=== PATIENT | male | born 1940 | race Caucasian/White ===

== ENCOUNTER 2020-05-13 11:28 | Emergency (ER) | payer MEDICARE, BC ==
--- NOTE | 2020-05-13 12:03 | EDM.PDOC ---
ED HPI GENERAL MEDICAL PROBLEM - General Chief Complaint: Cardiovascular Problem Stated Complaint: DIZZY Time Seen by Provider: 05/13/20 11:45 Source of Information: Reports: Patient, Family, Old Records, RN History Limitations: Reports: No Limitations - History of Present Illness INITIAL COMMENTS - FREE TEXT/NARRATIVE: 79-year-old male felt a little lightheaded this morning but he does on occasion feel like that. He was watching his partner in the kitchen when all of a sudden she heard him fall and found him face down on the floor. Currently no loss of consciousness. He was awake and seemingly aware right away. He wanted to get up and said he felt fine but he remained bit dizzy when he did set up apparently. Paramedics were called and they noted that he would get hypotensive when they would sit him up or try to stand apparently. He denies any visual or auditory changes or headaches. He denies any chest pain or shortness of breath and no feeling of palpitations at any time He works out regularly on an exercise bike wiyot and walks regularly and has not had any issues and feels he is in good shape. He was here 5 years ago with a syncopal episode and was noted to have atrial fib flutter similar to today and subsequently pacemaker which she has at the moment. He is not on blood thinners but does take aspirin He does not recall and his partner does not recall any peripheral cyanosis episodes - Related Data Allergies Allergy/AdvReac Type Severity Reaction Status Date / Time No Known Allergies Allergy Verified 05/13/20 11:43 Home Meds: Home Meds Aspirin [Olivia Chewable Aspirin] 81 mg PO DAILY 10/05/14 [History] Multivitamin [Multivitamins] 1 tab PO DAILY 10/05/14 [History] Allopurinol [Zyloprim] 2 tab PO DAILY 05/13/20 [History] Colchicine 2 tab PO ASDIRECTED 05/13/20 [History] Folic Acid 1 tab PO DAILY 05/13/20 [History] Methotrexate 4 tab PO WEEKLY 05/13/20 [History] amLODIPine [Norvasc] 0.5 tab PO DAILY 05/13/20 [History] lisinopriL [Prinivil] 1 tab PO DAILY 05/13/20 [History] Past Medical History Other Musculoskeletal History: Polymyositis rheumatica Social & Family History - Living Situation & Occupation Living situation: Reports: , with Significant Other Occupation: Retired ED ROS GENERAL - Review of Systems Review Of Systems: See Below Constitutional: Reports: No Symptoms HEENT: Reports: No Symptoms Respiratory: Reports: No Symptoms Cardiovascular: Reports: Lightheadedness, Syncope Endocrine: Reports: No Symptoms GI/Abdominal: Reports: No Symptoms : Reports: No Symptoms Musculoskeletal: Reports: No Symptoms Skin: Reports: No Symptoms Neurological: Reports: Dizziness, Weakness Psychiatric: Reports: No Symptoms Hematologic/Lymphatic: Reports: No Symptoms ED EXAM, GENERAL - Physical Exam Exam: See Below Free Text/Narrative:: Alert cooperative older male lying on the gurney appearing anxious but not in immediate distress. Vital signs are noted and his pulse ox is in the mid 80s. HEENT shows no tenderness on compression of the head or the face. He has a bruise on his nose but no bony tenderness is noted. He does have an abrasion to his upper lip but good occlusion and no pain on biting. Tongue is okay. No facial droop. HEENT shows eyes ears nose and throat otherwise normal His neck is supple nontender normal range of motion Chest is clear with a regular rate and rhythm with occasional extra beats. Pacemaker in the upper left chest Abdomen soft active bowel sounds nontender without mass Extremities without edema or abnormality noted Skin has some cyanosis of the nailbeds on the hands bilaterally which he and his partner have not noticed before. She says his hands are always cold however Neurologic physiologic range of motion tone without focal deficits noted He notes concern about being in the hospital because of the Covid fear. He has been pretty much at home with his partner except for trips to the mailbox with minimal exposure he thinks He is under the care of Dr. Johnson tubular riveter in [place] and Dr. Blair in [place] Exam Limited By: No Limitations General Appearance: Alert, WD/WN, Anxious Course - Vital Signs Text/Narrative:: Review of the old records shows 5 years ago a similar presentation as today. Cardiogram has the same morphology historically as today with atrial fib flutter paced rhythm and some PVCs. He is under the care of Dr. Johnson cardiology and [facility] and Dr. Blair in [place] 1:[address] of the head is read as negative per radiologist. BNP is 558 which is slightly elevated CRP 0.82 slightly up Hemoglobin is 16.4 D-dimer is 883 which adjusted for age may be normal Covid is negative Carboxyhemoglobin 2.3 Chest x-ray has a pacemaker as I see it in other than penetration appears similar to that of 2015. On 2 L of oxygen his pulse ox comes from the mid 80s to the 90s Patient is ambulating around the room. A standing blood pressure is about 120/80. He would like to go home and I do not see any real reason he has a stay in hospital at the moment. I feel he can adequately follow-up with Dr. Johnson and or Dr. Parks in the office and return here for recurrent new symptoms. He is advised about using great care. He would like to ride 81 miles on his birthday [birth year] coincident with my birthday Last Recorded V/S: Last Vital Signs Temp 36.2 C 05/13/20 12:06 Pulse 77 05/13/20 13:03 Resp 16 05/13/20 13:03 BP 127/87 05/13/20 13:18 Pulse Ox 86 L 05/13/20 12:06 - Orders/Labs/Meds Labs: Laboratory Tests 05/13/20 05/13/20 05/13/20 Range/Units 12:02 12:02 12:02 WBC 9.1 (4.5-11.0) K/uL RBC 4.70 (4.30-5.90) M/uL Hgb 16.4 H D (12.0-15.0) g/dL Hct 47.8 (40.0-54.0) % MCV 102 H (80-98) fL MCH 35 H (27-31) pg MCHC 34 (32-36) % Plt Count 208 (150-400) K/uL PT 12.1 H (9.5-12.0) sec INR 1.11 (0.80-1.20) D-Dimer, Quantitative 883.26 H (0.0-500.0) ng/mL ABG Hemoglobin (13.5-18.0) g/dL ABG Oxyhemoglobin % ABG Carboxyhemoglobin (0.0-1.6) % ABG Methemoglobin % VBG pH (7.350-7.450) VBG pCO2 mm/Hg VBG pO2 mm/Hg VBG HCO3 mmol/L VBG Total CO2 mmol/L VBG O2 Saturation VBG O2 Content %vol VBG Base Excess mm/L O2 Delivery Device Sodium (140-148) mmol/L Potassium (3.6-5.2) mmol/L Chloride (100-108) mmol/L Carbon Dioxide (21-32) mmol/L Anion Gap (5.0-14.0) mmol/L BUN (7-18) mg/dL Creatinine (0.8-1.3) mg/dL Est Cr Clr Drug Dosing mL/min Estimated GFR (MDRD) (>60) Glucose (74-106) mg/dL Calcium (8.5-10.1) mg/dL Total Bilirubin (0.2-1.0) mg/dL AST (15-37) U/L ALT (12-78) U/L Alkaline Phosphatase (46-116) U/L Troponin I (0.000-0.056) ng/mL C-Reactive Protein (0.0-0.3) mg/dL NT-Pro-B Natriuret Pep (5-450) pg/mL Total Protein (6.4-8.2) g/dL Albumin (3.4-5.0) g/dL Globulin (2.3-3.5) g/dL Albumin/Globulin Ratio (1.2-2.2) Urine Color (YELLOW) Urine Appearance (CLEAR) Urine pH (5.0-8.0) Ur Specific Sperry (1.008-1.030) Urine Protein (NEGATIVE) mg/dL Urine Glucose (UA) (NEGATIVE) mg/dL Urine Ketones (NEGATIVE) mg/dL Urine Occult Blood (NEGATIVE) Urine Nitrite (NEGATIVE) Urine Bilirubin (NEGATIVE) Urine Urobilinogen (0.2-1.0) EU/dL Ur Leukocyte Esterase (NEGATIVE) Urine RBC (0-5) Urine WBC (0-5) Ur Epithelial Cells Amorphous Sediment Urine Bacteria Urine Mucus SARS CoV-2 RNA Rapid JOSE 05/13/20 05/13/20 05/13/20 Range/Units 12:02 12:02 12:12 WBC (4.5-11.0) K/uL RBC (4.30-5.90) M/uL Hgb (12.0-15.0) g/dL Hct (40.0-54.0) % MCV (80-98) fL MCH (27-31) pg MCHC (32-36) % Plt Count (150-400) K/uL PT (9.5-12.0) sec INR (0.80-1.20) D-Dimer, Quantitative (0.0-500.0) ng/mL ABG Hemoglobin 17.0 (13.5-18.0) g/dL ABG Oxyhemoglobin 40.1 % ABG Carboxyhemoglobin 2.3 H (0.0-1.6) % ABG Methemoglobin 0.8 % VBG pH 7.439 (7.350-7.450) VBG pCO2 38.2 mm/Hg VBG pO2 24.8 mm/Hg VBG HCO3 25.4 mmol/L VBG Total CO2 21.8 mmol/L VBG O2 Saturation 41.4 VBG O2 Content 9.6 %vol VBG Base Excess 1.9 mm/L O2 Delivery Device Room air Sodium 136 L (140-148) mmol/L Potassium 4.6 (3.6-5.2) mmol/L Chloride 101 (100-108) mmol/L Carbon Dioxide 25 (21-32) mmol/L Anion Gap 14.6 H (5.0-14.0) mmol/L BUN 16 (7-18) mg/dL Creatinine 1.3 (0.8-1.3) mg/dL Est Cr Clr Drug Dosing 48.27 mL/min Estimated GFR (MDRD) 53 L (>60) Glucose 115 H (74-106) mg/dL Calcium 9.2 (8.5-10.1) mg/dL Total Bilirubin 0.7 D (0.2-1.0) mg/dL AST 20 (15-37) U/L ALT 28 (12-78) U/L Alkaline Phosphatase 64 (46-116) U/L Troponin I < 0.017 (0.000-0.056) ng/mL C-Reactive Protein 0.82 H (0.0-0.3) mg/dL NT-Pro-B Natriuret Pep 558 H (5-450) pg/mL Total Protein 6.7 (6.4-8.2) g/dL Albumin 3.5 (3.4-5.0) g/dL Globulin 3.2 (2.3-3.5) g/dL Albumin/Globulin Ratio 1.1 L (1.2-2.2) Urine Color (YELLOW) Urine Appearance (CLEAR) Urine pH (5.0-8.0) Ur Specific Sperry (1.008-1.030) Urine Protein (NEGATIVE) mg/dL Urine Glucose (UA) (NEGATIVE) mg/dL Urine Ketones (NEGATIVE) mg/dL Urine Occult Blood (NEGATIVE) Urine Nitrite (NEGATIVE) Urine Bilirubin (NEGATIVE) Urine Urobilinogen (0.2-1.0) EU/dL Ur Leukocyte Esterase (NEGATIVE) Urine RBC (0-5) Urine WBC (0-5) Ur Epithelial Cells Amorphous Sediment Urine Bacteria Urine Mucus SARS CoV-2 RNA Rapid JOSE Negative 05/13/20 Range/Units 13:31 WBC (4.5-11.0) K/uL RBC (4.30-5.90) M/uL Hgb (12.0-15.0) g/dL Hct (40.0-54.0) % MCV (80-98) fL MCH (27-31) pg MCHC (32-36) % Plt Count (150-400) K/uL PT (9.5-12.0) sec INR (0.80-1.20) D-Dimer, Quantitative (0.0-500.0) ng/mL ABG Hemoglobin (13.5-18.0) g/dL ABG Oxyhemoglobin % ABG Carboxyhemoglobin (0.0-1.6) % ABG Methemoglobin % VBG pH (7.350-7.450) VBG pCO2 mm/Hg VBG pO2 mm/Hg VBG HCO3 mmol/L VBG Total CO2 mmol/L VBG O2 Saturation VBG O2 Content %vol VBG Base Excess mm/L O2 Delivery Device Sodium (140-148) mmol/L Potassium (3.6-5.2) mmol/L Chloride (100-108) mmol/L Carbon Dioxide (21-32) mmol/L Anion Gap (5.0-14.0) mmol/L BUN (7-18) mg/dL Creatinine (0.8-1.3) mg/dL Est Cr Clr Drug Dosing mL/min Estimated GFR (MDRD) (>60) Glucose (74-106) mg/dL Calcium (8.5-10.1) mg/dL Total Bilirubin (0.2-1.0) mg/dL AST (15-37) U/L ALT (12-78) U/L Alkaline Phosphatase (46-116) U/L Troponin I (0.000-0.056) ng/mL C-Reactive Protein (0.0-0.3) mg/dL NT-Pro-B Natriuret Pep (5-450) pg/mL Total Protein (6.4-8.2) g/dL Albumin (3.4-5.0) g/dL Globulin (2.3-3.5) g/dL Albumin/Globulin Ratio (1.2-2.2) Urine Color Yellow (YELLOW) Urine Appearance Slightly cloudy A (CLEAR) Urine pH 7.5 (5.0-8.0) Ur Specific Sperry 1.020 (1.008-1.030) Urine Protein 30 H (NEGATIVE) mg/dL Urine Glucose (UA) Negative (NEGATIVE) mg/dL Urine Ketones Trace H (NEGATIVE) mg/dL Urine Occult Blood Negative (NEGATIVE) Urine Nitrite Negative (NEGATIVE) Urine Bilirubin Negative (NEGATIVE) Urine Urobilinogen 0.2 (0.2-1.0) EU/dL Ur Leukocyte Esterase Negative (NEGATIVE) Urine RBC Not seen (0-5) Urine WBC 0-5 (0-5) Ur Epithelial Cells Not seen Amorphous Sediment Moderate Urine Bacteria Rare Urine Mucus Rare SARS CoV-2 RNA Rapid JOSE Departure - Departure Time of Disposition: 13:45 Disposition: Home, Self-Care 01 Condition: Good Clinical Impression: Syncope and collapse, Pacemaker, Arrhythmia, Facial abrasion, Atrial fibrillation and flutter Instructions: Syncope, [id number] Referrals: Live Blair MD [Primary Care Provider] - Forms: ED Department Discharge Additional Instructions: Use care when you are sitting up or standing to walk. If you feel faint or lightheaded sit down or lay down immediately. Return for new or worse symptoms. Follow-up with Dr. Johnson by appointment this next week and call him. Sepsis Event Note (ED) - Focused Exam Vital Signs: Vital Signs Temp Pulse Resp BP Pulse Ox 05/13/20 13:18 127/87 05/13/20 13:03 77 16 117/92 H 05/13/20 12:43 60 15 124/85 05/13/20 12:06 36.2 C 72 17 144/64 H 86 L 05/13/20 12:03 60 14 118/76 05/13/20 11:43 71 10 L 133/80 05/13/20 11:35 36.2 C 72 17 144/64 H 86 L
--- NOTE | 2020-05-13 12:51 | CRLCT ---
HISTORY: Syncope. COMPARISON: None. TECHNIQUE: Noncontrast axial images were obtained through the brain. FINDINGS: Meneses-white matter differentiation is preserved. No evidence for acute intracranial hemorrhage or infarction. No midline shift or mass effect. The ventricles are nondilated and symmetric. No abnormal intra or extra-axial fluid collection. The bony calvaria are intact. Visualized paranasal sinuses and mastoid air cells are clear. Benign-appearing scalp cysts. Impression : No acute intracranial pathology. Please note that all CT scans at this facility use dose modulation, iterative reconstruction, and/or weight-based dosing when appropriate to reduce radiation dose to as low as reasonably achievable. Dictated by Martine Vargas MD @ May 13 2020 12:45PM Signed by Dr. Martine Vargas @ May 13 2020 12:49PM
[2020-05-13 13:17] VITALS: PULSE 77
--- NOTE | 2020-05-13 13:30 | CRLCR ---
HISTORY: Pain. COMPARISON: 10/05/2014. FINDINGS: Mild interstitial prominence similar to previous study. No acute infiltrate. Heart size and pulmonary vascularity are within normal limits. Pacemaker. Dictated by Martine Vargas MD @ May 13 2020 1:28PM Signed by Dr. Martine Vargas @ May 13 2020 1:29PM
[2020-05-13 13:35] VITALS: BP 127/87
== END 2020-05-13 14:06 | disposition home or self-care (01) ==
LOC: JP.ED 11:28
DX: R55 Syncope and collapse (principal); S00.33XA Contusion of nose, initial encounter; S00.511A Abrasion of lip, initial encounter; I48.92 Unspecified atrial flutter; R23.0 Cyanosis; Z20.822 Contact with and (suspected) exposure to COVID-19; Z79.82 Long term (current) use of aspirin; Z95.0 Presence of cardiac pacemaker; Z79.899 Other long term (current) drug therapy; W19.XXXA Unspecified fall, initial encounter
CPT/HCPCS: 36415; 70450; 71045; 80053; 81001; 82803; 83880; 84484; 85027; 85379; 85610; 86140; 99285; U0002; 99284

== ENCOUNTER 2020-09-26 07:54 | Day surgery (SDC) | payer MEDICARE, BC ==
[~2020-09-26 07:54] MED LIST: Bupivacaine 0.5% 50 ML MDV ONE; Lidocaine 1% with EPINEPHrine 1:100,000 50 ML MDV ONE; Meropenem 500 MG SDV ONE
[2020-09-26] MEDS ORDERED: ceFAZolin 2 GM in Premix Bag 1 BAG IV ONE (08:15)
[2020-09-26] MEDS ORDERED: Acetaminophen 500 MG Tab PO ONE (08:15)
[2020-09-26] MEDS ORDERED: Dextrose 5%-Lactated Ringers 1,000 ML IV SCH (08:15)
[2020-09-26] MEDS ORDERED: Succinylcholine 200 MG/10 ML MDV ONE (08:55)
[2020-09-26] MEDS ORDERED: Neostigmine Methylsulfate 1 MG/ML 5 ML Syringe ONE (08:55)
[2020-09-26] MEDS ORDERED: fentaNYL 250 MCG/5 ML SDV ONE (08:55)
[2020-09-26] MEDS ORDERED: Dexamethasone 4 MG/ML SDV ONE (08:55)
[2020-09-26] MEDS ORDERED: Rocuronium 50 MG/5 ML Vial ONE (08:55)
[2020-09-26] MEDS ORDERED: Ondansetron 4 MG/2 ML SDV ONE (08:55)
[2020-09-26] MEDS ORDERED: Propofol 200 MG/20 ML SDV ONE (08:55)
[2020-09-26] MEDS ORDERED: Glycopyrrolate 0.2 MG/ML 5 ML MDV ONE (08:55)
[2020-09-26] MEDS ORDERED: Phenylephrine 1% 10 MG/ML SDV ONE (09:28)
[2020-09-26] MEDS ORDERED: Sodium Chloride 0.9% 10 ML ONE (09:28)
[2020-09-26] MEDS ORDERED: Bupivacaine 0.5%/EPINEPHrine 1:200,000 50 ML MDV ONE (09:41)
[2020-09-26] MEDS ORDERED: Sugammadex Sodium 200 MG/2 ML VIAL ONE (09:58)
[2020-09-26 11:45] VITALS: BP 115/71; PULSE 66
--- NOTE | 2020-09-27 16:58 | PCM.EKG ---
#1 Interpretation EKG Date: 09/26/20 Time: 08:20 Rhythm: Other (Paced ventricular complex, occasional premature ventricular complex) Rate (Beats/Min): 73 Maben: Normal P-Wave: Absent QRS: Other (Low voltage extremity leads) ST-T: Normal QT: Normal Comparison: NA - No Prior EKG
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
== END 2020-09-26 12:05 | disposition home or self-care (01) ==
LOC: JP.SDS 07:54
PROVIDERS: ATTEND Surgery
DX: S85.182A Other specified injury of posterior tibial artery, left leg, initial encounter (principal); M79.89 Other specified soft tissue disorders; Z87.891 Personal history of nicotine dependence; Z79.82 Long term (current) use of aspirin; Z79.899 Other long term (current) drug therapy; X58.XXXA Exposure to other specified factors, initial encounter
CPT/HCPCS: 27601; 27603; 35226; 36415; 80048; 83735; 84100; 85027; 87070; 87075; 87205; 88304; 93005; A9270; J0330; J1100; J2020; J2185; J2370; J2405; J2704; J2710; J3010; J3490; J7121

== ENCOUNTER 2020-09-29 16:17 | Inpatient (IN) | payer MEDICARE, BC ==
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
[2020-09-29] MEDS ORDERED: ceFAZolin 1 GM in Sodium Chloride 0.9% 50 ML IV ONE (17:03)
[2020-09-29] MEDS ORDERED: Sodium Chloride 0.9% 1,000 ML IV SCH ×2 (17:15→18:07)
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
[2020-09-29] MEDS ORDERED: Sodium Chloride 0.9% 10 ML Syringe FLUSH PRN (18:07)
[2020-09-29] MEDS ORDERED: Ondansetron 4 MG/2 ML SDV IV PRN (18:07)
[2020-09-29] MEDS ORDERED: Polyethylene Glycol 3350 Powder 17 GM Packet PO PRN (18:07)
[2020-09-29] MEDS ORDERED: Vancomycin 1 GM SDV IV SCH (19:00)
[2020-09-29] MEDS: oxyCODONE 5 MG Tab PO PRN (19:25)
[2020-09-29] MEDS: Piperacillin/Tazobactam 3.375 GM in Sodium Chloride 0.9% 50 ML IV SCH (19:39)
[2020-09-29] MEDS ORDERED: Water For Injection, Sterile 20 ML ONE (19:52)
[2020-09-29] MEDS: Acetaminophen 325 MG Tab PO PRN (20:37)
[2020-09-29] MEDS ORDERED: ceFAZolin 1 GM in Sodium Chloride 0.9% 50 ML IV SCH (22:00)
[2020-09-29] MEDS: HYDROmorphone 0.5 MG/0.5 ML Syringe IVPUSH PRN (22:44)
[2020-09-29] MEDS: Melatonin 3 MG Tab PO SCH (22:46)
[2020-09-30] MEDS: Piperacillin/Tazobactam 3.375 GM in Sodium Chloride 0.9% 50 ML IV SCH ×2 (00:27→06:02)
[2020-09-30] MEDS: HYDROmorphone 0.5 MG/0.5 ML Syringe IVPUSH PRN ×8 (04:16→23:06)
[2020-09-30] MEDS ORDERED: fentaNYL 100 MCG/2 ML SDV ONE (09:33)
[2020-09-30] MEDS ORDERED: Propofol 200 MG/20 ML SDV ONE (09:33)
[2020-09-30] MEDS: Lisinopril 20 MG Tab PO SCH (11:02)
[2020-09-30] MEDS: Spironolactone 25 MG Tab PO SCH (11:03)
[2020-09-30] MEDS: Metoprolol Succinate 50 MG Tab.ER PO SCH (11:03)
[2020-09-30] MEDS: Aspirin 81 MG Tab.Chew PO SCH (11:03)
[2020-09-30] MEDS: Allopurinol 100 MG Tab PO SCH (11:09)
[2020-09-30] MEDS: Acetaminophen 325 MG Tab PO PRN (11:48)
[2020-09-30] MEDS ORDERED: Piperacillin/Tazobactam/Dext 3.375 GM in Premix Bag 1 BAG IV SCH (12:00)
[2020-09-30] MEDS: Cyclobenzaprine 10 MG Tab PO PRN (12:21)
--- NOTE | 2020-09-30 15:57 | PCM.PN ---
- General Info Date of Service: 09/30/20 Subjective Update: Mr. Moralez has been fairly stable since admission, white blood cell count has remained normal and he has been afebrile. He is somewhat confused and mildly agitated. He was taken to the operating room earlier today by Dr. eParson for manipulation of the foot and ankle as well as placement of a cam walker. He continues to experience pain. He is unable to provide meaningful information concerning symptoms or review of systems because of confusion. Functional Status: Reports: Tolerating Diet, Urinating. Denies: Ambulating - Patient Data Vitals - Most Recent: Last Vital Signs Temp 99.1 F 09/30/20 14:33 Pulse 105 H 09/30/20 14:33 Resp 18 09/30/20 14:33 BP 109/80 09/30/20 14:33 Pulse Ox 97 09/30/20 14:33 Weight - Most Recent: 203 lb 11.2 oz I&O - Last 24 Hours: Intake & Output 09/30/20 09/30/20 09/30/20 06:59 14:59 22:59 Intake Total 300 Output Total 400 Balance -100 Lab Results Last 24 Hours: Laboratory Results - last 24 hr 09/29/20 09/29/20 09/29/20 Range/Units 16:48 16:48 16:48 WBC (4.5-11.0) K/uL RBC (4.30-5.90) M/uL Hgb (12.0-15.0) g/dL Hct (40.0-54.0) % MCV (80-98) fL MCH (27-31) pg MCHC (32-36) % Plt Count (150-400) K/uL Neut % (Auto) (36-66) % Lymph % (Auto) (24-44) % Steele % (Auto) (2-6) % Eos % (Auto) (2-4) % Baso % (Auto) (0-1) % Sodium (140-148) mmol/L Potassium (3.6-5.2) mmol/L Chloride (100-108) mmol/L Carbon Dioxide (21-32) mmol/L Anion Gap (5.0-14.0) mmol/L BUN (7-18) mg/dL Creatinine (0.8-1.3) mg/dL Est Cr Clr Drug Dosing mL/min Estimated GFR (MDRD) (>60) Glucose (74-106) mg/dL Lactic Acid 1.1 (0.4-2.0) mmol/L Calcium (8.5-10.1) mg/dL C-Reactive Protein 14.34 H (0.0-0.3) mg/dL Procalcitonin < 0.05 ng/mL 09/29/20 09/29/20 09/30/20 Range/Units 16:53 16:53 05:30 WBC 7.3 8.3 (4.5-11.0) K/uL RBC 3.14 L 2.95 L (4.30-5.90) M/uL Hgb 11.1 L 10.3 L (12.0-15.0) g/dL Hct 31.6 L 29.7 L (40.0-54.0) % MCV 101 H 101 H (80-98) fL MCH 35 H 35 H (27-31) pg MCHC 35 35 (32-36) % Plt Count 270 248 (150-400) K/uL Neut % (Auto) 74.9 H 82.3 H (36-66) % Lymph % (Auto) 11.4 L 7.9 L (24-44) % Steele % (Auto) 12.8 H 9.7 H (2-6) % Eos % (Auto) 0.6 L 0.0 L (2-4) % Baso % (Auto) 0.3 0.1 (0-1) % Sodium 128 L (140-148) mmol/L Potassium 4.6 (3.6-5.2) mmol/L Chloride 94 L (100-108) mmol/L Carbon Dioxide 25 (21-32) mmol/L Anion Gap 13.6 (5.0-14.0) mmol/L BUN 24 H (7-18) mg/dL Creatinine 1.0 (0.8-1.3) mg/dL Est Cr Clr Drug Dosing 63.59 mL/min Estimated GFR (MDRD) > 60 (>60) Glucose 93 (74-106) mg/dL Lactic Acid (0.4-2.0) mmol/L Calcium 9.2 (8.5-10.1) mg/dL C-Reactive Protein (0.0-0.3) mg/dL Procalcitonin ng/mL 09/30/20 Range/Units 05:30 WBC (4.5-11.0) K/uL RBC (4.30-5.90) M/uL Hgb (12.0-15.0) g/dL Hct (40.0-54.0) % MCV (80-98) fL MCH (27-31) pg MCHC (32-36) % Plt Count (150-400) K/uL Neut % (Auto) (36-66) % Lymph % (Auto) (24-44) % Steele % (Auto) (2-6) % Eos % (Auto) (2-4) % Baso % (Auto) (0-1) % Sodium 130 L (140-148) mmol/L Potassium 4.6 (3.6-5.2) mmol/L Chloride 98 L (100-108) mmol/L Carbon Dioxide 22 (21-32) mmol/L Anion Gap 14.6 H (5.0-14.0) mmol/L BUN 16 (7-18) mg/dL Creatinine 0.9 (0.8-1.3) mg/dL Est Cr Clr Drug Dosing 68.56 mL/min Estimated GFR (MDRD) > 60 (>60) Glucose 116 H (74-106) mg/dL Lactic Acid (0.4-2.0) mmol/L Calcium 8.1 L (8.5-10.1) mg/dL C-Reactive Protein (0.0-0.3) mg/dL Procalcitonin ng/mL Med Orders - Current: Current Medications Acetaminophen (Acetaminophen 325 Mg Tab) 650 mg PO Q4H PRN PRN Reason: Pain (Mild 1-3)/fever Last Admin: 09/30/20 11:48 Dose: 650 mg Documented by: Allopurinol (Allopurinol 100 Mg Tab) 200 mg PO DAILY COUNT INCLUDES THE [facility] Last Admin: 09/30/20 11:09 Dose: 200 mg Documented by: Aspirin (Aspirin 81 Mg Tab.Chew) 81 mg PO DAILY COUNT INCLUDES THE [facility] Last Admin: 09/30/20 11:03 Dose: 81 mg Documented by: Cyclobenzaprine HCl (Cyclobenzaprine 10 Mg Tab) 10 mg PO Q8H PRN PRN Reason: Spasms Last Admin: 09/30/20 12:21 Dose: 10 mg Documented by: Hydromorphone HCl (Hydromorphone 0.5 Mg/0.5 Ml Syringe) 0.5 - 1 mg IVPUSH Q1H PRN PRN Reason: Pain (severe 7-10) Last Admin: 09/30/20 14:27 Dose: 0.5 mg Documented by: Lisinopril (Lisinopril 20 Mg Tab) 20 mg PO DAILY COUNT INCLUDES THE [facility] Last Admin: 09/30/20 11:02 Dose: 20 mg Documented by: Melatonin (Melatonin 3 Mg Tab) 3 mg PO BEDTIME COUNT INCLUDES THE [facility] Last Admin: 09/29/20 22:46 Dose: 3 mg Documented by: Methotrexate (Methotrexate 2.5 Mg Tab) 10 mg PO Q7D COUNT INCLUDES THE [facility] Metoprolol Succinate (Metoprolol Succinate 50 Mg Tab.Er) 50 mg PO DAILY COUNT INCLUDES THE [facility] Last Admin: 09/30/20 11:03 Dose: 50 mg Documented by: Ondansetron HCl (Ondansetron 4 Mg/2 Ml Sdv) 4 mg IV Q4H PRN PRN Reason: Nausea/Vomiting Oxycodone HCl (Oxycodone 5 Mg Tab) 5 mg PO Q4H PRN PRN Reason: Pain (moderate 4-6) Last Admin: 09/29/20 19:25 Dose: 5 mg Documented by: Polyethylene Glycol (Polyethylene Glycol 3350 Powder 17 Gm Packet) 17 gm PO DAILY PRN PRN Reason: Constipation Rivaroxaban (Rivaroxaban 10 Mg Tab) 20 mg PO WITHDINSILAS COUNT INCLUDES THE [facility] Sodium Chloride (Sodium Chloride 0.9% 10 Ml Syringe) 10 ml FLUSH ASDIRECTED PRN PRN Reason: Keep Vein Open Spironolactone (Spironolactone 25 Mg Tab) 25 mg PO DAILY COUNT INCLUDES THE [facility] Last Admin: 09/30/20 11:03 Dose: 25 mg Documented by: Discontinued Medications Fentanyl (Fentanyl 100 Mcg/2 Ml Sdv) Confirm Administered Dose 100 mcg .ROUTE .[facility]-MED ONE Stop: 09/30/20 09:34 Hydromorphone HCl (Hydromorphone 0.5 Mg/0.5 Ml Syringe) 0.5 mg IVPUSH Q2H PRN PRN Reason: Pain (severe 7-10) Last Admin: 09/30/20 11:15 Dose: 0.5 mg Documented by: Cefazolin Sodium 1 gm/ Sodium (Chloride) 50 mls @ 100 mls/hr IV ONETIME ONE Stop: 09/29/20 17:32 Last Admin: 09/29/20 17:25 Dose: 100 mls/hr Documented by: Sodium Chloride (Normal Saline) 1,000 mls @ 250 mls/hr IV ASDIRECTED COUNT INCLUDES THE [facility] Last Admin: 09/29/20 17:20 Dose: 250 mls/hr Documented by: Sodium Chloride (Normal Saline) 1,000 mls @ 125 mls/hr IV ASDIRECTED COUNT INCLUDES THE [facility] Last Admin: 09/30/20 00:05 Dose: 125 mls/hr Documented by: Cefazolin Sodium 1 gm/ Sodium (Chloride) 50 mls @ 200 mls/hr IV Q8HR COUNT INCLUDES THE [facility] Piperacillin Sod/Tazobactam (Sod 3.375 gm/ Sodium Chloride) 50 mls @ 100 mls/hr IV Q6H COUNT INCLUDES THE [facility] Last Admin: 09/30/20 06:02 Dose: 100 mls/hr Documented by: Vancomycin HCl 1.25 gm/ Sodium (Chloride) 250 mls @ 166.667 mls/hr IV BID COUNT INCLUDES THE [facility] Last Admin: 09/29/20 20:30 Dose: 166.667 mls/hr Documented by: Sterile Water (Sterile Water For Injection) Confirm Administered Dose 20 mls @ as directed .ROUTE .[facility]-MED ONE Stop: 09/29/20 19:53 Last Admin: 09/29/20 20:01 Dose: Not Given Documented by: Piperacillin/Tazobactam/ (Dextrose 3.375 gm/ Premix) 50 mls @ 100 mls/hr IV Q6H COUNT INCLUDES THE [facility] Last Admin: 09/30/20 13:45 Dose: 100 mls/hr Documented by: Vancomycin HCl 1.25 gm/ Sodium (Chloride) 250 mls @ 166.667 mls/hr IV Q12H COUNT INCLUDES THE [facility] Last Admin: 09/30/20 11:23 Dose: 166.667 mls/hr Documented by: Propofol (Propofol 200 Mg/20 Ml Sdv) Confirm Administered Dose 200 mg .ROUTE .STK-MED ONE Stop: 09/30/20 09:34 Vancomycin HCl (Vancomycin 1 Gm Sdv) 1 gm IV .PHARMACY TO DOSE COUNT INCLUDES THE [facility] Stop: 09/30/20 07:30 - Exam General: Alert, Cooperative, Mild Distress. No: Oriented Lungs: Clear to Auscultation, Normal Respiratory Effort Cardiovascular: Regular Rate, No Murmurs, Irregular Rhythm GI/Abdominal Exam: Soft, Non-Tender, No Organomegaly, No Distention Extremities: Other (Cam walker on the left lower extremity) Skin: Warm, Dry - Patient Data Lab Results Last 24 hrs: Laboratory Results - last 24 hr 09/29/20 09/29/20 09/29/20 Range/Units 16:48 16:48 16:48 WBC (4.5-11.0) K/uL RBC (4.30-5.90) M/uL Hgb (12.0-15.0) g/dL Hct (40.0-54.0) % MCV (80-98) fL MCH (27-31) pg MCHC (32-36) % Plt Count (150-400) K/uL Neut % (Auto) (36-66) % Lymph % (Auto) (24-44) % Steele % (Auto) (2-6) % Eos % (Auto) (2-4) % Baso % (Auto) (0-1) % Sodium (140-148) mmol/L Potassium (3.6-5.2) mmol/L Chloride (100-108) mmol/L Carbon Dioxide (21-32) mmol/L Anion Gap (5.0-14.0) mmol/L BUN (7-18) mg/dL Creatinine (0.8-1.3) mg/dL Est Cr Clr Drug Dosing mL/min Estimated GFR (MDRD) (>60) Glucose (74-106) mg/dL Lactic Acid 1.1 (0.4-2.0) mmol/L Calcium (8.5-10.1) mg/dL C-Reactive Protein 14.34 H (0.0-0.3) mg/dL Procalcitonin < 0.05 ng/mL 09/29/20 09/29/20 09/30/20 Range/Units 16:53 16:53 05:30 WBC 7.3 8.3 (4.5-11.0) K/uL RBC 3.14 L 2.95 L (4.30-5.90) M/uL Hgb 11.1 L 10.3 L (12.0-15.0) g/dL Hct 31.6 L 29.7 L (40.0-54.0) % MCV 101 H 101 H (80-98) fL MCH 35 H 35 H (27-31) pg MCHC 35 35 (32-36) % Plt Count 270 248 (150-400) K/uL Neut % (Auto) 74.9 H 82.3 H (36-66) % Lymph % (Auto) 11.4 L 7.9 L (24-44) % Steele % (Auto) 12.8 H 9.7 H (2-6) % Eos % (Auto) 0.6 L 0.0 L (2-4) % Baso % (Auto) 0.3 0.1 (0-1) % Sodium 128 L (140-148) mmol/L Potassium 4.6 (3.6-5.2) mmol/L Chloride 94 L (100-108) mmol/L Carbon Dioxide 25 (21-32) mmol/L Anion Gap 13.6 (5.0-14.0) mmol/L BUN 24 H (7-18) mg/dL Creatinine 1.0 (0.8-1.3) mg/dL Est Cr Clr Drug Dosing 63.59 mL/min Estimated GFR (MDRD) > 60 (>60) Glucose 93 (74-106) mg/dL Lactic Acid (0.4-2.0) mmol/L Calcium 9.2 (8.5-10.1) mg/dL C-Reactive Protein (0.0-0.3) mg/dL Procalcitonin ng/mL 09/30/20 Range/Units 05:30 WBC (4.5-11.0) K/uL RBC (4.30-5.90) M/uL Hgb (12.0-15.0) g/dL Hct (40.0-54.0) % MCV (80-98) fL MCH (27-31) pg MCHC (32-36) % Plt Count (150-400) K/uL Neut % (Auto) (36-66) % Lymph % (Auto) (24-44) % Steele % (Auto) (2-6) % Eos % (Auto) (2-4) % Baso % (Auto) (0-1) % Sodium 130 L (140-148) mmol/L Potassium 4.6 (3.6-5.2) mmol/L Chloride 98 L (100-108) mmol/L Carbon Dioxide 22 (21-32) mmol/L Anion Gap 14.6 H (5.0-14.0) mmol/L BUN 16 (7-18) mg/dL Creatinine 0.9 (0.8-1.3) mg/dL Est Cr Clr Drug Dosing 68.56 mL/min Estimated GFR (MDRD) > 60 (>60) Glucose 116 H (74-106) mg/dL Lactic Acid (0.4-2.0) mmol/L Calcium 8.1 L (8.5-10.1) mg/dL C-Reactive Protein (0.0-0.3) mg/dL Procalcitonin ng/mL Result Diagrams: 09/30/20 05:30 09/30/20 05:30 Sepsis Event Note - Evaluation Sepsis Screening Result: No Definite Risk - Focused Exam Vital Signs: Vital Signs Temp Temp Temp Pulse Pulse Resp BP 09/30/20 14:33 99.1 F 105 H 18 09/30/20 12:18 99.1 F 09/30/20 11:48 100.2 F 09/30/20 11:30 100.2 F 105 H 20 09/30/20 11:03 93 131/90 09/30/20 11:02 131/90 09/30/20 10:40 96 18 09/30/20 10:35 97.9 F 88 18 09/30/20 10:30 90 18 09/30/20 10:25 92 18 09/30/20 10:20 97.3 F 91 20 09/30/20 09:57 16 09/30/20 07:32 99.3 F 89 16 BP Pulse Ox 09/30/20 14:33 109/80 97 09/30/20 12:18 09/30/20 11:48 09/30/20 11:30 131/101 H 99 09/30/20 11:03 09/30/20 11:02 09/30/20 10:40 116/70 09/30/20 10:35 128/76 09/30/20 10:30 116/70 09/30/20 10:25 103/64 09/30/20 10:20 96/60 09/30/20 09:57 96 09/30/20 07:32 134/71 96 - Problem List Review Problem List Initiated/Reviewed/Updated: Yes - My Orders Last 24 Hours: My Active Orders 09/29/20 17:21 Resuscitation Status Routine 09/29/20 18:07 Acetaminophen [TylenoL] 650 mg PO Q4H PRN Ondansetron [Zofran] 4 mg IV Q4H PRN Sodium Chloride 0.9% [Saline Flush] 10 ml FLUSH ASDIRECTED PRN oxyCODONE 5 mg PO Q4H PRN polyethylene glycoL 3350 [MiraLAX] 17 gm PO DAILY PRN 09/29/20 18:07 Patient Status [ADT] Routine Ambulate [RC] QID Height and Weight [RC] 0500 Intake and Output [RC] QSHIFT Notify Provider Vital Signs [RC] ASDIRECTED Oxygen Therapy [RC] PRN Peripheral IV Care [RC] Q12H Up to Chair [RC] QID Vital Signs [RC] Q4H Peripheral IV Insertion Adult [OM.PC] Routine VTE Pharmacological Contraindications [AST] Per Unit Routine 09/29/20 21:00 Melatonin 3 mg PO BEDTIME 09/30/20 09:00 Aspirin 81 mg PO DAILY Metoprolol Succinate [Toprol XL] 50 mg PO DAILY Spironolactone [Aldactone] 25 mg PO DAILY allopurinoL [Zyloprim] 200 mg PO DAILY lisinopriL [Prinivil] 20 mg PO DAILY 09/30/20 15:51 Convert IV to Saline Lock [OM.PC] Routine 09/30/20 17:00 Rivaroxaban [Xarelto] 20 mg PO WITHDINNER 10/06/20 09:00 Methotrexate 10 mg PO Q7D - Plan Plan:: ASSESSMENT AND PLAN INJURY TO THE LEFT LOWER LEG WITH HEMATOMA-status post surgical debridement by Dr. Pearson, increased pain present over the past few days. He has been unable to ambulate because of the pain today. Area of concern with erythema appears to be secondary to inflammation and not infection. CAM Walker placed in the operating room by Dr. Pearson earlier today -Xarelto on hold -Postoperative care per Dr. Pearson POSSIBLE CELLULITIS LEFT LOWER LEG-it appears less likely that this represents infection and likely is secondary to underlying inflammation -Discontinue IV vancomycin and Zosyn MAINTENANCE ISSUES -DVT prophylaxis; hold on anticoagulation because of bleeding -GI prophylaxis; not indicated -Bowser catheter; not indicated -Nutrition; regular diet, n.p.o. after midnight -Nicotine dependence; not required CODE STATUS-FULL CODE ADMISSION STATUS-patient will be admitted to inpatient status, expect at least a 2 night hospital stay for evaluation and management of problems as outlined above. At the time of this admission I do not reasonably expected evaluation and management of this problem will require more than a 96 hour hospital stay. DISPOSITION-anticipate discharge to home after the hospital stay.
[2020-09-30] MEDS: oxyCODONE 5 MG Tab PO PRN ×2 (16:17→22:03)
[2020-09-30] MEDS ORDERED: Rivaroxaban 10 MG Tab PO SCH (17:00)
[2020-09-30] MEDS ORDERED: Lidocaine 2% Jelly 10 ML Urojet MUCMEM ONE (19:32)
[2020-09-30] MEDS: Melatonin 3 MG Tab PO SCH (20:52)
[2020-10-01] MEDS: Acetaminophen 325 MG Tab PO PRN ×4 (02:25→23:38)
[2020-10-01] MEDS: HYDROmorphone 0.5 MG/0.5 ML Syringe IVPUSH PRN ×4 (02:26→21:44)
[2020-10-01] MEDS: Cyclobenzaprine 10 MG Tab PO PRN (02:31)
[2020-10-01] MEDS: oxyCODONE 5 MG Tab PO PRN ×4 (09:04→23:37)
[2020-10-01] MEDS: Lisinopril 20 MG Tab PO SCH (09:05)
[2020-10-01] MEDS: Aspirin 81 MG Tab.Chew PO SCH (09:05)
[2020-10-01] MEDS: Metoprolol Succinate 50 MG Tab.ER PO SCH (09:07)
[2020-10-01] MEDS: Spironolactone 25 MG Tab PO SCH (09:08)
[2020-10-01] MEDS: Allopurinol 100 MG Tab PO SCH (09:53)
[2020-10-01] MEDS ORDERED: Furosemide 20 MG/2 ML VIAL IV ONE (10:00)
[2020-10-01] MEDS: Magnesium Sulfate/Water 2 GM/50 ML BAG IV SCH ×3 (10:27→22:03)
[2020-10-01] MEDS: Tamsulosin 0.4 MG Cap.ER PO SCH ×2 (10:27→21:59)
[2020-10-01] MEDS: Potassium Phos in 0.9 % NaCl 15 MMOL in Premix Bag 1 BAG IV SCH ×6 (12:42→19:06)
[2020-10-01] MEDS ORDERED: Sodium Chloride 0.9% 500 ML IV ONE (16:00)
--- NOTE | 2020-10-01 16:47 | PCM.PN ---
- General Info Date of Service: 10/01/20 Subjective Update: Mr. Moralez has been more agitated and restless today. He has experienced ongoing pain related to his left lower extremity. He is confused today and disoriented. Feels that his pain in the leg has improved from yesterday. Because of confusion he is unable to provide meaningful history concerning review of systems. - Patient Data Vitals - Most Recent: Last Vital Signs Temp 98.1 F 10/01/20 08:32 Pulse 118 H 10/01/20 09:07 Resp 24 H 10/01/20 11:54 BP 141/89 H 10/01/20 09:07 Pulse Ox 97 10/01/20 08:32 Weight - Most Recent: 188 lb I&O - Last 24 Hours: Intake & Output 09/30/20 10/01/20 10/01/20 22:59 06:59 14:59 Intake Total 731 540 Output Total 85 110 % Balance -11) -110 551 Lab Results Last 24 Hours: Laboratory Results - last 24 hr 09/30/20 10/01/20 10/01/20 Range/Units 20:00 04:05 04:05 WBC 7.6 (4.5-11.0) K/uL RBC 2.84 L (4.30-5.90) M/uL Hgb 9.8 L (12.0-15.0) g/dL Hct 29.1 L (40.0-54.0) % MCV 103 H (80-98) fL MCH 35 H (27-31) pg MCHC 34 (32-36) % Plt Count 253 (150-400) K/uL Neut % (Auto) 78.1 H (36-66) % Lymph % (Auto) 10.8 L (24-44) % [place] % (Auto) 10.4 H (2-6) % Eos % (Auto) 0.3 L (2-4) % Baso % (Auto) 0.4 (0-1) % Sodium 130 L (140-148) mmol/L Potassium 4.4 (3.6-5.2) mmol/L Chloride 97 L (100-108) mmol/L Carbon Dioxide 24 (21-32) mmol/L Anion Gap 13.4 (5.0-14.0) mmol/L BUN 15 (7-18) mg/dL Creatinine 0.9 (0.8-1.3) mg/dL Est Cr Clr Drug Dosing 68.56 mL/min Estimated GFR (MDRD) > 60 (>60) Glucose 78 (74-106) mg/dL Calcium 8.1 L (8.5-10.1) mg/dL Phosphorus 2.1 L (2.5-4.9) mg/dL Magnesium 1.4 L (1.8-2.4) mg/dL Total Bilirubin 1.3 H D (0.2-1.0) mg/dL AST 19 (15-37) U/L ALT 20 (12-78) U/L Alkaline Phosphatase 54 (46-116) U/L NT-Pro-B Natriuret Pep 4084 H (5-450) pg/mL Total Protein 5.9 L (6.4-8.2) g/dL Albumin 2.5 L (3.4-5.0) g/dL Globulin 3.4 (2.3-3.5) g/dL Albumin/Globulin Ratio 0.7 L (1.2-2.2) Urine Color Yellow (YELLOW) Urine Appearance Clear (CLEAR) Urine pH 6.5 (5.0-8.0) Ur Specific [place] 1.020 (1.008-1.030) Urine Protein Trace H (NEGATIVE) mg/dL Urine Glucose (UA) Negative (NEGATIVE) mg/dL Urine Ketones Negative (NEGATIVE) mg/dL Urine Occult Blood Trace-intact H (NEGATIVE) Urine Nitrite Negative (NEGATIVE) Urine Bilirubin Negative (NEGATIVE) Urine Urobilinogen 0.2 (0.2-1.0) EU/dL Ur Leukocyte Esterase Negative (NEGATIVE) Urine RBC 0-5 (0-5) Urine WBC 0-5 (0-5) Ur Epithelial Cells Not seen Amorphous Sediment Not seen Urine Bacteria Not seen Urine Mucus Not seen Med Orders - Current: Current Medications Acetaminophen (Acetaminophen 325 Mg Tab) 650 mg PO Q4H PRN PRN Reason: Pain (Mild 1-3)/fever Last Admin: 10/01/20 14:13 Dose: 650 mg Documented by: Allopurinol (Allopurinol 100 Mg Tab) 200 mg PO DAILY [facility] Last Admin: 10/01/20 09:53 Dose: 200 mg Documented by: Aspirin (Aspirin 81 Mg Tab.Chew) 81 mg PO DAILY [facility] Last Admin: 10/01/20 09:05 Dose: 81 mg Documented by: Cyclobenzaprine HCl (Cyclobenzaprine 10 Mg Tab) 10 mg PO Q8H PRN PRN Reason: Spasms Last Admin: 10/01/20 02:31 Dose: 10 mg Documented by: Hydromorphone HCl (Hydromorphone 0.5 Mg/0.5 Ml Syringe) 0.5 - 1 mg IVPUSH Q1H PRN PRN Reason: Pain (severe 7-10) Last Admin: 10/01/20 09:53 Dose: 1 mg Documented by: Magnesium Sulfate (Magnesium Sulfate In Water 2 Gm/50 Ml) 2 gm in 50 mls @ 25 mls/hr IV Q6H [facility] Stop: 10/04/20 05:59 Last Admin: 10/01/20 10:27 Dose: 25 mls/hr Documented by: Potassium Phosphate 15 mmol/ (Premix) 250 mls @ 84 mls/hr IV Q3H [facility] Stop: 10/01/20 20:59 Last Admin: 10/01/20 12:42 Dose: 84 mls/hr Documented by: Lisinopril (Lisinopril 20 Mg Tab) 20 mg PO DAILY [facility] Last Admin: 10/01/20 09:05 Dose: 20 mg Documented by: Melatonin (Melatonin 3 Mg Tab) 3 mg PO BEDTIME [facility] Last Admin: 09/30/20 20:52 Dose: 3 mg Documented by: Methotrexate (Methotrexate 2.5 Mg Tab) 10 mg PO Q7D [facility] Metoprolol Succinate (Metoprolol Succinate 50 Mg Tab.Er) 50 mg PO DAILY [facility] Last Admin: 10/01/20 09:07 Dose: 50 mg Documented by: Ondansetron HCl (Ondansetron 4 Mg/2 Ml Sdv) 4 mg IV Q4H PRN PRN Reason: Nausea/Vomiting Oxycodone HCl (Oxycodone 5 Mg Tab) 5 mg PO Q4H PRN PRN Reason: Pain (moderate 4-6) Last Admin: 10/01/20 14:13 Dose: 5 mg Documented by: Polyethylene Glycol (Polyethylene Glycol 3350 Powder 17 Gm Packet) 17 gm PO DAILY PRN PRN Reason: Constipation Rivaroxaban (Rivaroxaban 10 Mg Tab) 20 mg PO WITHRENITA [facility] Sodium Chloride (Sodium Chloride 0.9% 10 Ml Syringe) 10 ml FLUSH ASDIRECTED PRN PRN Reason: Keep Vein Open Spironolactone (Spironolactone 25 Mg Tab) 25 mg PO DAILY [facility] Last Admin: 10/01/20 09:08 Dose: 25 mg Documented by: Tamsulosin HCl (Tamsulosin 0.4 Mg Cap.Er) 0.4 mg PO BEDTIME [facility] Last Admin: 10/01/20 10:27 Dose: 0.4 mg Documented by: Discontinued Medications Fentanyl (Fentanyl 100 Mcg/2 Ml Sdv) Confirm Administered Dose 100 mcg .ROUTE .STK-MED ONE Stop: 09/30/20 09:34 Furosemide (Furosemide 20 Mg/2 Ml Vial) 20 mg IV ONETIME ONE Stop: 10/01/20 10:01 Last Admin: 10/01/20 10:26 Dose: 20 mg Documented by: Hydromorphone HCl (Hydromorphone 0.5 Mg/0.5 Ml Syringe) 0.5 mg IVPUSH Q2H PRN PRN Reason: Pain (severe 7-10) Last Admin: 09/30/20 11:15 Dose: 0.5 mg Documented by: Cefazolin Sodium 1 gm/ Sodium (Chloride) 50 mls @ 100 mls/hr IV ONETIME ONE Stop: 09/29/20 17:32 Last Admin: 09/29/20 17:25 Dose: 100 mls/hr Documented by: Sodium Chloride (Normal Saline) 1,000 mls @ 250 mls/hr IV ASDIRECTED [facility] Last Admin: 09/29/20 17:20 Dose: 250 mls/hr Documented by: Sodium Chloride (Normal Saline) 1,000 mls @ 125 mls/hr IV ASDIRECTED [facility] Last Admin: 09/30/20 00:05 Dose: 125 mls/hr Documented by: Cefazolin Sodium 1 gm/ Sodium (Chloride) 50 mls @ 200 mls/hr IV Q8HR [facility] Piperacillin Sod/Tazobactam (Sod 3.375 gm/ Sodium Chloride) 50 mls @ 100 mls/hr IV Q6H [facility] Last Admin: 09/30/20 06:02 Dose: 100 mls/hr Documented by: Vancomycin HCl 1.25 gm/ Sodium (Chloride) 250 mls @ 166.667 mls/hr IV BID [facility] Last Admin: 09/29/20 20:30 Dose: 166.667 mls/hr Documented by: Sterile Water (Sterile Water For Injection) Confirm Administered Dose 20 mls @ as directed .ROUTE .STK-MED ONE Stop: 09/29/20 19:53 Last Admin: 09/29/20 20:01 Dose: Not Given Documented by: Piperacillin/Tazobactam/ (Dextrose 3.375 gm/ Premix) 50 mls @ 100 mls/hr IV Q6H [facility] Last Admin: 09/30/20 13:45 Dose: 100 mls/hr Documented by: Vancomycin HCl 1.25 gm/ Sodium (Chloride) 250 mls @ 166.667 mls/hr IV Q12H [facility] Last Admin: 09/30/20 11:23 Dose: 166.667 mls/hr Documented by: Lidocaine HCl (Lidocaine 2% Jelly 10 Ml Urojet) 10 ml MUCMEM ONETIME ONE Stop: 09/30/20 19:33 Last Admin: 09/30/20 19:40 Dose: 10 ml Documented by: Propofol (Propofol 200 Mg/20 Ml Sdv) Confirm Administered Dose 200 mg .ROUTE .STK-MED ONE Stop: 09/30/20 09:34 Vancomycin HCl (Vancomycin 1 Gm Sdv) 1 gm IV .PHARMACY TO DOSE [facility] Stop: 09/30/20 07:30 - Exam Quality Assessment: Urine Catheter, DVT Prophylaxis Urinary Catheter Total Time: 0Days 11Hours General: Alert, Cooperative, Moderate Distress. No: Oriented Lungs: Clear to Auscultation, Normal Respiratory Effort Cardiovascular: Regular Rate, Regular Rhythm, No Murmurs GI/Abdominal Exam: Soft, Non-Tender, No Organomegaly, No Distention Extremities: Leg Pain - Patient Data Lab Results Last 24 hrs: Laboratory Results - last 24 hr 09/30/20 10/01/20 10/01/20 Range/Units 20:00 04:05 04:05 WBC 7.6 (4.5-11.0) K/uL RBC 2.84 L (4.30-5.90) M/uL Hgb 9.8 L (12.0-15.0) g/dL Hct 29.1 L (40.0-54.0) % MCV 103 H (80-98) fL MCH 35 H (27-31) pg MCHC 34 (32-36) % Plt Count 253 (150-400) K/uL Neut % (Auto) 78.1 H (36-66) % Lymph % (Auto) 10.8 L (24-44) % [place] % (Auto) 10.4 H (2-6) % Eos % (Auto) 0.3 L (2-4) % Baso % (Auto) 0.4 (0-1) % Sodium 130 L (140-148) mmol/L Potassium 4.4 (3.6-5.2) mmol/L Chloride 97 L (100-108) mmol/L Carbon Dioxide 24 (21-32) mmol/L Anion Gap 13.4 (5.0-14.0) mmol/L BUN 15 (7-18) mg/dL Creatinine 0.9 (0.8-1.3) mg/dL Est Cr Clr Drug Dosing 68.56 mL/min Estimated GFR (MDRD) > 60 (>60) Glucose 78 (74-106) mg/dL Calcium 8.1 L (8.5-10.1) mg/dL Phosphorus 2.1 L (2.5-4.9) mg/dL Magnesium 1.4 L (1.8-2.4) mg/dL Total Bilirubin 1.3 H D (0.2-1.0) mg/dL AST 19 (15-37) U/L ALT 20 (12-78) U/L Alkaline Phosphatase 54 (46-116) U/L NT-Pro-B Natriuret Pep 4084 H (5-450) pg/mL Total Protein 5.9 L (6.4-8.2) g/dL Albumin 2.5 L (3.4-5.0) g/dL Globulin 3.4 (2.3-3.5) g/dL Albumin/Globulin Ratio 0.7 L (1.2-2.2) Urine Color Yellow (YELLOW) Urine Appearance Clear (CLEAR) Urine pH 6.5 (5.0-8.0) Ur Specific [place] 1.020 (1.008-1.030) Urine Protein Trace H (NEGATIVE) mg/dL Urine Glucose (UA) Negative (NEGATIVE) mg/dL Urine Ketones Negative (NEGATIVE) mg/dL Urine Occult Blood Trace-intact H (NEGATIVE) Urine Nitrite Negative (NEGATIVE) Urine Bilirubin Negative (NEGATIVE) Urine Urobilinogen 0.2 (0.2-1.0) EU/dL Ur Leukocyte Esterase Negative (NEGATIVE) Urine RBC 0-5 (0-5) Urine WBC 0-5 (0-5) Ur Epithelial Cells Not seen Amorphous Sediment Not seen Urine Bacteria Not seen Urine Mucus Not seen Result Diagrams: 10/01/20 04:05 10/01/20 04:05 Sepsis Event Note - Evaluation Sepsis Screening Result: No Definite Risk - Focused Exam Vital Signs: Vital Signs Temp Pulse Pulse Resp BP BP Pulse Ox 10/01/20 11:54 24 H 10/01/20 09:07 118 H 141/89 H 10/01/20 09:05 141/89 H 10/01/20 08:32 98.1 F 111 H 20 130/66 97 - Problem List Review Problem List Initiated/Reviewed/Updated: Yes - My Orders Last 24 Hours: My Active Orders 09/30/20 15:51 Convert IV to Saline Lock [OM.PC] Routine 09/30/20 17:00 Rivaroxaban [Xarelto] 20 mg PO WITHDINNER 10/01/20 14:25 Haloperidol Lactate [Haldol] 1 mg IVPUSH Q2H PRN 10/01/20 14:26 HYDROmorphone [Dilaudid] 0.5 mg IVPUSH Q2H PRN 10/06/20 09:00 Methotrexate 10 mg PO Q7D - Plan Plan:: ASSESSMENT AND PLAN INJURY TO THE LEFT LOWER LEG WITH HEMATOMA-status post surgical debridement by Dr. Pearson, increased pain present over the past few days. He has been unable to ambulate because of the pain. Area of concern with erythema appears to be secondary to inflammation and not infection. -Xarelto on hold -Postoperative care per Dr. Pearson POSSIBLE CELLULITIS LEFT LOWER LEG-it appears less likely that this represents infection and likely is secondary to underlying inflammation HYPERACTIVE DELIRIUM-it appears at this time that agitation is more secondary to delirium than underlying pain in his leg. -Melatonin 9 mg p.o. nightly -Haldol every 2 hours as needed MAINTENANCE ISSUES -DVT prophylaxis; hold on anticoagulation because of bleeding -GI prophylaxis; not indicated -Bowser catheter; not indicated -Nutrition; regular diet, n.p.o. after midnight -Nicotine dependence; not required CODE STATUS-FULL CODE ADMISSION STATUS-patient will be admitted to inpatient status, expect at least a 2 night hospital stay for evaluation and management of problems as outlined above. At the time of this admission I do not reasonably expected evaluation and management of this problem will require more than a 96 hour hospital stay. DISPOSITION-anticipate discharge to home after the hospital stay.
[2020-10-01] MEDS: Haloperidol Lactate 5 MG/ML SDV IV PRN ×2 (16:51→23:37)
[2020-10-01] MEDS: Melatonin 3 MG Tab PO SCH (22:01)
[2020-10-02] MEDS: HYDROmorphone 0.5 MG/0.5 ML Syringe IVPUSH PRN ×5 (00:28→16:04)
[2020-10-02] MEDS: oxyCODONE 5 MG Tab PO PRN ×5 (04:08→21:14)
[2020-10-02] MEDS: Acetaminophen 325 MG Tab PO PRN ×5 (04:09→21:15)
[2020-10-02] MEDS: Haloperidol Lactate 5 MG/ML SDV IV PRN ×4 (04:11→19:51)
[2020-10-02] MEDS: Magnesium Sulfate/Water 2 GM/50 ML BAG IV SCH ×4 (04:28→21:16)
[2020-10-02] MEDS: Metoprolol Succinate 50 MG Tab.ER PO SCH (08:30)
[2020-10-02] MEDS: Aspirin 81 MG Tab.Chew PO SCH (08:30)
[2020-10-02] MEDS: Allopurinol 100 MG Tab PO SCH (08:32)
[2020-10-02] MEDS: Spironolactone 25 MG Tab PO SCH (08:33)
--- NOTE | 2020-10-02 09:13 | US ---
VL Duplex Lwr Ext Art Ltd Lt CLINICAL HISTORY: Left leg pain FINDINGS: Real-time and Doppler images were obtained from the left common femoral artery downward to the dorsal pedal and posterior tibial arteries. There is multiphasic waveforms in the common femoral and profunda femoral arteries. This changes to monophasic waveforms in the proximal SFA. No flow is identified in the mid and distal SFA. The phasic waveforms are again seen at the popliteal artery anterior tibial peroneal and posterior tibial arteries to the dorsal pedal artery. There is diminished velocity. 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
--- NOTE | 2020-10-02 12:05 | PN ---
DATE OF SERVICE: 10/02/2020 SUBJECTIVE: Son continues to report increased amount of pain. He is manipulating quite a bit with the SHABBIR drain. He was started on Flomax for urinary retention, and vital signs have been stable. Oral intake was 440 mL and urine output 2700. SHABBIR drain has put out 10. REVIEW OF SYSTEMS: Remainder of review of systems negative for any pertinent positives and negatives. OBJECTIVE: GENERAL: Son is an 80-year-old male. He is quite confused. VITAL SIGNS: TPR is 96.5, 89, and 18. Blood pressure 127/87. HEENT: Negative. NECK: Supple. HEART: Regular rate and rhythm. LUNGS: Clear. EXTREMITIES: Left leg has a knee brace on and is wrapped. SHABBIR drain has a small amount of red blood in tubing. ASSESSMENT: 1. Hematoma, left leg. 2. Urinary retention. 3. Uncontrolled pain in left leg. PLAN: 1. Discontinue Bowser catheter. 2. Discontinue SHABBIR drain. 3. Continue physical therapy. 4. We will evaluate p.r.n. or in a.m. Lynda Haque PA-C /[id number]
--- NOTE | 2020-10-02 13:09 | PCM.PN ---
- General Info Date of Service: 10/02/20 Subjective Update: Overnight the patient continued to have difficulty with pain in the left leg from the thigh all the way down to his feet. He has not been able to bear any weight. He has intermittent episodes of agitation when the pain is severe. This does seem to respond well to a combination of Haldol and pain medication. He did not have any fevers. Hemoglobin stable compared to yesterday but slightly less than admission. He did have an arterial ultrasound this morning which showed an occlusion of the SFA in the proximal segment. There was collateral suggesting this was not an acute finding. Functional Status: Denies: Pain Controlled - Review of Systems General: Reports: Weakness. Denies: Fever Musculoskeletal: Reports: Leg Pain (left ) Neurological: Reports: Confusion - Patient Data Vitals - Most Recent: Last Vital Signs Temp 35.9 C L 10/02/20 10:20 Pulse 86 10/02/20 10:20 Resp 18 10/02/20 10:20 BP 125/61 10/02/20 10:20 Pulse Ox 98 10/02/20 10:20 Weight - Most Recent: 93.903 kg I&O - Last 24 Hours: Intake & Output 10/01/20 10/02/20 10/02/20 22:59 06:59 14:59 Intake Total 800 200 290 Output Total 180 905 350 Balance -100 -705 -60 Lab Results Last 24 Hours: Laboratory Results - last 24 hr 10/02/20 10/02/20 Range/Units 04:10 04:10 WBC 6.0 (4.5-11.0) K/uL RBC 2.77 L (4.30-5.90) M/uL Hgb 9.7 L (12.0-15.0) g/dL Hct 28.0 L (40.0-54.0) % MCV 101 H (80-98) fL MCH 35 H (27-31) pg MCHC 35 (32-36) % Plt Count 277 (150-400) K/uL Neut % (Auto) 71.9 H (36-66) % Lymph % (Auto) 18.7 L (24-44) % [place] % (Auto) 8.3 H (2-6) % Eos % (Auto) 0.8 L (2-4) % Baso % (Auto) 0.3 (0-1) % Sodium 131 L (140-148) mmol/L Potassium 4.6 (3.6-5.2) mmol/L Chloride 98 L (100-108) mmol/L Carbon Dioxide 25 (21-32) mmol/L Anion Gap 12.6 (5.0-14.0) mmol/L BUN 17 (7-18) mg/dL Creatinine 0.9 (0.8-1.3) mg/dL Est Cr Clr Drug Dosing 68.56 mL/min Estimated GFR (MDRD) > 60 (>60) Glucose 100 (74-106) mg/dL Calcium 7.8 L (8.5-10.1) mg/dL Phosphorus 2.9 (2.5-4.9) mg/dL Total Bilirubin 1.2 H (0.2-1.0) mg/dL AST 49 H D (15-37) U/L ALT 37 D (12-78) U/L Alkaline Phosphatase 59 (46-116) U/L NT-Pro-B Natriuret Pep 2649 H (5-450) pg/mL Total Protein 6.0 L (6.4-8.2) g/dL Albumin 2.4 L (3.4-5.0) g/dL Globulin 3.6 H (2.3-3.5) g/dL Albumin/Globulin Ratio 0.7 L (1.2-2.2) Med Orders - Current: Current Medications Acetaminophen (Acetaminophen 325 Mg Tab) 650 mg PO Q4H PRN PRN Reason: Pain (Mild 1-3)/fever Last Admin: 10/02/20 12:26 Dose: 650 mg Documented by: Allopurinol (Allopurinol 100 Mg Tab) 200 mg PO DAILY [facility] Last Admin: 10/02/20 08:32 Dose: 200 mg Documented by: Aspirin (Aspirin 81 Mg Tab.Chew) 81 mg PO DAILY [facility] Last Admin: 10/02/20 08:30 Dose: 81 mg Documented by: Cyclobenzaprine HCl (Cyclobenzaprine 10 Mg Tab) 10 mg PO Q8H PRN PRN Reason: Spasms Last Admin: 10/01/20 02:31 Dose: 10 mg Documented by: Haloperidol Lactate (Haloperidol Lactate 5 Mg/Ml Sdv) 2 mg IV Q2H PRN PRN Reason: AGITATION Hydromorphone HCl (Hydromorphone 0.5 Mg/0.5 Ml Syringe) 0.5 mg IVPUSH Q2H PRN PRN Reason: Pain (severe 7-10) Last Admin: 10/02/20 10:03 Dose: 0.5 mg Documented by: Magnesium Sulfate (Magnesium Sulfate In Water 2 Gm/50 Ml) 2 gm in 50 mls @ 25 mls/hr IV Q6H [facility] Stop: 10/04/20 05:59 Last Admin: 10/02/20 10:54 Dose: 25 mls/hr Documented by: Lisinopril (Lisinopril 20 Mg Tab) 20 mg PO DAILY [facility] Last Admin: 10/01/20 09:05 Dose: 20 mg Documented by: Melatonin (Melatonin 3 Mg Tab) 9 mg PO BEDTIME [facility] Last Admin: 10/01/20 22:01 Dose: 9 mg Documented by: Methotrexate (Methotrexate 2.5 Mg Tab) 10 mg PO Q7D [facility] Metoprolol Succinate (Metoprolol Succinate 50 Mg Tab.Er) 50 mg PO DAILY [facility] Last Admin: 10/02/20 08:30 Dose: 50 mg Documented by: Ondansetron HCl (Ondansetron 4 Mg/2 Ml Sdv) 4 mg IV Q4H PRN PRN Reason: Nausea/Vomiting Oxycodone HCl (Oxycodone 5 Mg Tab) 5 mg PO Q4H PRN PRN Reason: Pain (moderate 4-6) Last Admin: 10/02/20 12:25 Dose: 5 mg Documented by: Polyethylene Glycol (Polyethylene Glycol 3350 Powder 17 Gm Packet) 17 gm PO DAILY PRN PRN Reason: Constipation Rivaroxaban (Rivaroxaban 10 Mg Tab) 20 mg PO WITHDINNER [facility] Sodium Chloride (Sodium Chloride 0.9% 10 Ml Syringe) 10 ml FLUSH ASDIRECTED PRN PRN Reason: Keep Vein Open Spironolactone (Spironolactone 25 Mg Tab) 25 mg PO DAILY [facility] Last Admin: 10/02/20 08:33 Dose: 25 mg Documented by: Tamsulosin HCl (Tamsulosin 0.4 Mg Cap.Er) 0.4 mg PO BEDTIME [facility] Last Admin: 10/01/20 21:59 Dose: 0.4 mg Documented by: Discontinued Medications Fentanyl (Fentanyl 100 Mcg/2 Ml Sdv) Confirm Administered Dose 100 mcg .ROUTE .STK-MED ONE Stop: 09/30/20 09:34 Furosemide (Furosemide 20 Mg/2 Ml Vial) 20 mg IV ONETIME ONE Stop: 10/01/20 10:01 Last Admin: 10/01/20 10:26 Dose: 20 mg Documented by: Haloperidol Lactate (Haloperidol Lactate 5 Mg/Ml Sdv) 1 mg IV Q2H PRN PRN Reason: AGITATION Last Admin: 10/02/20 09:28 Dose: 1 mg Documented by: Hydromorphone HCl (Hydromorphone 0.5 Mg/0.5 Ml Syringe) 0.5 mg IVPUSH Q2H PRN PRN Reason: Pain (severe 7-10) Last Admin: 09/30/20 11:15 Dose: 0.5 mg Documented by: Hydromorphone HCl (Hydromorphone 0.5 Mg/0.5 Ml Syringe) 0.5 - 1 mg IVPUSH Q1H PRN PRN Reason: Pain (severe 7-10) Last Admin: 10/01/20 09:53 Dose: 1 mg Documented by: Cefazolin Sodium 1 gm/ Sodium (Chloride) 50 mls @ 100 mls/hr IV ONETIME ONE Stop: 09/29/20 17:32 Last Admin: 09/29/20 17:25 Dose: 100 mls/hr Documented by: Sodium Chloride (Normal Saline) 1,000 mls @ 250 mls/hr IV ASDIRECTED [facility] Last Admin: 09/29/20 17:20 Dose: 250 mls/hr Documented by: Sodium Chloride (Normal Saline) 1,000 mls @ 125 mls/hr IV ASDIRECTED [facility] Last Admin: 09/30/20 00:05 Dose: 125 mls/hr Documented by: Cefazolin Sodium 1 gm/ Sodium (Chloride) 50 mls @ 200 mls/hr IV Q8HR [facility] Piperacillin Sod/Tazobactam (Sod 3.375 gm/ Sodium Chloride) 50 mls @ 100 mls/hr IV Q6H [facility] Last Admin: 09/30/20 06:02 Dose: 100 mls/hr Documented by: Vancomycin HCl 1.25 gm/ Sodium (Chloride) 250 mls @ 166.667 mls/hr IV BID [facility] Last Admin: 09/29/20 20:30 Dose: 166.667 mls/hr Documented by: Sterile Water (Sterile Water For Injection) Confirm Administered Dose 20 mls @ as directed .ROUTE .STK-MED ONE Stop: 09/29/20 19:53 Last Admin: 09/29/20 20:01 Dose: Not Given Documented by: Piperacillin/Tazobactam/ (Dextrose 3.375 gm/ Premix) 50 mls @ 100 mls/hr IV Q6H [facility] Last Admin: 09/30/20 13:45 Dose: 100 mls/hr Documented by: Vancomycin HCl 1.25 gm/ Sodium (Chloride) 250 mls @ 166.667 mls/hr IV Q12H [facility] Last Admin: 09/30/20 11:23 Dose: 166.667 mls/hr Documented by: Potassium Phosphate 15 mmol/ (Premix) 250 mls @ 84 mls/hr IV Q3H [facility] Stop: 10/01/20 20:59 Last Admin: 10/01/20 19:06 Dose: 84 mls/hr Documented by: Sodium Chloride (Normal Saline) 500 mls @ 500 mls/hr IV ONETIME ONE Stop: 10/01/20 16:59 Last Admin: 10/01/20 16:53 Dose: 500 mls/hr Documented by: Lidocaine HCl (Lidocaine 2% Jelly 10 Ml Urojet) 10 ml MUCMEM ONETIME ONE Stop: 09/30/20 19:33 Last Admin: 09/30/20 19:40 Dose: 10 ml Documented by: Melatonin (Melatonin 3 Mg Tab) 3 mg PO BEDTIME [facility] Last Admin: 09/30/20 20:52 Dose: 3 mg Documented by: Propofol (Propofol 200 Mg/20 Ml Sdv) Confirm Administered Dose 200 mg .ROUTE .STK-MED ONE Stop: 09/30/20 09:34 Vancomycin HCl (Vancomycin 1 Gm Sdv) 1 gm IV .PHARMACY TO DOSE [facility] Stop: 09/30/20 07:30 - Exam Quality Assessment: No: Supplemental Oxygen Urinary Catheter Total Time: 1Days 3Hours General: Alert, Cooperative, Mild Distress. No: Oriented Lungs: Normal Respiratory Effort. No: Wheezing Cardiovascular: Regular Rate, Irregular Rhythm GI/Abdominal Exam: Soft, No Distention Extremities: No Pedal Edema (on the right ), Pedal Edema (left ), Other (left leg wrapped with quinn and immobilizer from foot to above the knee ) Skin: Warm, Dry, Ecchymosis (noted above the knee immobilizer ) Psy/Mental Status: Alert, Normal Affect. No: Agitated - Patient Data Lab Results Last 24 hrs: Laboratory Results - last 24 hr 10/02/20 10/02/20 Range/Units 04:10 04:10 WBC 6.0 (4.5-11.0) K/uL RBC 2.77 L (4.30-5.90) M/uL Hgb 9.7 L (12.0-15.0) g/dL Hct 28.0 L (40.0-54.0) % MCV 101 H (80-98) fL MCH 35 H (27-31) pg MCHC 35 (32-36) % Plt Count 277 (150-400) K/uL Neut % (Auto) 71.9 H (36-66) % Lymph % (Auto) 18.7 L (24-44) % [place] % (Auto) 8.3 H (2-6) % Eos % (Auto) 0.8 L (2-4) % Baso % (Auto) 0.3 (0-1) % Sodium 131 L (140-148) mmol/L Potassium 4.6 (3.6-5.2) mmol/L Chloride 98 L (100-108) mmol/L Carbon Dioxide 25 (21-32) mmol/L Anion Gap 12.6 (5.0-14.0) mmol/L BUN 17 (7-18) mg/dL Creatinine 0.9 (0.8-1.3) mg/dL Est Cr Clr Drug Dosing 68.56 mL/min Estimated GFR (MDRD) > 60 (>60) Glucose 100 (74-106) mg/dL Calcium 7.8 L (8.5-10.1) mg/dL Phosphorus 2.9 (2.5-4.9) mg/dL Total Bilirubin 1.2 H (0.2-1.0) mg/dL AST 49 H D (15-37) U/L ALT 37 D (12-78) U/L Alkaline Phosphatase 59 (46-116) U/L NT-Pro-B Natriuret Pep 2649 H (5-450) pg/mL Total Protein 6.0 L (6.4-8.2) g/dL Albumin 2.4 L (3.4-5.0) g/dL Globulin 3.6 H (2.3-3.5) g/dL Albumin/Globulin Ratio 0.7 L (1.2-2.2) Result Diagrams: 10/02/20 04:10 10/02/20 04:10 Sepsis Event Note - Evaluation Sepsis Screening Result: No Definite Risk - Focused Exam Vital Signs: Vital Signs Temp Pulse Pulse Resp BP BP Pulse Ox 10/02/20 10:20 35.9 C L 86 18 125/61 98 10/02/20 09:02 35.8 C L 89 18 127/87 94 L 10/02/20 08:30 89 115/70 10/02/20 04:17 36.4 C 93 18 114/93 H 98 - Problem List Review Problem List Initiated/Reviewed/Updated: Yes - My Orders Last 24 Hours: My Active Orders 10/02/20 11:08 Head wo Cont [CT] Routine Hip Min 2V or 3V Lt [CR] Routine Knee 3V Lt [CR] Routine 10/02/20 11:10 Haloperidol Lactate [Haldol] 2 mg IV Q2H PRN - Plan Plan:: ASSESSMENT AND PLAN - INJURY TO THE LEFT LOWER LEG WITH HEMATOMA-status post surgical debridement by Dr. Pearson, increased pain present over the past few days. Unable to bear weight. X-rays today show a displaced patella but unclear if this is related to dislocation or tendon rupture. He has significant bruising extending from his toes all the way up onto the thigh. -Symptomatic management of pain -Orthopedic consultation -Postoperative care per Dr. Pearson -Hold rivaroxaban POSSIBLE CELLULITIS LEFT LOWER LEG-suspect inflammation rather than infection. HYPERACTIVE DELIRIUM-it appears at this time that agitation is more secondary to delirium than underlying pain in his leg. -Melatonin 9 mg p.o. nightly -Haldol every 2 hours as needed Chronic atrial fibrillation-rate controlled at this time. -Continue metoprolol -Hold rivaroxaban MAINTENANCE ISSUES -DVT prophylaxis; hold on anticoagulation because of bleeding -GI prophylaxis; not indicated -Bowser catheter; not indicated -Nutrition; regular diet DISPOSITION-anticipate discharge to home after the hospital stay. Edgar Muse MD
--- NOTE | 2020-10-02 13:36 | PN ---
DATE OF SERVICE: 10/01/2020 The patient overall looks little bit more comfortable. He was noted to retain urine overnight and then a Bowser catheter placed and that certainly helped him. We will add some Flomax to his medical regimen today, and try getting the bladder catheter out tomorrow. Otherwise, magnesium and phosphate are both low, those will be supplemented. We will leave the ankle boot and knee immobilizer on for today, and those will probably be removed periodically for issues such as getting arterial duplex scan tomorrow and for physical therapy. His BNP is quite high and with some underlying congestive heart failure type history, we will give him some IV Lasix this morning. Quinton Pearson MD /[id number]
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
--- NOTE | 2020-10-02 14:10 | CR ---
Knee 3V Lt, Hip Min 2V or 3V Lt CLINICAL HISTORY: Knee pain FINDINGS: No acute fracture or dislocation is noted. There are no osseous lesions. There is medial joint space narrowing and periarticular spurring. High right patella is felt to be due to extended leg position. Impression: Moderate osteoarthritis No fracture seen Hip Min 2V or 3V Lt CLINICAL HISTORY: Pain FINDINGS: Joint space is fairly well-maintained. There is mild acetabular spurring. No fracture or osseous lesion is identified. Impression: Mild osteoarthritic change No fracture.
[2020-10-02] MEDS: Cyclobenzaprine 10 MG Tab PO PRN (14:18)
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
[2020-10-02] MEDS: Melatonin 3 MG Tab PO SCH (20:10)
[2020-10-02] MEDS: Tamsulosin 0.4 MG Cap.ER PO SCH (20:11)
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
[2020-10-03] MEDS: Haloperidol Lactate 5 MG/ML SDV IV PRN ×3 (01:18→11:00)
[2020-10-03] MEDS: HYDROmorphone 0.5 MG/0.5 ML Syringe IVPUSH PRN ×2 (01:19→11:16)
[2020-10-03] MEDS: Cyclobenzaprine 10 MG Tab PO PRN (01:28)
[2020-10-03] MEDS: Magnesium Sulfate/Water 2 GM/50 ML BAG IV SCH (03:29)
[2020-10-03] MEDS: oxyCODONE 5 MG Tab PO PRN (05:28)
[2020-10-03] MEDS: Acetaminophen 325 MG Tab PO PRN (05:28)
[2020-10-03] MEDS ORDERED: tiZANidine 4 MG Tab PO PRN (07:55)
[2020-10-03] MEDS ORDERED: Acetaminophen/HYDROcodone 325-5 MG Tab PO PRN ×2 (08:09→08:11)
[2020-10-03] MEDS: Metoprolol Succinate 50 MG Tab.ER PO SCH (08:32)
[2020-10-03] MEDS: Aspirin 81 MG Tab.Chew PO SCH (08:33)
[2020-10-03] MEDS: Allopurinol 100 MG Tab PO SCH (08:33)
[2020-10-03] MEDS: Spironolactone 25 MG Tab PO SCH (08:33)
--- NOTE | 2020-10-03 09:05 | CR ---
Tibia Fibula Lt CLINICAL HISTORY: Bowing of distal lower extremity FINDINGS: There is significant deformity at the talus with likely partial resection. There is dense calcification in the Achilles tendon which is likely related to previous Achilles injury. There is severe deformity of the tarsal bones and significant pes planus there is some anterior bowing of the fibula and tibia. IMPRESSION: Significant deformity at the ankle with probable talar resection. There is severe pes planus Dense calcification in the Achilles tendon likely related to remote injury Anterior and some medial bowing of the tib-fib
--- NOTE | 2020-10-03 11:41 | PN ---
DATE OF SERVICE: 10/03/2020 SUBJECTIVE: Horacio has been very confused and restless during the night. Vital signs have been stable. Oral intake 840. Urine output 1200. SHABBIR drain put out 10 mL but was discontinued. REVIEW OF SYSTEMS: Remainder of review of systems negative for any pertinent positives and negatives. OBJECTIVE: GENERAL: Horacio is an 80-year-old male, extremely confused. VITAL SIGNS: TPR 97.3, 101, 18, and blood pressure 140/79. HEART: Regular rate and rhythm. LUNGS: Clear. EXTREMITIES: There is a soft fiberglass cast of left lower leg. ASSESSMENT: 1. Ischemia of left leg, status post evacuation of hematoma of left leg. 2. Urinary retention. 3. Uncontrolled pain of left leg, resolving. PLAN: Continue physical therapy and discussion regarding home rehabilitation or home health care. Lynda Haque PA-C /[id number]
--- NOTE | 2020-10-03 11:46 | PCM.PN ---
- General Info Date of Service: 10/03/20 Subjective Update: Overnight the patient has continued to experience difficulty with pain and agitation. History is difficult to gather because of his confusion. A variety of medications have been tried without much in the way of relief. He continues to have a hyperactive delirium with mild intermittent agitation. He was able to bear weight with the assist of 2 this morning which was an improvement. He was evaluated by orthopedics last night and their input is appreciated. He now has a splint on the left lower leg. Swelling of the leg is better today. His vital signs have been stable. There is no evidence for infection that I can find. Hemoglobin is stable. Functional Status: Denies: Pain Controlled - Review of Systems General: Reports: Weakness. Denies: Fever Musculoskeletal: Reports: Leg Pain Psychiatric: Reports: Confusion - Patient Data Vitals - Most Recent: Last Vital Signs Temp 36.2 C 10/03/20 09:00 Pulse 64 10/03/20 09:00 Resp 16 10/03/20 09:00 BP 117/42 L 10/03/20 09:00 Pulse Ox 93 L 10/03/20 08:14 Weight - Most Recent: 94.8 kg I&O - Last 24 Hours: Intake & Output 10/02/20 10/03/20 10/03/20 22:59 06:59 14:59 Intake Total 650 Output Total 250 950 350 Balance -250 -300 -350 Med Orders - Current: Current Medications Acetaminophen (Acetaminophen 500 Mg Tab) 1,000 mg PO TID [facility] Hydrocodone Bitart/Acetaminophen (Acetaminophen/Hydrocodone 325-5 Mg Tab) 1 - 2 tab PO Q4H PRN PRN Reason: Pain Allopurinol (Allopurinol 100 Mg Tab) 200 mg PO DAILY [facility] Last Admin: 10/03/20 08:33 Dose: 200 mg Documented by: Aspirin (Aspirin 81 Mg Tab.Chew) 81 mg PO DAILY [facility] Last Admin: 10/03/20 08:33 Dose: 81 mg Documented by: Gabapentin (Gabapentin 300 Mg Cap) 300 mg PO TID [facility] Haloperidol Lactate (Haloperidol Lactate 5 Mg/Ml Sdv) 2 mg IV Q2H PRN PRN Reason: AGITATION Last Admin: 10/03/20 11:00 Dose: 2 mg Documented by: Hydromorphone HCl (Hydromorphone 0.5 Mg/0.5 Ml Syringe) 0.5 mg IVPUSH Q2H PRN PRN Reason: Breakthrough Pain Last Admin: 10/03/20 11:16 Dose: 0.5 mg Documented by: Lisinopril (Lisinopril 20 Mg Tab) 20 mg PO DAILY [facility] Last Admin: 10/01/20 09:05 Dose: 20 mg Documented by: Melatonin (Melatonin 3 Mg Tab) 9 mg PO BEDTIME [facility] Last Admin: 10/02/20 20:10 Dose: 9 mg Documented by: Methotrexate (Methotrexate 2.5 Mg Tab) 10 mg PO Q7D [facility] Metoprolol Succinate (Metoprolol Succinate 50 Mg Tab.Er) 50 mg PO DAILY [facility] Last Admin: 10/03/20 08:32 Dose: 50 mg Documented by: Ondansetron HCl (Ondansetron 4 Mg/2 Ml Sdv) 4 mg IV Q4H PRN PRN Reason: Nausea/Vomiting Polyethylene Glycol (Polyethylene Glycol 3350 Powder 17 Gm Packet) 17 gm PO DAILY PRN PRN Reason: Constipation Rivaroxaban (Rivaroxaban 10 Mg Tab) 20 mg PO WITHRENITA [facility] Sodium Chloride (Sodium Chloride 0.9% 10 Ml Syringe) 10 ml FLUSH ASDIRECTED PRN PRN Reason: Keep Vein Open Spironolactone (Spironolactone 25 Mg Tab) 25 mg PO DAILY [facility] Last Admin: 10/03/20 08:33 Dose: 25 mg Documented by: Tamsulosin HCl (Tamsulosin 0.4 Mg Cap.Er) 0.4 mg PO BEDTIME [facility] Last Admin: 10/02/20 20:11 Dose: 0.4 mg Documented by: Tizanidine HCl (Tizanidine 2 Mg Tab) 1 mg PO Q6H PRN PRN Reason: Muscle Spasm - Painful Discontinued Medications Acetaminophen (Acetaminophen 325 Mg Tab) 650 mg PO Q4H PRN PRN Reason: Pain (Mild 1-3)/fever Last Admin: 10/03/20 05:28 Dose: 650 mg Documented by: Hydrocodone Bitart/Acetaminophen (Acetaminophen/Hydrocodone 325-5 Mg Tab) 1 tab PO Q4H PRN PRN Reason: Pain Cyclobenzaprine HCl (Cyclobenzaprine 10 Mg Tab) 10 mg PO Q8H PRN PRN Reason: Spasms Last Admin: 10/03/20 01:28 Dose: 10 mg Documented by: Fentanyl (Fentanyl 100 Mcg/2 Ml Sdv) Confirm Administered Dose 100 mcg .ROUTE .STK-MED ONE Stop: 09/30/20 09:34 Furosemide (Furosemide 20 Mg/2 Ml Vial) 20 mg IV ONETIME ONE Stop: 10/01/20 10:01 Last Admin: 10/01/20 10:26 Dose: 20 mg Documented by: Haloperidol Lactate (Haloperidol Lactate 5 Mg/Ml Sdv) 1 mg IV Q2H PRN PRN Reason: AGITATION Last Admin: 10/02/20 09:28 Dose: 1 mg Documented by: Hydromorphone HCl (Hydromorphone 0.5 Mg/0.5 Ml Syringe) 0.5 mg IVPUSH Q2H PRN PRN Reason: Pain (severe 7-10) Last Admin: 09/30/20 11:15 Dose: 0.5 mg Documented by: Hydromorphone HCl (Hydromorphone 0.5 Mg/0.5 Ml Syringe) 0.5 - 1 mg IVPUSH Q1H PRN PRN Reason: Pain (severe 7-10) Last Admin: 10/01/20 09:53 Dose: 1 mg Documented by: Cefazolin Sodium 1 gm/ Sodium (Chloride) 50 mls @ 100 mls/hr IV ONETIME ONE Stop: 09/29/20 17:32 Last Admin: 09/29/20 17:25 Dose: 100 mls/hr Documented by: Sodium Chloride (Normal Saline) 1,000 mls @ 250 mls/hr IV ASDIRECTED [facility] Last Admin: 09/29/20 17:20 Dose: 250 mls/hr Documented by: Sodium Chloride (Normal Saline) 1,000 mls @ 125 mls/hr IV ASDIRECTED [facility] Last Admin: 09/30/20 00:05 Dose: 125 mls/hr Documented by: Cefazolin Sodium 1 gm/ Sodium (Chloride) 50 mls @ 200 mls/hr IV Q8HR ОЛЬГА Piperacillin Sod/Tazobactam (Sod 3.375 gm/ Sodium Chloride) 50 mls @ 100 mls/hr IV Q6H [facility] Last Admin: 09/30/20 06:02 Dose: 100 mls/hr Documented by: Vancomycin HCl 1.25 gm/ Sodium (Chloride) 250 mls @ 166.667 mls/hr IV BID [facility] Last Admin: 09/29/20 20:30 Dose: 166.667 mls/hr Documented by: Sterile Water (Sterile Water For Injection) Confirm Administered Dose 20 mls @ as directed .ROUTE .STK-MED ONE Stop: 09/29/20 19:53 Last Admin: 09/29/20 20:01 Dose: Not Given Documented by: Piperacillin/Tazobactam/ (Dextrose 3.375 gm/ Premix) 50 mls @ 100 mls/hr IV Q6H [facility] Last Admin: 09/30/20 13:45 Dose: 100 mls/hr Documented by: Vancomycin HCl 1.25 gm/ Sodium (Chloride) 250 mls @ 166.667 mls/hr IV Q12H [facility] Last Admin: 09/30/20 11:23 Dose: 166.667 mls/hr Documented by: Magnesium Sulfate (Magnesium Sulfate In Water 2 Gm/50 Ml) 2 gm in 50 mls @ 25 mls/hr IV Q6H [facility] Stop: 10/04/20 05:59 Last Admin: 10/03/20 03:29 Dose: 25 mls/hr Documented by: Potassium Phosphate 15 mmol/ (Premix) 250 mls @ 84 mls/hr IV Q3H ОЛЬГА Stop: 10/01/20 20:59 Last Admin: 10/01/20 19:06 Dose: 84 mls/hr Documented by: Sodium Chloride (Normal Saline) 500 mls @ 500 mls/hr IV ONETIME ONE Stop: 10/01/20 16:59 Last Admin: 10/01/20 16:53 Dose: 500 mls/hr Documented by: Lidocaine HCl (Lidocaine 2% Jelly 10 Ml Urojet) 10 ml MUCMEM ONETIME ONE Stop: 09/30/20 19:33 Last Admin: 09/30/20 19:40 Dose: 10 ml Documented by: Melatonin (Melatonin 3 Mg Tab) 3 mg PO BEDTIME [facility] Last Admin: 09/30/20 20:52 Dose: 3 mg Documented by: Oxycodone HCl (Oxycodone 5 Mg Tab) 5 mg PO Q4H PRN PRN Reason: Pain (moderate 4-6) Last Admin: 10/03/20 05:28 Dose: 5 mg Documented by: Propofol (Propofol 200 Mg/20 Ml Sdv) Confirm Administered Dose 200 mg .ROUTE .STK-MED ONE Stop: 09/30/20 09:34 Tizanidine HCl (Tizanidine 4 Mg Tab) 2 mg PO Q6H PRN PRN Reason: Muscle Spasm - Painful Last Admin: 10/03/20 08:27 Dose: 2 mg Documented by: Vancomycin HCl (Vancomycin 1 Gm Sdv) 1 gm IV .PHARMACY TO DOSE ОЛЬГА Stop: 09/30/20 07:30 - Exam Quality Assessment: No: Supplemental Oxygen Urinary Catheter Total Time: 1Days 3Hours General: Alert, Cooperative, Mild Distress. No: Oriented HEENT: Pupils Equal Lungs: Normal Respiratory Effort GI/Abdominal Exam: Soft, No Distention Extremities: No Pedal Edema, Other (left leg wrapped with Anibal to knee over splint ) Skin: Warm, Dry, Ecchymosis (right proximal medial thigh ) Psy/Mental Status: Alert, Agitated - Patient Data Result Diagrams: 10/02/20 04:10 10/02/20 04:10 Sepsis Event Note - Evaluation Sepsis Screening Result: No Definite Risk - Focused Exam Vital Signs: Vital Signs Temp Pulse Pulse Resp BP BP Pulse Ox 10/03/20 09:00 36.2 C 64 16 117/42 L 10/03/20 08:32 101 H 140/79 10/03/20 08:14 36.3 C 101 H 18 140/79 93 L 10/03/20 02:47 35.5 C L 60 16 133/50 L 93 L - Problem List Review Problem List Initiated/Reviewed/Updated: Yes - My Orders Last 24 Hours: My Active Orders 10/02/20 11:10 Haloperidol Lactate [Haldol] 2 mg IV Q2H PRN 10/02/20 14:00 Consult to Physician [CONS] Routine 10/02/20 14:01 Notify Provider Consults [RC] ASDIRECTED 10/03/20 10:26 tiZANidine [Zanaflex] 1 mg PO Q6H PRN 10/03/20 14:00 Acetaminophen [Tylenol Extra Strength] 1,000 mg PO TID Gabapentin [Neurontin] 300 mg PO TID 10/04/20 05:00 CBC W/O DIFF,HEMOGRAM [HEME] Timed (1) COMPREHENSIVE METABOLIC PN,CMP [CHEM] Timed - Plan Plan:: ASSESSMENT AND PLAN - INJURY TO THE LEFT LOWER LEG WITH HEMATOMA-status post surgical debridement by Dr. Pearson. Difficulty with pain control and concerned that his pain medications are leading to the hyperactive delirium. -Symptomatic management of pain -Orthopedic consultation -Postoperative care per Dr. Pearson -Continue splint and Anibal wrap to the left lower extremity HYPERACTIVE DELIRIUM-ongoing agitation. Appears to be having some muscle spasms. At this point I suspect he is having agitation related to pain medications which were adjusted yesterday and further adjusted today. Haldol seems to help temporarily. Head CT was unremarkable. Patient does drink about 2 ounces of alcohol per night but this does not seem to be enough to cause alcohol withdrawal. -Melatonin 9 mg p.o. nightly -Haldol every 2 hours as needed -Trial of gabapentin this afternoon -Consider Depakote Peripheral vascular disease-occlusion of the left proximal superficial femoral artery noted with ultrasound. There was some collateral flow noted with reconstitution of the popliteal artery though monophasic waveforms were noted there. This was discussed with vascular surgery at [place] in [place]. They did not feel there was an urgent need for intervention at this time and recommended medical management and outpatient follow-up. Chronic atrial fibrillation-rate controlled at this time. -Continue metoprolol -Rivaroxaban on hold MAINTENANCE ISSUES -DVT prophylaxis; unable to use pharmacological means because of recent bleeding and hematoma -GI prophylaxis; not indicated -Bowser catheter; not indicated -Nutrition; regular diet DISPOSITION-anticipate discharge to home after the hospital stay. Edgar Muse MD
[2020-10-03] MEDS: Acetaminophen 500 MG Tab PO SCH ×3 (12:34→20:26)
[2020-10-03] MEDS: Gabapentin 300 MG Cap PO SCH ×2 (12:34→14:21)
[2020-10-03] MEDS ORDERED: Ketorolac 30 MG/ML SDV IVPUSH ONE (12:45)
--- NOTE | 2020-10-03 15:16 | PCM.CONSN ---
- General Info Date of Service: 10/03/20 Functional Status: Reports: Pain Controlled - Review of Systems Musculoskeletal: Reports: Leg Pain (distal LLE ), Joint Pain (L ankle,), Joint Swelling (L knee, L calf) Skin: Reports: Bruising Neurological: Reports: Confusion Psychiatric: Reports: Confusion - Patient Data Vitals - Most Recent: Last Vital Signs Temp 97.1 F 10/03/20 09:00 Pulse 64 10/03/20 09:00 Resp 16 10/03/20 09:00 BP 117/42 L 10/03/20 09:00 Pulse Ox 93 L 10/03/20 08:14 Weight - Most Recent: 208 lb 15.971 oz I&O - Last 24 Hours: Intake & Output 10/03/20 10/03/20 10/03/20 06:59 14:59 22:59 Intake Total 650 Output Total 950 350 Balance -300 -350 Med Orders - Current: Current Medications Acetaminophen (Acetaminophen 500 Mg Tab) 1,000 mg PO TID [facility] Last Admin: 10/03/20 14:21 Dose: Not Given Documented by: Hydrocodone Bitart/Acetaminophen (Acetaminophen/Hydrocodone 325-5 Mg Tab) 1 - 2 tab PO Q4H PRN PRN Reason: Pain Allopurinol (Allopurinol 100 Mg Tab) 200 mg PO DAILY [facility] Last Admin: 10/03/20 08:33 Dose: 200 mg Documented by: Aspirin (Aspirin 81 Mg Tab.Chew) 81 mg PO DAILY [facility] Last Admin: 10/03/20 08:33 Dose: 81 mg Documented by: Gabapentin (Gabapentin 300 Mg Cap) 300 mg PO TID [facility] Last Admin: 10/03/20 14:21 Dose: Not Given Documented by: Haloperidol Lactate (Haloperidol Lactate 5 Mg/Ml Sdv) 2 mg IV Q2H PRN PRN Reason: AGITATION Last Admin: 10/03/20 11:00 Dose: 2 mg Documented by: Hydromorphone HCl (Hydromorphone 0.5 Mg/0.5 Ml Syringe) 0.5 mg IVPUSH Q2H PRN PRN Reason: Breakthrough Pain Last Admin: 10/03/20 11:16 Dose: 0.5 mg Documented by: Lisinopril (Lisinopril 20 Mg Tab) 20 mg PO DAILY [facility] Last Admin: 10/01/20 09:05 Dose: 20 mg Documented by: Melatonin (Melatonin 3 Mg Tab) 9 mg PO BEDTIME [facility] Last Admin: 10/02/20 20:10 Dose: 9 mg Documented by: Methotrexate (Methotrexate 2.5 Mg Tab) 10 mg PO Q7D [facility] Metoprolol Succinate (Metoprolol Succinate 50 Mg Tab.Er) 50 mg PO DAILY [facility] Last Admin: 10/03/20 08:32 Dose: 50 mg Documented by: Ondansetron HCl (Ondansetron 4 Mg/2 Ml Sdv) 4 mg IV Q4H PRN PRN Reason: Nausea/Vomiting Polyethylene Glycol (Polyethylene Glycol 3350 Powder 17 Gm Packet) 17 gm PO DAILY PRN PRN Reason: Constipation Rivaroxaban ([facility] 10 Mg Tab) [facility] Sodium Chloride (Sodium Chloride 0.9% 10 Ml Syringe) 10 ml FLUSH ASDIRECTED PRN PRN Reason: Keep Vein Open Spironolactone (Spironolactone 25 Mg Tab) 25 mg PO DAILY [facility] Last Admin: 10/03/20 08:33 Dose: 25 mg Documented by: Tamsulosin HCl (Tamsulosin 0.4 Mg Cap.Er) 0.4 mg PO BEDTIME [facility] Last Admin: 10/02/20 20:11 Dose: 0.4 mg Documented by: Tizanidine HCl (Tizanidine 2 Mg Tab) 1 mg PO Q6H PRN PRN Reason: Muscle Spasm - Painful Discontinued Medications Acetaminophen (Acetaminophen 325 Mg Tab) 650 mg PO Q4H PRN PRN Reason: Pain (Mild 1-3)/fever Last Admin: 10/03/20 05:28 Dose: 650 mg Documented by: Hydrocodone Bitart/Acetaminophen (Acetaminophen/Hydrocodone 325-5 Mg Tab) 1 tab PO Q4H PRN PRN Reason: Pain Cyclobenzaprine HCl (Cyclobenzaprine 10 Mg Tab) 10 mg PO Q8H PRN PRN Reason: Spasms Last Admin: 10/03/20 01:28 Dose: 10 mg Documented by: Fentanyl (Fentanyl 100 Mcg/2 Ml Sdv) Confirm Administered Dose 100 mcg .ROUTE .STK-MED ONE Stop: 09/30/20 09:34 Furosemide (Furosemide 20 Mg/2 Ml Vial) 20 mg IV ONETIME ONE Stop: 10/01/20 10:01 Last Admin: 10/01/20 10:26 Dose: 20 mg Documented by: Haloperidol Lactate (Haloperidol Lactate 5 Mg/Ml Sdv) 1 mg IV Q2H PRN PRN Reason: AGITATION Last Admin: 10/02/20 09:28 Dose: 1 mg Documented by: Hydromorphone HCl (Hydromorphone 0.5 Mg/0.5 Ml Syringe) 0.5 mg IVPUSH Q2H PRN PRN Reason: Pain (severe 7-10) Last Admin: 09/30/20 11:15 Dose: 0.5 mg Documented by: Hydromorphone HCl (Hydromorphone 0.5 Mg/0.5 Ml Syringe) 0.5 - 1 mg IVPUSH Q1H PRN PRN Reason: Pain (severe 7-10) Last Admin: 10/01/20 09:53 Dose: 1 mg Documented by: Cefazolin Sodium 1 gm/ Sodium (Chloride) 50 mls @ 100 mls/hr IV ONETIME ONE Stop: 09/29/20 17:32 Last Admin: 09/29/20 17:25 Dose: 100 mls/hr Documented by: Sodium Chloride (Normal Saline) 1,000 mls @ 250 mls/hr IV ASDIRECTED [facility] Last Admin: 09/29/20 17:20 Dose: 250 mls/hr Documented by: Sodium Chloride (Normal Saline) 1,000 mls @ 125 mls/hr IV ASDIRECTED [facility] Last Admin: 09/30/20 00:05 Dose: 125 mls/hr Documented by: Cefazolin Sodium 1 gm/ Sodium (Chloride) 50 mls @ 200 mls/hr IV Q8HR [facility] Piperacillin Sod/Tazobactam (Sod 3.375 gm/ Sodium Chloride) 50 mls @ 100 mls/hr IV Q6H [facility] Last Admin: 09/30/20 06:02 Dose: 100 mls/hr Documented by: Vancomycin HCl 1.25 gm/ Sodium (Chloride) 250 mls @ 166.667 mls/hr IV BID [facility] Last Admin: 09/29/20 20:30 Dose: 166.667 mls/hr Documented by: Sterile Water (Sterile Water For Injection) Confirm Administered Dose 20 mls @ as directed .ROUTE .STK-MED ONE Stop: 09/29/20 19:53 Last Admin: 09/29/20 20:01 Dose: Not Given Documented by: Piperacillin/Tazobactam/ (Dextrose 3.375 gm/ Premix) 50 mls @ 100 mls/hr IV Q6H [facility] Last Admin: 09/30/20 13:45 Dose: 100 mls/hr Documented by: Vancomycin HCl 1.25 gm/ Sodium (Chloride) 250 mls @ 166.667 mls/hr IV Q12H [facility] Last Admin: 09/30/20 11:23 Dose: 166.667 mls/hr Documented by: Magnesium Sulfate (Magnesium Sulfate In Water 2 Gm/50 Ml) 2 gm in 50 mls @ 25 mls/hr IV Q6H [facility] Stop: 10/04/20 05:59 Last Admin: 10/03/20 03:29 Dose: 25 mls/hr Documented by: Potassium Phosphate 15 mmol/ (Premix) 250 mls @ 84 mls/hr IV Q3H [facility] Stop: 10/01/20 20:59 Last Admin: 10/01/20 19:06 Dose: 84 mls/hr Documented by: Sodium Chloride (Normal Saline) 500 mls @ 500 mls/hr IV ONETIME ONE Stop: 10/01/20 16:59 Last Admin: 10/01/20 16:53 Dose: 500 mls/hr Documented by: Ketorolac Tromethamine (Ketorolac 30 Mg/Ml Sdv) 30 mg IVPUSH ONETIME ONE Stop: 10/03/20 12:46 Last Admin: 10/03/20 13:07 Dose: 30 mg Documented by: Lidocaine HCl (Lidocaine 2% Jelly 10 Ml Urojet) 10 ml MUCMEM ONETIME ONE Stop: 09/30/20 19:33 Last Admin: 09/30/20 19:40 Dose: 10 ml Documented by: Melatonin (Melatonin 3 Mg Tab) 3 mg PO BEDTIME [facility] Last Admin: 09/30/20 20:52 Dose: 3 mg Documented by: Oxycodone HCl (Oxycodone 5 Mg Tab) 5 mg PO Q4H PRN PRN Reason: Pain (moderate 4-6) Last Admin: 10/03/20 05:28 Dose: 5 mg Documented by: Propofol (Propofol 200 Mg/20 Ml Sdv) Confirm Administered Dose 200 mg .ROUTE .STK-MED ONE Stop: 09/30/20 09:34 Tizanidine HCl (Tizanidine 4 Mg Tab) 2 mg PO Q6H PRN PRN Reason: Muscle Spasm - Painful Last Admin: 10/03/20 08:27 Dose: 2 mg Documented by: Vancomycin HCl (Vancomycin 1 Gm Sdv) 1 gm IV .PHARMACY TO DOSE [facility] Stop: 09/30/20 07:30 - Exam Urinary Catheter Total Time: 1Days 3Hours General: Mild Distress Extremities: Pedal Edema, Joint Swelling, Leg Pain, Limited Range of Motion, Redness Wound/Incisions: Erythema Sepsis Event Note - Evaluation Sepsis Screening Result: No Definite Risk - Focused Exam Vital Signs: Vital Signs Temp Pulse Pulse Resp BP BP Pulse Ox 10/03/20 09:00 97.1 F 64 16 117/42 L 10/03/20 08:32 101 H 140/79 10/03/20 08:14 97.3 F 101 H 18 140/79 93 L Consult PN Assessment/Plan Procedures: Procedures ASSAY OF CK (CPK) (10/05/14) ASSAY OF NATRIURETIC PEPTIDE (05/13/20) ASSAY OF TROPONIN QUANT (05/13/20) BLOOD GASES ANY COMBINATION (05/13/20) C-REACTIVE PROTEIN (05/13/20) CHEST X-RAY 1 VIEW FRONTAL (10/05/14) COMPLETE CBC AUTOMATED (05/13/20) COMPLETE CBC W/AUTO DIFF WBC (10/05/14) COMPREHEN METABOLIC PANEL (05/13/20) CT HEAD/BRAIN W/O DYE (05/13/20) ELECTROCARDIOGRAM REPORT (05/13/20) ELECTROCARDIOGRAM TRACING (10/05/14) EMERGENCY DEPT VISIT (05/13/20) EMERGENCY DEPT VISIT (05/13/20) FIBRIN DEGRADATION QUANT (09/22/20) PROTHROMBIN TIME (05/13/20) ROUTINE VENIPUNCTURE (05/13/20) THER/PROPH/DIAG IV INF ADDON (10/05/14) THER/PROPH/DIAG IV INF INIT (10/05/14) THROMBOPLASTIN TIME PARTIAL (10/05/14) TX/PROPH/DG ADDL SEQ IV INF (10/05/14) URINALYSIS AUTO W/SCOPE (05/13/20) X-RAY EXAM CHEST 1 VIEW (05/13/20) (1) Left leg injury SNOMED Code(s): 35498659604094831 Code(s): S89.92XA - UNSPECIFIED INJURY OF LEFT LOWER LEG, INITIAL ENCOUNTER Current Visit: Yes Comment: Joint Manipulation under anesthesia Qualifiers: Encounter type: initial encounter Qualified Code(s): S89.92XA - Unspecified injury of left lower leg, initial encounter Assessment:: Orthopedic service consulted yesterday on patient for increased left lower extremity pain and inability to bear weight on left leg following hematoma evacuation. Knee films obtained showed patella marcos; upon exam, patients extensor mechanism intact and patella tendon appreciated. 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 No acute fractures noted on tib/fib nor ankle films. Suspect increased pain from hematoma and inflammation in L LE. Increased redness over [place] without warmth to touch and normal WBC makes this less likely an infectious etiology. Patient was removed from CAM walker boot and knee immobilizer and placed in a short leg orthoglass splint yesterday evening. Patient did pull the RICHARD wrap off overnight from splint and was agitated with staff. Splint was re-wrapped this morning; tolerated this much better than yesterday evening. Did not complain of significant pain when leg was touched and elevated to re-apply RICHARD wrap. Patient continues to be confused, RNs thought part of the confusion coincided with oxycodone administration. Changed pain control orders to a tapered Surprise to see if this had any impact on mental status/orientation. Plan for patient to WBAT on LLE and work with physical therapy. Goal to provide adequate pain control with PO medication to allow for discharge. Patient participated in PT today; pleasantly confused throughout morning session with increased ability to move left patella without grimacing in pain. Used a modxA2 to assist with transfer from bed to chair. Upon afternoon rounding, patient is very tired, up in chair. Afternoon physical therapy is about to begin. Splint remains in place on L LE. Plan to take off splint tomorrow to examine the erythema on is[place]. Hospitalist to continue medical management of patient. Problem List Initiated/Reviewed/Updated: Yes My Orders Last 24 Hours: My Active Orders 10/03/20 08:11 Acetaminophen/HYDROcodone [Surprise 325-5 MG] 1 - 2 tab PO Q4H PRN
[2020-10-03] MEDS: Divalproex Sodium Delayed-Release 250 MG Tab.CR PO SCH (17:11)
[2020-10-03] MEDS: Tamsulosin 0.4 MG Cap.ER PO SCH (20:26)
[2020-10-03] MEDS: Melatonin 3 MG Tab PO SCH (20:26)
[2020-10-03] MEDS: tiZANidine 2 MG Tab PO PRN (20:54)
[2020-10-04] MEDS: tiZANidine 2 MG Tab PO PRN ×2 (01:46→10:28)
[2020-10-04] MEDS: Divalproex Sodium Delayed-Release 250 MG Tab.CR PO SCH (08:10)
[2020-10-04] MEDS: Spironolactone 25 MG Tab PO SCH (10:29)
[2020-10-04] MEDS: Acetaminophen 500 MG Tab PO SCH ×3 (10:29→21:00)
[2020-10-04] MEDS: Allopurinol 100 MG Tab PO SCH (10:30)
[2020-10-04] MEDS: Aspirin 81 MG Tab.Chew PO SCH (10:30)
[2020-10-04] MEDS: Metoprolol Succinate 50 MG Tab.ER PO SCH (10:31)
[2020-10-04] MEDS ORDERED: traMADol 50 MG Tab PO PRN (10:37)
--- NOTE | 2020-10-04 12:36 | PCM.PN ---
- General Info Date of Service: 10/04/20 Subjective Update: More alert and interactive today but still somewhat confused. No acute issues or behavior issues overnight. He is able to bear weight with 2 assist. Edema is much better as far as the left leg is concerned. Bruising is much better 2. Vital signs have all been stable. Labs are stable and unremarkable. Functional Status: Reports: Pain Controlled, Tolerating Diet - Review of Systems Neurological: Reports: Confusion - Patient Data Vitals - Most Recent: Last Vital Signs Temp 36.3 C 10/04/20 11:16 Pulse 74 10/04/20 11:16 Resp 16 10/04/20 11:16 BP 129/60 10/04/20 11:16 Pulse Ox 98 10/04/20 11:16 Weight - Most Recent: 94.8 kg I&O - Last 24 Hours: Intake & Output 10/03/20 10/04/20 10/04/20 22:59 06:59 14:59 Intake Total 500 360 Output Total 450 500 Balance -450 0 360 Lab Results Last 24 Hours: Laboratory Results - last 24 hr 10/04/20 10/04/20 Range/Units 05:00 05:00 WBC 4.7 (4.5-11.0) K/uL RBC 2.82 L (4.30-5.90) M/uL Hgb 9.7 L (12.0-15.0) g/dL Hct 28.5 L (40.0-54.0) % MCV 101 H (80-98) fL MCH 34 H (27-31) pg MCHC 34 (32-36) % Plt Count 283 (150-400) K/uL Sodium 132 L (140-148) mmol/L Potassium 4.6 (3.6-5.2) mmol/L Chloride 97 L (100-108) mmol/L Carbon Dioxide 25 (21-32) mmol/L Anion Gap 14.6 H (5.0-14.0) mmol/L BUN 19 H (7-18) mg/dL Creatinine 1.0 (0.8-1.3) mg/dL Est Cr Clr Drug Dosing 61.70 mL/min Estimated GFR (MDRD) > 60 (>60) Glucose 113 H (74-106) mg/dL Calcium 8.0 L (8.5-10.1) mg/dL Total Bilirubin 0.9 (0.2-1.0) mg/dL AST 28 (15-37) U/L ALT 43 (12-78) U/L Alkaline Phosphatase 64 (46-116) U/L Total Protein 6.1 L (6.4-8.2) g/dL Albumin 2.5 L (3.4-5.0) g/dL Globulin 3.6 H (2.3-3.5) g/dL Albumin/Globulin Ratio 0.7 L (1.2-2.2) Med Orders - Current: Current Medications Acetaminophen (Acetaminophen 500 Mg Tab) 1,000 mg PO TID [facility] Last Admin: 10/04/20 10:29 Dose: 1,000 mg Documented by: Allopurinol (Allopurinol 100 Mg Tab) 200 mg PO DAILY [facility] Last Admin: 10/04/20 10:30 Dose: 200 mg Documented by: Aspirin (Aspirin 81 Mg Tab.Chew) 81 mg PO DAILY [facility] Last Admin: 10/04/20 10:30 Dose: 81 mg Documented by: Haloperidol Lactate (Haloperidol Lactate 5 Mg/Ml Sdv) 2 mg IV Q2H PRN PRN Reason: AGITATION Last Admin: 10/03/20 11:00 Dose: 2 mg Documented by: Lisinopril (Lisinopril 20 Mg Tab) 20 mg PO DAILY [facility] Last Admin: 10/01/20 09:05 Dose: 20 mg Documented by: Melatonin (Melatonin 3 Mg Tab) 9 mg PO BEDTIME [facility] Last Admin: 10/03/20 20:26 Dose: 9 mg Documented by: Methotrexate (Methotrexate 2.5 Mg Tab) 10 mg PO Q7D [facility] Metoprolol Succinate (Metoprolol Succinate 50 Mg Tab.Er) 50 mg PO DAILY [facility] Last Admin: 10/04/20 10:31 Dose: 50 mg Documented by: Ondansetron HCl (Ondansetron 4 Mg/2 Ml Sdv) 4 mg IV Q4H PRN PRN Reason: Nausea/Vomiting Polyethylene Glycol (Polyethylene Glycol 3350 Powder 17 Gm Packet) 17 gm PO DAILY PRN PRN Reason: Constipation Last Admin: 10/03/20 20:54 Dose: 17 gm Documented by: Rivaroxaban (Rivaroxaban 10 Mg Tab) 20 mg PO WITHRENITA [facility] Sodium Chloride (Sodium Chloride 0.9% 10 Ml Syringe) 10 ml FLUSH ASDIRECTED PRN PRN Reason: Keep Vein Open Spironolactone (Spironolactone 25 Mg Tab) 25 mg PO DAILY [facility] Last Admin: 10/04/20 10:29 Dose: 25 mg Documented by: Tamsulosin HCl (Tamsulosin 0.4 Mg Cap.Er) 0.4 mg PO BEDTIME [facility] Last Admin: 10/03/20 20:26 Dose: 0.4 mg Documented by: Tizanidine HCl (Tizanidine 2 Mg Tab) 1 mg PO Q6H PRN PRN Reason: Muscle Spasm - Painful Last Admin: 10/04/20 10:28 Dose: 1 mg Documented by: Tramadol HCl (Tramadol 50 Mg Tab) 50 mg PO Q6H PRN PRN Reason: Pain Discontinued Medications Acetaminophen (Acetaminophen 325 Mg Tab) 650 mg PO Q4H PRN PRN Reason: Pain (Mild 1-3)/fever Last Admin: 10/03/20 05:28 Dose: 650 mg Documented by: Hydrocodone Bitart/Acetaminophen (Acetaminophen/Hydrocodone 325-5 Mg Tab) 1 tab PO Q4H PRN PRN Reason: Pain Hydrocodone Bitart/Acetaminophen (Acetaminophen/Hydrocodone 325-5 Mg Tab) 1 - 2 tab PO Q4H PRN PRN Reason: Pain Last Admin: 10/03/20 17:11 Dose: 1 tab Documented by: Cyclobenzaprine HCl (Cyclobenzaprine 10 Mg Tab) 10 mg PO Q8H PRN PRN Reason: Spasms Last Admin: 10/03/20 01:28 Dose: 10 mg Documented by: Divalproex Sodium (Divalproex Sodium Delayed-Release 250 Mg Tab.Cr) 250 mg PO BIDMEALS [facility] Last Admin: 10/04/20 08:10 Dose: 250 mg Documented by: Fentanyl (Fentanyl 100 Mcg/2 Ml Sdv) Confirm Administered Dose 100 mcg .ROUTE .STK-MED ONE Stop: 09/30/20 09:34 Furosemide (Furosemide 20 Mg/2 Ml Vial) 20 mg IV ONETIME ONE Stop: 10/01/20 10:01 Last Admin: 10/01/20 10:26 Dose: 20 mg Documented by: Gabapentin (Gabapentin 300 Mg Cap) 300 mg PO TID [facility] Last Admin: 10/03/20 14:21 Dose: Not Given Documented by: Haloperidol Lactate (Haloperidol Lactate 5 Mg/Ml Sdv) 1 mg IV Q2H PRN PRN Reason: AGITATION Last Admin: 10/02/20 09:28 Dose: 1 mg Documented by: Hydromorphone HCl (Hydromorphone 0.5 Mg/0.5 Ml Syringe) 0.5 mg IVPUSH Q2H PRN PRN Reason: Pain (severe 7-10) Last Admin: 09/30/20 11:15 Dose: 0.5 mg Documented by: Hydromorphone HCl (Hydromorphone 0.5 Mg/0.5 Ml Syringe) 0.5 - 1 mg IVPUSH Q1H PRN PRN Reason: Pain (severe 7-10) Last Admin: 10/01/20 09:53 Dose: 1 mg Documented by: Hydromorphone HCl (Hydromorphone 0.5 Mg/0.5 Ml Syringe) 0.5 mg IVPUSH Q2H PRN PRN Reason: Breakthrough Pain Last Admin: 10/03/20 11:16 Dose: 0.5 mg Documented by: Cefazolin Sodium 1 gm/ Sodium (Chloride) 50 mls @ 100 mls/hr IV ONETIME ONE Stop: 09/29/20 17:32 Last Admin: 09/29/20 17:25 Dose: 100 mls/hr Documented by: Sodium Chloride (Normal Saline) 1,000 mls @ 250 mls/hr IV ASDIRECTED [facility] Last Admin: 09/29/20 17:20 Dose: 250 mls/hr Documented by: Sodium Chloride (Normal Saline) 1,000 mls @ 125 mls/hr IV ASDIRECTED [facility] Last Admin: 09/30/20 00:05 Dose: 125 mls/hr Documented by: Cefazolin Sodium 1 gm/ Sodium (Chloride) 50 mls @ 200 mls/hr IV Q8HR [facility] Piperacillin Sod/Tazobactam (Sod 3.375 gm/ Sodium Chloride) 50 mls @ 100 mls/hr IV Q6H [facility] Last Admin: 09/30/20 06:02 Dose: 100 mls/hr Documented by: Vancomycin HCl 1.25 gm/ Sodium (Chloride) 250 mls @ 166.667 mls/hr IV BID [facility] Last Admin: 09/29/20 20:30 Dose: 166.667 mls/hr Documented by: Sterile Water (Sterile Water For Injection) Confirm Administered Dose 20 mls @ as directed .ROUTE .STK-MED ONE Stop: 09/29/20 19:53 Last Admin: 09/29/20 20:01 Dose: Not Given Documented by: Piperacillin/Tazobactam/ (Dextrose 3.375 gm/ Premix) 50 mls @ 100 mls/hr IV Q6H [facility] Last Admin: 09/30/20 13:45 Dose: 100 mls/hr Documented by: Vancomycin HCl 1.25 gm/ Sodium (Chloride) 250 mls @ 166.667 mls/hr IV Q12H [facility] Last Admin: 09/30/20 11:23 Dose: 166.667 mls/hr Documented by: Magnesium Sulfate (Magnesium Sulfate In Water 2 Gm/50 Ml) 2 gm in 50 mls @ 25 mls/hr IV Q6H [facility] Stop: 10/04/20 05:59 Last Admin: 10/03/20 03:29 Dose: 25 mls/hr Documented by: Potassium Phosphate 15 mmol/ (Premix) 250 mls @ 84 mls/hr IV Q3H [facility] Stop: 10/01/20 20:59 Last Admin: 10/01/20 19:06 Dose: 84 mls/hr Documented by: Sodium Chloride (Normal Saline) 500 mls @ 500 mls/hr IV ONETIME ONE Stop: 10/01/20 16:59 Last Admin: 10/01/20 16:53 Dose: 500 mls/hr Documented by: Ketorolac Tromethamine (Ketorolac 30 Mg/Ml Sdv) 30 mg IVPUSH ONETIME ONE Stop: 10/03/20 12:46 Last Admin: 10/03/20 13:07 Dose: 30 mg Documented by: Lidocaine HCl (Lidocaine 2% Jelly 10 Ml Urojet) 10 ml MUCMEM ONETIME ONE Stop: 09/30/20 19:33 Last Admin: 09/30/20 19:40 Dose: 10 ml Documented by: Melatonin (Melatonin 3 Mg Tab) 3 mg PO BEDTIME [facility] Last Admin: 09/30/20 20:52 Dose: 3 mg Documented by: Oxycodone HCl (Oxycodone 5 Mg Tab) 5 mg PO Q4H PRN PRN Reason: Pain (moderate 4-6) Last Admin: 10/03/20 05:28 Dose: 5 mg Documented by: Propofol (Propofol 200 Mg/20 Ml Sdv) Confirm Administered Dose 200 mg .ROUTE .STK-MED ONE Stop: 09/30/20 09:34 Tizanidine HCl (Tizanidine 4 Mg Tab) 2 mg PO Q6H PRN PRN Reason: Muscle Spasm - Painful Last Admin: 10/03/20 08:27 Dose: 2 mg Documented by: Vancomycin HCl (Vancomycin 1 Gm Sdv) 1 gm IV .PHARMACY TO DOSE ОЛЬГА Stop: 09/30/20 07:30 - Exam Quality Assessment: No: Supplemental Oxygen Urinary Catheter Total Time: 1Days 3Hours General: Alert, Cooperative, No Acute Distress. No: Oriented Lungs: Normal Respiratory Effort Cardiovascular: Regular Rate GI/Abdominal Exam: Soft Extremities: Pedal Edema (left foot ). No: Increased Warmth Skin: Warm, Dry Psy/Mental Status: Alert. No: Agitated - Patient Data Lab Results Last 24 hrs: Laboratory Results - last 24 hr 10/04/20 10/04/20 Range/Units 05:00 05:00 WBC 4.7 (4.5-11.0) K/uL RBC 2.82 L (4.30-5.90) M/uL Hgb 9.7 L (12.0-15.0) g/dL Hct 28.5 L (40.0-54.0) % MCV 101 H (80-98) fL MCH 34 H (27-31) pg MCHC 34 (32-36) % Plt Count 283 (150-400) K/uL Sodium 132 L (140-148) mmol/L Potassium 4.6 (3.6-5.2) mmol/L Chloride 97 L (100-108) mmol/L Carbon Dioxide 25 (21-32) mmol/L Anion Gap 14.6 H (5.0-14.0) mmol/L BUN 19 H (7-18) mg/dL Creatinine 1.0 (0.8-1.3) mg/dL Est Cr Clr Drug Dosing 61.70 mL/min Estimated GFR (MDRD) > 60 (>60) Glucose 113 H (74-106) mg/dL Calcium 8.0 L (8.5-10.1) mg/dL Total Bilirubin 0.9 (0.2-1.0) mg/dL AST 28 (15-37) U/L ALT 43 (12-78) U/L Alkaline Phosphatase 64 (46-116) U/L Total Protein 6.1 L (6.4-8.2) g/dL Albumin 2.5 L (3.4-5.0) g/dL Globulin 3.6 H (2.3-3.5) g/dL Albumin/Globulin Ratio 0.7 L (1.2-2.2) Result Diagrams: 10/04/20 05:00 10/04/20 05:00 Sepsis Event Note - Evaluation Sepsis Screening Result: No Definite Risk - Focused Exam Vital Signs: Vital Signs Temp Pulse Pulse Resp BP BP Pulse Ox 10/04/20 11:16 36.3 C 74 16 129/60 98 10/04/20 10:31 84 165/70 H 10/04/20 09:00 81 165/70 H 10/04/20 05:00 35.8 C L 55 L 99 H 134/94 H 0 L 10/04/20 01:48 35.5 C L 76 18 149/62 H 99 - Problem List Review Problem List Initiated/Reviewed/Updated: Yes - My Orders Last 24 Hours: My Active Orders 10/03/20 14:00 Acetaminophen [Tylenol Extra Strength] 1,000 mg PO TID 10/04/20 10:37 traMADol [Ultram] 50 mg PO Q6H PRN - Plan Plan:: ASSESSMENT AND PLAN - INJURY TO THE LEFT LOWER LEG WITH HEMATOMA-status post surgical debridement by Dr. Pearson. Difficulty with pain control and concerned that his pain medications are leading to the hyperactive delirium. Doing much better with current pain control regimen. -Scheduled acetaminophen, as needed tramadol and as needed tizanidine -Orthopedic consultation -Postoperative care per Dr. Pearson -Continue splint and Anibal wrap to the left lower extremity HYPERACTIVE DELIRIUM-agitation seems to finally be resolving though he is still a little bit confused. -Melatonin 9 mg p.o. nightly -Haldol every 2 hours as needed -Limit narcotics and other medications that could potentially increase delirium Peripheral vascular disease-occlusion of the left proximal superficial femoral artery noted with ultrasound. There was some collateral flow noted with reconstitution of the popliteal artery though monophasic waveforms were noted there. This was discussed with vascular surgery at [facility]. They did not feel there was an urgent need for intervention at this time and recommended medical management and outpatient follow-up. Chronic atrial fibrillation-rate controlled at this time. -Continue metoprolol -Rivaroxaban on hold MAINTENANCE ISSUES -DVT prophylaxis; unable to use pharmacological means because of recent bleeding and hematoma -GI prophylaxis; not indicated -Bowser catheter; not indicated -Nutrition; regular diet DISPOSITION-anticipate discharge to home versus subacute rehab after the hospital stay. Edgar Muse MD
--- NOTE | 2020-10-04 17:10 | PCM.CONSN ---
- General Info Date of Service: 10/04/20 Functional Status: Reports: Pain Controlled, Ambulating (45 ft with FWW [id number] standby ) - Review of Systems Musculoskeletal: Reports: Leg Pain (left ), Joint Pain (L LE ) Skin: Reports: Bruising Neurological: Reports: Confusion Psychiatric: Reports: Confusion - Patient Data Vitals - Most Recent: Last Vital Signs Temp 97.1 F 10/04/20 15:58 Pulse 59 L 10/04/20 15:58 Resp 16 10/04/20 15:58 BP 123/87 10/04/20 15:58 Pulse Ox 96 10/04/20 15:58 Weight - Most Recent: 208 lb 15.971 oz I&O - Last 24 Hours: Intake & Output 10/04/20 10/04/20 10/04/20 06:59 14:59 22:59 Intake Total 500 360 Output Total 500 Balance 0 360 Lab Results Last 24 Hours: Laboratory Results - last 24 hr 10/04/20 10/04/20 Range/Units 05:00 05:00 WBC 4.7 (4.5-11.0) K/uL RBC 2.82 L (4.30-5.90) M/uL Hgb 9.7 L (12.0-15.0) g/dL Hct 28.5 L (40.0-54.0) % MCV 101 H (80-98) fL MCH 34 H (27-31) pg MCHC 34 (32-36) % Plt Count 283 (150-400) K/uL Sodium 132 L (140-148) mmol/L Potassium 4.6 (3.6-5.2) mmol/L Chloride 97 L (100-108) mmol/L Carbon Dioxide 25 (21-32) mmol/L Anion Gap 14.6 H (5.0-14.0) mmol/L BUN 19 H (7-18) mg/dL Creatinine 1.0 (0.8-1.3) mg/dL Est Cr Clr Drug Dosing 61.70 mL/min Estimated GFR (MDRD) > 60 (>60) Glucose 113 H (74-106) mg/dL Calcium 8.0 L (8.5-10.1) mg/dL Total Bilirubin 0.9 (0.2-1.0) mg/dL AST 28 (15-37) U/L ALT 43 (12-78) U/L Alkaline Phosphatase 64 (46-116) U/L Total Protein 6.1 L (6.4-8.2) g/dL Albumin 2.5 L (3.4-5.0) g/dL Globulin 3.6 H (2.3-3.5) g/dL Albumin/Globulin Ratio 0.7 L (1.2-2.2) Med Orders - Current: Current Medications Acetaminophen (Acetaminophen 500 Mg Tab) 1,000 mg PO TID [facility] Last Admin: 10/04/20 15:34 Dose: 1,000 mg Documented by: Allopurinol (Allopurinol 100 Mg Tab) 200 mg PO DAILY [facility] Last Admin: 10/04/20 10:30 Dose: 200 mg Documented by: Aspirin (Aspirin 81 Mg Tab.Chew) 81 mg PO DAILY [facility] Last Admin: 10/04/20 10:30 Dose: 81 mg Documented by: Haloperidol Lactate (Haloperidol Lactate 5 Mg/Ml Sdv) 2 mg IV Q2H PRN PRN Reason: AGITATION Last Admin: 10/03/20 11:00 Dose: 2 mg Documented by: Lisinopril (Lisinopril 20 Mg Tab) 20 mg PO DAILY [facility] Last Admin: 10/01/20 09:05 Dose: 20 mg Documented by: Melatonin (Melatonin 3 Mg Tab) 9 mg PO BEDTIME [facility] Last Admin: 10/03/20 20:26 Dose: 9 mg Documented by: Methotrexate (Methotrexate 2.5 Mg Tab) 10 mg PO Q7D [facility] Metoprolol Succinate (Metoprolol Succinate 50 Mg Tab.Er) 50 mg PO DAILY [facility] Last Admin: 10/04/20 10:31 Dose: 50 mg Documented by: Ondansetron HCl (Ondansetron 4 Mg/2 Ml Sdv) 4 mg IV Q4H PRN PRN Reason: Nausea/Vomiting Polyethylene Glycol (Polyethylene Glycol 3350 Powder 17 Gm Packet) 17 gm PO DAILY PRN PRN Reason: Constipation Last Admin: 10/03/20 20:54 Dose: 17 gm Documented by: Rivaroxaban (Rivaroxaban 10 Mg Tab) 20 mg PO WITHRENITA [facility] Sodium Chloride (Sodium Chloride 0.9% 10 Ml Syringe) 10 ml FLUSH ASDIRECTED PRN PRN Reason: Keep Vein Open Spironolactone (Spironolactone 25 Mg Tab) 25 mg PO DAILY [facility] Last Admin: 10/04/20 10:29 Dose: 25 mg Documented by: Tamsulosin HCl (Tamsulosin 0.4 Mg Cap.Er) 0.4 mg PO BEDTIME [facility] Last Admin: 10/03/20 20:26 Dose: 0.4 mg Documented by: Tizanidine HCl (Tizanidine 2 Mg Tab) 1 mg PO Q6H PRN PRN Reason: Muscle Spasm - Painful Last Admin: 10/04/20 10:28 Dose: 1 mg Documented by: Tramadol HCl (Tramadol 50 Mg Tab) 50 mg PO Q6H PRN PRN Reason: Pain Discontinued Medications Acetaminophen (Acetaminophen 325 Mg Tab) 650 mg PO Q4H PRN PRN Reason: Pain (Mild 1-3)/fever Last Admin: 10/03/20 05:28 Dose: 650 mg Documented by: Hydrocodone Bitart/Acetaminophen (Acetaminophen/Hydrocodone 325-5 Mg Tab) 1 tab PO Q4H PRN PRN Reason: Pain Hydrocodone Bitart/Acetaminophen (Acetaminophen/Hydrocodone 325-5 Mg Tab) 1 - 2 tab PO Q4H PRN PRN Reason: Pain Last Admin: 10/03/20 17:11 Dose: 1 tab Documented by: Cyclobenzaprine HCl (Cyclobenzaprine 10 Mg Tab) 10 mg PO Q8H PRN PRN Reason: Spasms Last Admin: 10/03/20 01:28 Dose: 10 mg Documented by: Divalproex Sodium (Divalproex Sodium Delayed-Release 250 Mg Tab.Cr) 250 mg PO BIDMEALS [facility] Last Admin: 10/04/20 08:10 Dose: 250 mg Documented by: Fentanyl (Fentanyl 100 Mcg/2 Ml Sdv) Confirm Administered Dose 100 mcg .ROUTE .STK-MED ONE Stop: 09/30/20 09:34 Furosemide (Furosemide 20 Mg/2 Ml Vial) 20 mg IV ONETIME ONE Stop: 10/01/20 10:01 Last Admin: 10/01/20 10:26 Dose: 20 mg Documented by: Gabapentin (Gabapentin 300 Mg Cap) 300 mg PO TID [facility] Last Admin: 10/03/20 14:21 Dose: Not Given Documented by: Haloperidol Lactate (Haloperidol Lactate 5 Mg/Ml Sdv) 1 mg IV Q2H PRN PRN Reason: AGITATION Last Admin: 10/02/20 09:28 Dose: 1 mg Documented by: Hydromorphone HCl (Hydromorphone 0.5 Mg/0.5 Ml Syringe) 0.5 mg IVPUSH Q2H PRN PRN Reason: Pain (severe 7-10) Last Admin: 09/30/20 11:15 Dose: 0.5 mg Documented by: Hydromorphone HCl (Hydromorphone 0.5 Mg/0.5 Ml Syringe) 0.5 - 1 mg IVPUSH Q1H PRN PRN Reason: Pain (severe 7-10) Last Admin: 10/01/20 09:53 Dose: 1 mg Documented by: Hydromorphone HCl (Hydromorphone 0.5 Mg/0.5 Ml Syringe) 0.5 mg IVPUSH Q2H PRN PRN Reason: Breakthrough Pain Last Admin: 10/03/20 11:16 Dose: 0.5 mg Documented by: Cefazolin Sodium 1 gm/ Sodium (Chloride) 50 mls @ 100 mls/hr IV ONETIME ONE Stop: 09/29/20 17:32 Last Admin: 09/29/20 17:25 Dose: 100 mls/hr Documented by: Sodium Chloride (Normal Saline) 1,000 mls @ 250 mls/hr IV ASDIRECTED [facility] Last Admin: 09/29/20 17:20 Dose: 250 mls/hr Documented by: Sodium Chloride (Normal Saline) 1,000 mls @ 125 mls/hr IV ASDIRECTED [facility] Last Admin: 09/30/20 00:05 Dose: 125 mls/hr Documented by: Cefazolin Sodium 1 gm/ Sodium (Chloride) 50 mls @ 200 mls/hr IV Q8HR [facility] Piperacillin Sod/Tazobactam (Sod 3.375 gm/ Sodium Chloride) 50 mls @ 100 mls/hr IV Q6H [facility] Last Admin: 09/30/20 06:02 Dose: 100 mls/hr Documented by: Vancomycin HCl 1.25 gm/ Sodium (Chloride) 250 mls @ 166.667 mls/hr IV BID О[facility] Last Admin: 09/29/20 20:30 Dose: 166.667 mls/hr Documented by: Sterile Water (Sterile Water For Injection) Confirm Administered Dose 20 mls @ as directed .ROUTE .STK-MED ONE Stop: 09/29/20 19:53 Last Admin: 09/29/20 20:01 Dose: Not Given Documented by: Piperacillin/Tazobactam/ (Dextrose 3.375 gm/ Premix) 50 mls @ 100 mls/hr IV Q6H [facility] Last Admin: 09/30/20 13:45 Dose: 100 mls/hr Documented by: Vancomycin HCl 1.25 gm/ Sodium (Chloride) 250 mls @ 166.667 mls/hr IV Q12H [facility] Last Admin: 09/30/20 11:23 Dose: 166.667 mls/hr Documented by: Magnesium Sulfate (Magnesium Sulfate In Water 2 Gm/50 Ml) 2 gm in 50 mls @ 25 mls/hr IV Q6H [facility] Stop: 10/04/20 05:59 Last Admin: 10/03/20 03:29 Dose: 25 mls/hr Documented by: Potassium Phosphate 15 mmol/ (Premix) 250 mls @ 84 mls/hr IV Q3H [facility] Stop: 10/01/20 20:59 Last Admin: 10/01/20 19:06 Dose: 84 mls/hr Documented by: Sodium Chloride (Normal Saline) 500 mls @ 500 mls/hr IV ONETIME ONE Stop: 10/01/20 16:59 Last Admin: 10/01/20 16:53 Dose: 500 mls/hr Documented by: Ketorolac Tromethamine (Ketorolac 30 Mg/Ml Sdv) 30 mg IVPUSH ONETIME ONE Stop: 10/03/20 12:46 Last Admin: 10/03/20 13:07 Dose: 30 mg Documented by: Lidocaine HCl (Lidocaine 2% Jelly 10 Ml Urojet) 10 ml MUCMEM ONETIME ONE Stop: 09/30/20 19:33 Last Admin: 09/30/20 19:40 Dose: 10 ml Documented by: Melatonin (Melatonin 3 Mg Tab) 3 mg PO BEDTIME [facility] Last Admin: 09/30/20 20:52 Dose: 3 mg Documented by: Oxycodone HCl (Oxycodone 5 Mg Tab) 5 mg PO Q4H PRN PRN Reason: Pain (moderate 4-6) Last Admin: 10/03/20 05:28 Dose: 5 mg Documented by: Propofol (Propofol 200 Mg/20 Ml Sdv) Confirm Administered Dose 200 mg .ROUTE .STK-MED ONE Stop: 09/30/20 09:34 Tizanidine HCl (Tizanidine 4 Mg Tab) 2 mg PO Q6H PRN PRN Reason: Muscle Spasm - Painful Last Admin: 10/03/20 08:27 Dose: 2 mg Documented by: Vancomycin HCl (Vancomycin 1 Gm Sdv) 1 gm IV .PHARMACY TO DOSE ОЛЬГА Stop: 09/30/20 07:30 - Exam Urinary Catheter Total Time: 1Days 3Hours General: Cooperative, No Acute Distress Extremities: Normal Capillary Refill, Leg Pain, Limited Range of Motion, Redness Skin: Dry, Intact, Ecchymosis Wound/Incisions: Drainage (minimal drainage on back of L calf near alex), Erythema Sepsis Event Note - Evaluation Sepsis Screening Result: No Definite Risk - Focused Exam Vital Signs: Vital Signs Temp Pulse Pulse Resp BP BP Pulse Ox 10/04/20 15:58 97.1 F 59 L 16 123/87 96 10/04/20 15:00 95.7 F L 100 16 136/75 10/04/20 11:16 97.4 F 74 16 129/60 98 10/04/20 10:31 84 165/70 H 10/04/20 09:00 81 165/70 H Consult PN Assessment/Plan Procedures: Procedures ASSAY OF CK (CPK) (10/05/14) ASSAY OF NATRIURETIC PEPTIDE (05/13/20) ASSAY OF TROPONIN QUANT (05/13/20) BLOOD GASES ANY COMBINATION (05/13/20) C-REACTIVE PROTEIN (05/13/20) CHEST X-RAY 1 VIEW FRONTAL (10/05/14) COMPLETE CBC AUTOMATED (05/13/20) COMPLETE CBC W/AUTO DIFF WBC (10/05/14) COMPREHEN METABOLIC PANEL (05/13/20) CT HEAD/BRAIN W/O DYE (05/13/20) ELECTROCARDIOGRAM REPORT (05/13/20) ELECTROCARDIOGRAM TRACING (10/05/14) EMERGENCY DEPT VISIT (05/13/20) EMERGENCY DEPT VISIT (05/13/20) FIBRIN DEGRADATION QUANT (09/22/20) PROTHROMBIN TIME (05/13/20) ROUTINE VENIPUNCTURE (05/13/20) THER/PROPH/DIAG IV INF ADDON (10/05/14) THER/PROPH/DIAG IV INF INIT (10/05/14) THROMBOPLASTIN TIME PARTIAL (10/05/14) TX/PROPH/DG ADDL SEQ IV INF (10/05/14) URINALYSIS AUTO W/SCOPE (05/13/20) X-RAY EXAM CHEST 1 VIEW (05/13/20) (1) Left leg injury SNOMED Code(s): 85235441034237857 Code(s): S89.92XA - UNSPECIFIED INJURY OF LEFT LOWER LEG, INITIAL ENCOUNTER Current Visit: Yes Comment: Joint Manipulation under anesthesia Qualifiers: Encounter type: initial encounter Qualified Code(s): S89.92XA - Unspecified injury of left lower leg, initial encounter Problem List Initiated/Reviewed/Updated: Yes Plan: Ortho has been following Mr. Moralez for increased L LE pain. All x-ray imaging revealed no acute fractures. Was placed in a short leg orthoglass splint 2 days prior for immobilization. Splint was removed this afternoon, patient tolerated this well and was able to assist in lifting and extending at knee joint without significant discomfort as he had days prior. The erythema on the [place] is still present, appears to be somewhat decreasing in size. No warmth to touch. Minimal drainage along alex on back of L calf. Ecchymosis remains present along entirety of L LE. Patient appears much more alert today. Has been using extra strength tylenol and tramadol for pain control. Patient endorsed less pain in leg today. Participated in physical therapy after splint removal and ambulated 45 feet with FWW and x1 assist, WBAT on the L LE. Plan to remove alex from L LE tomorrow morning.
[2020-10-04] MEDS: Melatonin 3 MG Tab PO SCH (21:07)
[2020-10-04] MEDS: Tamsulosin 0.4 MG Cap.ER PO SCH (21:07)
[2020-10-05] MEDS: Acetaminophen 500 MG Tab PO SCH ×4 (07:33→21:43)
--- NOTE | 2020-10-05 08:37 | PN ---
DATE OF SERVICE: 10/05/2020 SUBJECTIVE: Horacio's vital signs have been stable. He has been able to do a little bit more weight bearing. He remains to be confused. OBJECTIVE: GENERAL: Horacio is a pleasant 80-year-old male. VITAL SIGNS: TPR is 97.1, 87, 16, blood pressure 178/85. HEART: Regular rate and rhythm. LUNGS: Clear. EXTREMITIES: Left leg in a fiberglass cast. ASSESSMENT: Ischemia of left leg, status post evacuation hematoma; urinary retention; and uncontrolled pain, left leg, resolving. PLAN: Continue physical therapy. Pending placement to rehab facility. We will evaluate p.r.n. or in a.m. [place] will be able to be removed prior to retirement placement. Lynda Haque PA-C /[id number]
--- NOTE | 2020-10-05 09:03 | PCM.CONSN ---
- General Info Date of Service: 10/05/20 Functional Status: Reports: Tolerating Diet, Ambulating (with FWW, x2 assist ), Urinating - Review of Systems Musculoskeletal: Reports: Leg Pain (left ) Skin: Reports: Bruising Neurological: Reports: Confusion Psychiatric: Reports: Confusion - Patient Data Vitals - Most Recent: Last Vital Signs Temp 97.7 F 10/05/20 07:54 Pulse 67 10/05/20 07:54 Resp 18 10/05/20 07:54 BP 170/97 H 10/05/20 07:54 Pulse Ox 96 10/05/20 07:54 Weight - Most Recent: 208 lb 15.971 oz I&O - Last 24 Hours: Intake & Output 10/04/20 10/05/20 10/05/20 22:59 06:59 14:59 Intake Total 600 Output Total 2450 7860 877 Balance -1850 -1175 -250 Med Orders - Current: Current Medications Acetaminophen (Acetaminophen 500 Mg Tab) 1,000 mg PO TID [facility] Last Admin: 10/05/20 07:33 Dose: 1,000 mg Documented by: Allopurinol (Allopurinol 100 Mg Tab) 200 mg PO DAILY [facility] Last Admin: 10/04/20 10:30 Dose: 200 mg Documented by: Aspirin (Aspirin 81 Mg Tab.Chew) 81 mg PO DAILY [facility] Last Admin: 10/04/20 10:30 Dose: 81 mg Documented by: Haloperidol Lactate (Haloperidol Lactate 5 Mg/Ml Sdv) 2 mg IV Q2H PRN PRN Reason: AGITATION Last Admin: 10/03/20 11:00 Dose: 2 mg Documented by: Lisinopril (Lisinopril 20 Mg Tab) 20 mg PO DAILY [facility] Last Admin: 10/01/20 09:05 Dose: 20 mg Documented by: Melatonin (Melatonin 3 Mg Tab) 9 mg PO BEDTIME [facility] Last Admin: 10/04/20 21:07 Dose: 9 mg Documented by: Methotrexate (Methotrexate 2.5 Mg Tab) 10 mg PO Q7D [facility] Metoprolol Succinate (Metoprolol Succinate 50 Mg Tab.Er) 50 mg PO DAILY [facility] Last Admin: 10/04/20 10:31 Dose: 50 mg Documented by: Ondansetron HCl (Ondansetron 4 Mg/2 Ml Sdv) 4 mg IV Q4H PRN PRN Reason: Nausea/Vomiting Polyethylene Glycol (Polyethylene Glycol 3350 Powder 17 Gm Packet) 17 gm PO DAILY PRN PRN Reason: Constipation Last Admin: 10/03/20 20:54 Dose: 17 gm Documented by: Rivaroxaban (Rivaroxaban 10 Mg Tab) 20 mg PO WITHRENITA [facility] Sodium Chloride (Sodium Chloride 0.9% 10 Ml Syringe) 10 ml FLUSH ASDIRECTED PRN PRN Reason: Keep Vein Open Spironolactone (Spironolactone 25 Mg Tab) 25 mg PO DAILY [facility] Last Admin: 10/04/20 10:29 Dose: 25 mg Documented by: Tamsulosin HCl (Tamsulosin 0.4 Mg Cap.Er) 0.4 mg PO BEDTIME [facility] Last Admin: 10/04/20 21:07 Dose: 0.4 mg Documented by: Tizanidine HCl (Tizanidine 2 Mg Tab) 1 mg PO Q6H PRN PRN Reason: Muscle Spasm - Painful Last Admin: 10/04/20 10:28 Dose: 1 mg Documented by: Tramadol HCl (Tramadol 50 Mg Tab) 50 mg PO Q6H PRN PRN Reason: Pain Discontinued Medications Acetaminophen (Acetaminophen 325 Mg Tab) 650 mg PO Q4H PRN PRN Reason: Pain (Mild 1-3)/fever Last Admin: 10/03/20 05:28 Dose: 650 mg Documented by: Hydrocodone Bitart/Acetaminophen (Acetaminophen/Hydrocodone 325-5 Mg Tab) 1 tab PO Q4H PRN PRN Reason: Pain Hydrocodone Bitart/Acetaminophen (Acetaminophen/Hydrocodone 325-5 Mg Tab) 1 - 2 tab PO Q4H PRN PRN Reason: Pain Last Admin: 10/03/20 17:11 Dose: 1 tab Documented by: Cyclobenzaprine HCl (Cyclobenzaprine 10 Mg Tab) 10 mg PO Q8H PRN PRN Reason: Spasms Last Admin: 10/03/20 01:28 Dose: 10 mg Documented by: Divalproex Sodium (Divalproex Sodium Delayed-Release 250 Mg Tab.Cr) 250 mg PO BIDMEALS [facility] Last Admin: 10/04/20 08:10 Dose: 250 mg Documented by: Fentanyl (Fentanyl 100 Mcg/2 Ml Sdv) Confirm Administered Dose 100 mcg .ROUTE .K-MED ONE Stop: 09/30/20 09:34 Furosemide (Furosemide 20 Mg/2 Ml Vial) 20 mg IV ONETIME ONE Stop: 10/01/20 10:01 Last Admin: 10/01/20 10:26 Dose: 20 mg Documented by: Gabapentin (Gabapentin 300 Mg Cap) 300 mg PO TID [facility] Last Admin: 10/03/20 14:21 Dose: Not Given Documented by: Haloperidol Lactate (Haloperidol Lactate 5 Mg/Ml Sdv) 1 mg IV Q2H PRN PRN Reason: AGITATION Last Admin: 10/02/20 09:28 Dose: 1 mg Documented by: Hydromorphone HCl (Hydromorphone 0.5 Mg/0.5 Ml Syringe) 0.5 mg IVPUSH Q2H PRN PRN Reason: Pain (severe 7-10) Last Admin: 09/30/20 11:15 Dose: 0.5 mg Documented by: Hydromorphone HCl (Hydromorphone 0.5 Mg/0.5 Ml Syringe) 0.5 - 1 mg IVPUSH Q1H PRN PRN Reason: Pain (severe 7-10) Last Admin: 10/01/20 09:53 Dose: 1 mg Documented by: Hydromorphone HCl (Hydromorphone 0.5 Mg/0.5 Ml Syringe) 0.5 mg IVPUSH Q2H PRN PRN Reason: Breakthrough Pain Last Admin: 10/03/20 11:16 Dose: 0.5 mg Documented by: Cefazolin Sodium 1 gm/ Sodium (Chloride) 50 mls @ 100 mls/hr IV ONETIME ONE Stop: 09/29/20 17:32 Last Admin: 09/29/20 17:25 Dose: 100 mls/hr Documented by: Sodium Chloride (Normal Saline) 1,000 mls @ 250 mls/hr IV ASDIRECTED [facility] Last Admin: 09/29/20 17:20 Dose: 250 mls/hr Documented by: Sodium Chloride (Normal Saline) 1,000 mls @ 125 mls/hr IV ASDIRECTED [facility] Last Admin: 09/30/20 00:05 Dose: 125 mls/hr Documented by: Cefazolin Sodium 1 gm/ Sodium (Chloride) 50 mls @ 200 mls/hr IV Q8HR [facility] Piperacillin Sod/Tazobactam (Sod 3.375 gm/ Sodium Chloride) 50 mls @ 100 mls/hr IV Q6H [facility] Last Admin: 09/30/20 06:02 Dose: 100 mls/hr Documented by: Vancomycin HCl 1.25 gm/ Sodium (Chloride) 250 mls @ 166.667 mls/hr IV BID [facility] Last Admin: 09/29/20 20:30 Dose: 166.667 mls/hr Documented by: Sterile Water (Sterile Water For Injection) Confirm Administered Dose 20 mls @ as directed .ROUTE .STK-MED ONE Stop: 09/29/20 19:53 Last Admin: 09/29/20 20:01 Dose: Not Given Documented by: Piperacillin/Tazobactam/ (Dextrose 3.375 gm/ Premix) 50 mls @ 100 mls/hr IV Q6H [facility] Last Admin: 09/30/20 13:45 Dose: 100 mls/hr Documented by: Vancomycin HCl 1.25 gm/ Sodium (Chloride) 250 mls @ 166.667 mls/hr IV Q12H [facility] Last Admin: 09/30/20 11:23 Dose: 166.667 mls/hr Documented by: Magnesium Sulfate (Magnesium Sulfate In Water 2 Gm/50 Ml) 2 gm in 50 mls @ 25 mls/hr IV Q6H [facility] Stop: 10/04/20 05:59 Last Admin: 10/03/20 03:29 Dose: 25 mls/hr Documented by: Potassium Phosphate 15 mmol/ (Premix) 250 mls @ 84 mls/hr IV Q3H [facility] Stop: 10/01/20 20:59 Last Admin: 10/01/20 19:06 Dose: 84 mls/hr Documented by: Sodium Chloride (Normal Saline) 500 mls @ 500 mls/hr IV ONETIME ONE Stop: 10/01/20 16:59 Last Admin: 10/01/20 16:53 Dose: 500 mls/hr Documented by: Ketorolac Tromethamine (Ketorolac 30 Mg/Ml Sdv) 30 mg IVPUSH ONETIME ONE Stop: 10/03/20 12:46 Last Admin: 10/03/20 13:07 Dose: 30 mg Documented by: Lidocaine HCl (Lidocaine 2% Jelly 10 Ml Urojet) 10 ml MUCMEM ONETIME ONE Stop: 09/30/20 19:33 Last Admin: 09/30/20 19:40 Dose: 10 ml Documented by: Melatonin (Melatonin 3 Mg Tab) 3 mg PO BEDTIME [facility] Last Admin: 09/30/20 20:52 Dose: 3 mg Documented by: Oxycodone HCl (Oxycodone 5 Mg Tab) 5 mg PO Q4H PRN PRN Reason: Pain (moderate 4-6) Last Admin: 10/03/20 05:28 Dose: 5 mg Documented by: Propofol (Propofol 200 Mg/20 Ml Sdv) Confirm Administered Dose 200 mg .ROUTE .STK-MED ONE Stop: 09/30/20 09:34 Tizanidine HCl (Tizanidine 4 Mg Tab) 2 mg PO Q6H PRN PRN Reason: Muscle Spasm - Painful Last Admin: 10/03/20 08:27 Dose: 2 mg Documented by: Vancomycin HCl (Vancomycin 1 Gm Sdv) 1 gm IV .PHARMACY TO DOSE [facility] Stop: 09/30/20 07:30 - Exam Urinary Catheter Total Time: 1Days 3Hours General: Cooperative, No Acute Distress Extremities: Pedal Edema, Leg Pain (left ), Redness Peripheral Pulses: 2+: Posterior Tibial (L) Skin: Dry, Intact Wound/Incisions: Dressing Dry and Intact, No Drainage Neurological: No New Focal Deficit Psy/Mental Status: Normal Affect Sepsis Event Note - Evaluation Sepsis Screening Result: No Definite Risk - Focused Exam Vital Signs: Vital Signs Temp Pulse Resp BP Pulse Ox 10/05/20 07:54 97.7 F 67 18 170/97 H 96 10/05/20 06:29 97.1 F 87 16 178/85 H 100 10/05/20 03:00 96.7 F L 84 16 168/74 H 96 10/05/20 01:16 96.2 F L 83 18 174/74 H 96 Consult PN Assessment/Plan Procedures: Procedures ASSAY OF CK (CPK) (10/05/14) ASSAY OF NATRIURETIC PEPTIDE (05/13/20) ASSAY OF TROPONIN QUANT (05/13/20) BLOOD GASES ANY COMBINATION (05/13/20) C-REACTIVE PROTEIN (05/13/20) CHEST X-RAY 1 VIEW FRONTAL (10/05/14) COMPLETE CBC AUTOMATED (05/13/20) COMPLETE CBC W/AUTO DIFF WBC (10/05/14) COMPREHEN METABOLIC PANEL (05/13/20) CT HEAD/BRAIN W/O DYE (05/13/20) ELECTROCARDIOGRAM REPORT (05/13/20) ELECTROCARDIOGRAM TRACING (10/05/14) EMERGENCY DEPT VISIT (05/13/20) EMERGENCY DEPT VISIT (05/13/20) FIBRIN DEGRADATION QUANT (09/22/20) PROTHROMBIN TIME (05/13/20) ROUTINE VENIPUNCTURE (05/13/20) THER/PROPH/DIAG IV INF ADDON (10/05/14) THER/PROPH/DIAG IV INF INIT (10/05/14) THROMBOPLASTIN TIME PARTIAL (10/05/14) TX/PROPH/DG ADDL SEQ IV INF (10/05/14) URINALYSIS AUTO W/SCOPE (05/13/20) X-RAY EXAM CHEST 1 VIEW (05/13/20) (1) Left leg injury SNOMED Code(s): 30515611868863929 Code(s): S89.92XA - UNSPECIFIED INJURY OF LEFT LOWER LEG, INITIAL ENCOUNTER Current Visit: Yes Comment: Joint Manipulation under anesthesia Qualifiers: Encounter type: initial encounter Qualified Code(s): S89.92XA - Unspecified injury of left lower leg, initial encounter Problem List Initiated/Reviewed/Updated: Yes Plan: Assessment: Patient has participated in PT for the past few days, increasing ambulation and weight bearing abilities on LLE. Transferred from chair to bed with FWW and x2 min-assist this morning. Endorsed pain is still present in LLE, mostly at distal calf and ankle, but this seems much improved from level of pain he was experiencing at time of admission. Endorsed less pain at L knee, demonstrates active flexion and extension at knee joint. Remains tender to touch over distal calf, although less tender than initial assessment. Erythema remains present on [place], no warmth to touch along erythematous region. Does not appear infectious. Ecchymotic along entirety of LLE. + edema of LLE compared to RLE. Tibialis posterior appreciated, 2+. Patient continues to have confusion, although improved from his confusion and disorientation 2 days prior. Pain has been well controlled with extra strength Tylenol over the past 24 hours. Alex were scheduled to be removed at clinic apt yesterday per . Upon discussion with Dr. Jefferson and patient/, agreeable to staple removal this morning prior to discharge. Patient was able to roll on side and tolerated staple removal well. 10 alex were removed from L calf. Steri strips applied over incision and new dressing intact above. Plan: * Staple removal performed this morning. * Hospitalist to continue medical management. * Anticipate participation with PT today to progress ambulation abilities. * Continue with current pain regimen. * Anticipate discharge to SNF facility for additional rehab for LLE when medically stable.
[2020-10-05] MEDS: Lisinopril 20 MG Tab PO SCH (09:11)
[2020-10-05] MEDS: Spironolactone 25 MG Tab PO SCH (09:14)
[2020-10-05] MEDS: Metoprolol Succinate 50 MG Tab.ER PO SCH (09:14)
[2020-10-05] MEDS: Allopurinol 100 MG Tab PO SCH (09:14)
[2020-10-05] MEDS: Aspirin 81 MG Tab.Chew PO SCH (09:15)
[2020-10-05] MEDS: tiZANidine 2 MG Tab PO PRN (09:23)
[2020-10-05] MEDS ORDERED: Divalproex Sodium Delayed-Release 250 MG Tab.CR PO ONE (12:50)
[2020-10-05] MEDS ORDERED: Divalproex Sodium Delayed-Release 125 MG Cap.Sprink PO ONE (13:15)
--- NOTE | 2020-10-05 13:32 | PCM.PN ---
- General Info Date of Service: 10/05/20 Subjective Update: No acute events overnight and he has been more alert and interactive this morning. He did seem to go downhill some after receiving Zanaflex this morning. More alert and interactive later in the day. He is complaining of pain in the left lower leg but thinks it is getting a little better each day. Still has a fair amount of swelling in the distal half of the lower leg. Difficulty with weightbearing midmorning but earlier in the morning and later in the day has done better. Functional Status: Reports: Pain Controlled, Tolerating Diet - Review of Systems Neurological: Reports: Confusion - Patient Data Vitals - Most Recent: Last Vital Signs Temp 36.1 C 10/05/20 11:00 Pulse 87 10/05/20 11:00 Resp 16 10/05/20 11:00 BP 130/72 10/05/20 11:00 Pulse Ox 98 10/05/20 11:00 Weight - Most Recent: 94.8 kg I&O - Last 24 Hours: Intake & Output 10/04/20 10/05/20 10/05/20 22:59 06:59 14:59 Intake Total 600 Output Total 2450 1175 450 Balance -1850 -1175 -450 Med Orders - Current: Current Medications Acetaminophen (Acetaminophen 500 Mg Tab) 1,000 mg PO TID [facility] Last Admin: 10/05/20 09:14 Dose: Not Given Documented by: Allopurinol (Allopurinol 100 Mg Tab) 200 mg PO DAILY [facility] Last Admin: 10/05/20 09:14 Dose: 200 mg Documented by: Aspirin (Aspirin 81 Mg Tab.Chew) 81 mg PO DAILY [facility] Last Admin: 10/05/20 09:15 Dose: 81 mg Documented by: Haloperidol Lactate (Haloperidol Lactate 5 Mg/Ml Sdv) 2 mg IV Q2H PRN PRN Reason: AGITATION Last Admin: 10/03/20 11:00 Dose: 2 mg Documented by: Ibuprofen (Ibuprofen 600 Mg Tab) 600 mg PO Q6H PRN PRN Reason: Pain Lisinopril (Lisinopril 20 Mg Tab) 20 mg PO DAILY [facility] Last Admin: 10/05/20 09:11 Dose: 20 mg Documented by: Melatonin (Melatonin 3 Mg Tab) 9 mg PO BEDTIME [facility] Last Admin: 10/04/20 21:07 Dose: 9 mg Documented by: Methotrexate (Methotrexate 2.5 Mg Tab) 10 mg PO Q7D [facility] Metoprolol Succinate (Metoprolol Succinate 50 Mg Tab.Er) 50 mg PO DAILY [facility] Last Admin: 10/05/20 09:14 Dose: 50 mg Documented by: Ondansetron HCl (Ondansetron 4 Mg/2 Ml Sdv) 4 mg IV Q4H PRN PRN Reason: Nausea/Vomiting Polyethylene Glycol (Polyethylene Glycol 3350 Powder 17 Gm Packet) 17 gm PO DAILY PRN PRN Reason: Constipation Last Admin: 10/03/20 20:54 Dose: 17 gm Documented by: Rivaroxaban ([facility] 10 Mg Tab) [facility] Sodium Chloride (Sodium Chloride 0.9% 10 Ml Syringe) 10 ml FLUSH ASDIRECTED PRN PRN Reason: Keep Vein Open Spironolactone (Spironolactone 25 Mg Tab) 25 mg PO DAILY [facility] Last Admin: 10/05/20 09:14 Dose: 25 mg Documented by: Tamsulosin HCl (Tamsulosin 0.4 Mg Cap.Er) 0.4 mg PO BEDTIME [facility] Last Admin: 10/04/20 21:07 Dose: 0.4 mg Documented by: Tramadol HCl (Tramadol 50 Mg Tab) 50 mg PO Q6H PRN PRN Reason: Pain (severe 7-10) Discontinued Medications Acetaminophen (Acetaminophen 325 Mg Tab) 650 mg PO Q4H PRN PRN Reason: Pain (Mild 1-3)/fever Last Admin: 10/03/20 05:28 Dose: 650 mg Documented by: Hydrocodone Bitart/Acetaminophen (Acetaminophen/Hydrocodone 325-5 Mg Tab) 1 tab PO Q4H PRN PRN Reason: Pain Hydrocodone Bitart/Acetaminophen (Acetaminophen/Hydrocodone 325-5 Mg Tab) 1 - 2 tab PO Q4H PRN PRN Reason: Pain Last Admin: 10/03/20 17:11 Dose: 1 tab Documented by: Cyclobenzaprine HCl (Cyclobenzaprine 10 Mg Tab) 10 mg PO Q8H PRN PRN Reason: Spasms Last Admin: 10/03/20 01:28 Dose: 10 mg Documented by: Divalproex Sodium (Divalproex Sodium Delayed-Release 250 Mg Tab.Cr) 250 mg PO BIDMEALS [facility] Last Admin: 10/04/20 08:10 Dose: 250 mg Documented by: Divalproex Sodium (Divalproex Sodium Delayed-Release 125 Mg Cap.Sprink) 125 mg PO ONETIME ONE Stop: 10/05/20 13:16 Fentanyl (Fentanyl 100 Mcg/2 Ml Sdv) Confirm Administered Dose 100 mcg .ROUTE .STK-MED ONE Stop: 09/30/20 09:34 Furosemide (Furosemide 20 Mg/2 Ml Vial) 20 mg IV ONETIME ONE Stop: 10/01/20 10:01 Last Admin: 10/01/20 10:26 Dose: 20 mg Documented by: Gabapentin (Gabapentin 300 Mg Cap) 300 mg PO TID [facility] Last Admin: 10/03/20 14:21 Dose: Not Given Documented by: Haloperidol Lactate (Haloperidol Lactate 5 Mg/Ml Sdv) 1 mg IV Q2H PRN PRN Reason: AGITATION Last Admin: 10/02/20 09:28 Dose: 1 mg Documented by: Hydromorphone HCl (Hydromorphone 0.5 Mg/0.5 Ml Syringe) 0.5 mg IVPUSH Q2H PRN PRN Reason: Pain (severe 7-10) Last Admin: 09/30/20 11:15 Dose: 0.5 mg Documented by: Hydromorphone HCl (Hydromorphone 0.5 Mg/0.5 Ml Syringe) 0.5 - 1 mg IVPUSH Q1H PRN PRN Reason: Pain (severe 7-10) Last Admin: 10/01/20 09:53 Dose: 1 mg Documented by: Hydromorphone HCl (Hydromorphone 0.5 Mg/0.5 Ml Syringe) 0.5 mg IVPUSH Q2H PRN PRN Reason: Breakthrough Pain Last Admin: 10/03/20 11:16 Dose: 0.5 mg Documented by: Cefazolin Sodium 1 gm/ Sodium (Chloride) 50 mls @ 100 mls/hr IV ONETIME ONE Stop: 09/29/20 17:32 Last Admin: 09/29/20 17:25 Dose: 100 mls/hr Documented by: Sodium Chloride (Normal Saline) 1,000 mls @ 250 mls/hr IV ASDIRECTED [facility] Last Admin: 09/29/20 17:20 Dose: 250 mls/hr Documented by: Sodium Chloride (Normal Saline) 1,000 mls @ 125 mls/hr IV ASDIRECTED [facility] Last Admin: 09/30/20 00:05 Dose: 125 mls/hr Documented by: Cefazolin Sodium 1 gm/ Sodium (Chloride) 50 mls @ 200 mls/hr IV Q8HR [facility] Piperacillin Sod/Tazobactam (Sod 3.375 gm/ Sodium Chloride) 50 mls @ 100 mls/hr IV Q6H [facility] Last Admin: 09/30/20 06:02 Dose: 100 mls/hr Documented by: Vancomycin HCl 1.25 gm/ Sodium (Chloride) 250 mls @ 166.667 mls/hr IV BID [facility] Last Admin: 09/29/20 20:30 Dose: 166.667 mls/hr Documented by: Sterile Water (Sterile Water For Injection) Confirm Administered Dose 20 mls @ as directed .ROUTE .STK-MED ONE Stop: 09/29/20 19:53 Last Admin: 09/29/20 20:01 Dose: Not Given Documented by: Piperacillin/Tazobactam/ (Dextrose 3.375 gm/ Premix) 50 mls @ 100 mls/hr IV Q6H [facility] Last Admin: 09/30/20 13:45 Dose: 100 mls/hr Documented by: Vancomycin HCl 1.25 gm/ Sodium (Chloride) 250 mls @ 166.667 mls/hr IV Q12H [facility] Last Admin: 09/30/20 11:23 Dose: 166.667 mls/hr Documented by: Magnesium Sulfate (Magnesium Sulfate In Water 2 Gm/50 Ml) 2 gm in 50 mls @ 25 mls/hr IV Q6H [facility] Stop: 10/04/20 05:59 Last Admin: 10/03/20 03:29 Dose: 25 mls/hr Documented by: Potassium Phosphate 15 mmol/ (Premix) 250 mls @ 84 mls/hr IV Q3H [facility] Stop: 10/01/20 20:59 Last Admin: 10/01/20 19:06 Dose: 84 mls/hr Documented by: Sodium Chloride (Normal Saline) 500 mls @ 500 mls/hr IV ONETIME ONE Stop: 10/01/20 16:59 Last Admin: 10/01/20 16:53 Dose: 500 mls/hr Documented by: Ketorolac Tromethamine (Ketorolac 30 Mg/Ml Sdv) 30 mg IVPUSH ONETIME ONE Stop: 10/03/20 12:46 Last Admin: 10/03/20 13:07 Dose: 30 mg Documented by: Lidocaine HCl (Lidocaine 2% Jelly 10 Ml Urojet) 10 ml MUCMEM ONETIME ONE Stop: 09/30/20 19:33 Last Admin: 09/30/20 19:40 Dose: 10 ml Documented by: Melatonin (Melatonin 3 Mg Tab) 3 mg PO BEDTIME [facility] Last Admin: 09/30/20 20:52 Dose: 3 mg Documented by: Oxycodone HCl (Oxycodone 5 Mg Tab) 5 mg PO Q4H PRN PRN Reason: Pain (moderate 4-6) Last Admin: 10/03/20 05:28 Dose: 5 mg Documented by: Propofol (Propofol 200 Mg/20 Ml Sdv) Confirm Administered Dose 200 mg .ROUTE .STK-MED ONE Stop: 09/30/20 09:34 Tizanidine HCl (Tizanidine 4 Mg Tab) 2 mg PO Q6H PRN PRN Reason: Muscle Spasm - Painful Last Admin: 10/03/20 08:27 Dose: 2 mg Documented by: Tizanidine HCl (Tizanidine 2 Mg Tab) 1 mg PO Q6H PRN PRN Reason: Muscle Spasm - Painful Last Admin: 10/05/20 09:23 Dose: 1 mg Documented by: Vancomycin HCl (Vancomycin 1 Gm Sdv) 1 gm IV .PHARMACY TO DOSE [facility] Stop: 09/30/20 07:30 - Exam Quality Assessment: No: Supplemental Oxygen Urinary Catheter Total Time: 1Days 3Hours General: Alert, Oriented, Cooperative, No Acute Distress Lungs: Normal Respiratory Effort GI/Abdominal Exam: Soft, No Distention Extremities: Pedal Edema (right ankle area ), Increased Warmth (right lower leg ) Skin: Warm, Dry Wound/Incisions: Healing Well, No Drainage - Patient Data Result Diagrams: 10/04/20 05:00 10/04/20 05:00 Sepsis Event Note - Evaluation Sepsis Screening Result: No Definite Risk - Focused Exam Vital Signs: Vital Signs Temp Pulse Pulse Resp BP BP Pulse Ox 10/05/20 11:00 36.1 C 87 16 130/72 98 10/05/20 09:14 86 151/71 H 10/05/20 09:11 151/71 H 10/05/20 07:54 36.5 C 67 18 170/97 H 96 10/05/20 06:29 36.2 C 87 16 178/85 H 100 10/05/20 03:00 35.9 C L 84 16 168/74 H 96 - Problem List Review Problem List Initiated/Reviewed/Updated: Yes - My Orders Last 24 Hours: My Active Orders 10/05/20 13:30 Ibuprofen [Motrin] 600 mg PO Q6H PRN - Plan Plan:: ASSESSMENT AND PLAN - INJURY TO THE LEFT LOWER LEG WITH HEMATOMA-status post surgical debridement by Dr. Pearson. Difficulty with pain control and concerned that his pain medications are leading to the hyperactive delirium. Steadily improving with pain control and fortunately we have been able to avoid narcotics and now will be discontinuing the muscle relaxer. -Scheduled acetaminophen, as needed ibuprofen and as a last resort tramadol -Orthopedic consultation appreciated -Postoperative care per Dr. Pearson -Continue splint and Anibal wrap to the left lower extremity HYPERACTIVE DELIRIUM-agitation seems to finally be resolving and he is nearly back to baseline. -Melatonin 9 mg p.o. nightly -Limit narcotics and other medications that could potentially increase delirium Peripheral vascular disease-occlusion of the left proximal superficial femoral artery noted with ultrasound. There was some collateral flow noted with reconstitution of the popliteal artery though monophasic waveforms were noted there. This was discussed with vascular surgery at [facility] in [place]. They did not feel there was an urgent need for intervention at this time and recommended medical management and outpatient follow-up. Chronic atrial fibrillation-rate controlled at this time. -Continue metoprolol -Rivaroxaban on hold MAINTENANCE ISSUES -DVT prophylaxis; unable to use pharmacological means because of recent bleeding and hematoma -GI prophylaxis; not indicated -Bowser catheter; not indicated -Nutrition; regular diet DISPOSITION-anticipate discharge to home versus subacute rehab after the hospital stay. Edgar Muse MD
[2020-10-05] MEDS: Ibuprofen 600 MG Tab PO PRN (13:43)
--- NOTE | 2020-10-05 14:16 | OR ---
DATE OF PROCEDURE: 09/30/2020 SURGEON: Quinton Pearson MD PREOPERATIVE DIAGNOSIS: Developing infection and ongoing pain to left knee and ankle. POSTOPERATIVE DIAGNOSIS: Developing infection and ongoing pain to left knee and ankle. PROCEDURE PERFORMED: Manipulation of left knee and ankle under anesthesia ([id number]). ANESTHESIA: Local plus IV sedation. INDICATION FOR PROCEDURE: An 80-year-old status post drainage of a tense hematoma along with fasciotomy and ligation of an arterial branch coming off the posterior tibial artery who has had continued pain postoperatively and appears to be developing contractures in the left knee and ankle. Given this and the amount of pain that he is having, it would be untenable to try to stable without anesthesia. The plan is to proceed with manipulation of the knee and ankle under anesthesia and then place some braces so as to keep these in a neutral position. The potential risks of the procedure were reviewed with the patient's , and she wishes to proceed. The patient himself is quite confused at this point, so informed consent with the is necessary. DETAILS OF PROCEDURE: The patient was taken to the operating room, and after IV sedation was administered, initially the dorsalis pedis and posterior tibial pulses were assessed by palpation and Doppler. Neither of these were overtly palpable, probably due to edema in all likelihood and also noted to have monophasic waveform on Doppler indicating some probable degree of arterial insufficiency to the lower leg. At that point, the ankle followed by the knee were gradually manipulated back into a noncontracted, fully dorsiflexed and extended position with the ankle and knee respectively. Once this was accomplished, braces which had been provided by Physical Therapy were applied, these being an ankle boot to keep in the ankle in a neutral position, and a knee immobilizer for keeping the knee fully extended. Once these were in place, the patient was taken to the recovery room. There were no evident complications. We will keep the immobilizers on for the weekend and plan to obtain an arterial duplex scan on Friday to assess the extent of arterial insufficiency. By history, the patient had been riding a bicycle fairly well, so the Doppler findings inconsistent with that history, but we will get a more definitive view of that with the duplex scan on Friday. Quinton Pearson MD /[id number]
[2020-10-05] MEDS: Melatonin 3 MG Tab PO SCH (21:43)
[2020-10-05] MEDS: Tamsulosin 0.4 MG Cap.ER PO SCH (21:43)
[2020-10-06] MEDS: Ibuprofen 600 MG Tab PO PRN ×2 (00:06→13:04)
--- NOTE | 2020-10-06 07:53 | PN ---
DATE OF SERVICE: 10/04/2020 SUBJECTIVE: Horacio has had no changes overnight. Remains to be confused. Vital signs are stable. OBJECTIVE: GENERAL: Horacio is an 80-year-old male. He is quite confused. VITAL SIGNS: TPR 96.5, 55, 16. Blood pressure 134/94. HEART: Regular rate and rhythm. LUNGS: Clear. EXTREMITIES: Left leg alex intact. No swelling or drainage. ASSESSMENT: 1. Ischemia, left leg. 2. Status post evacuation of hematoma. 3. Urinary retention. 4. Uncontrolled pain left leg, resolving. PLAN: 1. Continue with physical therapy and Discharge Planning working on rehabilitation placement. 2. We will evaluate p.r.n. or in a.m. Lynda Haque PA-C /[phone]
[2020-10-06] MEDS: Spironolactone 25 MG Tab PO SCH (08:05)
[2020-10-06] MEDS: Lisinopril 20 MG Tab PO SCH (08:06)
[2020-10-06] MEDS: Aspirin 81 MG Tab.Chew PO SCH (08:06)
[2020-10-06] MEDS: Allopurinol 100 MG Tab PO SCH (08:07)
[2020-10-06] MEDS: Metoprolol Succinate 50 MG Tab.ER PO SCH (08:07)
[2020-10-06] MEDS: Acetaminophen 500 MG Tab PO SCH ×3 (08:07→20:29)
[2020-10-06] MEDS ORDERED: Methotrexate 2.5 MG Tab PO SCH (09:00)
--- NOTE | 2020-10-06 11:38 | PN ---
DATE OF SERVICE: 10/06/2020 SUBJECTIVE: Horacio had his alex out yesterday. Incision Steri-Stripped, left leg. Remains to be quite confused. REVIEW OF SYSTEMS: Remainder of review of systems negative for any pertinent positives and negatives. OBJECTIVE: GENERAL: Son Moralez is an 80-year-old male, quite confused. VITAL SIGNS: TPR: 96.5, 80, 18. Blood pressure 188/89. EXTREMITIES: Left leg has cast on. The incision is Steri-Stripped and healing well. ASSESSMENT: 1. Ischemia of left leg. 2. Status post evacuation of hematoma. 3. Urinary retention. 4. Uncontrolled pain of left leg, resolved. PLAN: 1. Surgery to sign off on patient's care. Will follow up p.r.n. 2. Pending placement in rehab facility. When discharged to follow up with Quinton Pearson MD on 10/18/2020 at 10 a.m. Lynda Haque PA-C /[id number]
--- NOTE | 2020-10-06 12:34 | PCM.CONSN ---
- General Info Date of Service: 10/06/20 Functional Status: Reports: Tolerating Diet, Ambulating (with FWW, x2 assist ), Urinating - Review of Systems Musculoskeletal: Reports: Leg Pain (left ) Neurological: Reports: Confusion Psychiatric: Reports: Confusion - Patient Data Vitals - Most Recent: Last Vital Signs Temp 97.1 F 10/06/20 11:00 Pulse 95 10/06/20 11:00 Resp 18 10/06/20 11:00 BP 131/54 L 10/06/20 11:00 Pulse Ox 99 10/06/20 11:00 Weight - Most Recent: 208 lb 15.971 oz I&O - Last 24 Hours: Intake & Output 10/05/20 10/06/20 10/06/20 22:59 06:59 14:59 Intake Total 500 Output Total 300 700 Balance -300 -200 Med Orders - Current: Current Medications Acetaminophen (Acetaminophen 500 Mg Tab) 1,000 mg PO TID [facility] Last Admin: 10/06/20 08:07 Dose: 1,000 mg Documented by: Allopurinol (Allopurinol 100 Mg Tab) 200 mg PO DAILY [facility] Last Admin: 10/06/20 08:07 Dose: 200 mg Documented by: Aspirin (Aspirin 81 Mg Tab.Chew) 81 mg PO DAILY [facility] Last Admin: 10/06/20 08:06 Dose: 81 mg Documented by: Ibuprofen (Ibuprofen 600 Mg Tab) 600 mg PO Q6H PRN PRN Reason: Pain Last Admin: 10/06/20 00:06 Dose: 600 mg Documented by: Lisinopril (Lisinopril 20 Mg Tab) 20 mg PO DAILY [facility] Last Admin: 10/06/20 08:06 Dose: 20 mg Documented by: Melatonin (Melatonin 3 Mg Tab) 9 mg PO BEDTIME [facility] Last Admin: 10/05/20 21:43 Dose: 9 mg Documented by: Methotrexate (Methotrexate 2.5 Mg Tab) 10 mg PO Q7D [facility] Last Admin: 10/06/20 08:06 Dose: 10 mg Documented by: Metoprolol Succinate (Metoprolol Succinate 50 Mg Tab.Er) 50 mg PO DAILY [facility] Last Admin: 10/06/20 08:07 Dose: 50 mg Documented by: Ondansetron HCl (Ondansetron 4 Mg/2 Ml Sdv) 4 mg IV Q4H PRN PRN Reason: Nausea/Vomiting Polyethylene Glycol (Polyethylene Glycol 3350 Powder 17 Gm Packet) 17 gm PO DAILY PRN PRN Reason: Constipation Last Admin: 10/03/20 20:54 Dose: 17 gm Documented by: Rivaroxaban (Rivaroxaban 10 Mg Tab) 20 mg PO WITHDINSILAS [facility] Sodium Chloride (Sodium Chloride 0.9% 10 Ml Syringe) 10 ml FLUSH ASDIRECTED PRN PRN Reason: Keep Vein Open Spironolactone (Spironolactone 25 Mg Tab) 25 mg PO DAILY [facility] Last Admin: 10/06/20 08:05 Dose: 25 mg Documented by: Tamsulosin HCl (Tamsulosin 0.4 Mg Cap.Er) 0.4 mg PO BEDTIME [facility] Last Admin: 10/05/20 21:43 Dose: 0.4 mg Documented by: Tramadol HCl (Tramadol 50 Mg Tab) 50 mg PO Q6H PRN PRN Reason: Pain (severe 7-10) Discontinued Medications Acetaminophen (Acetaminophen 325 Mg Tab) 650 mg PO Q4H PRN PRN Reason: Pain (Mild 1-3)/fever Last Admin: 10/03/20 05:28 Dose: 650 mg Documented by: Hydrocodone Bitart/Acetaminophen (Acetaminophen/Hydrocodone 325-5 Mg Tab) 1 tab PO Q4H PRN PRN Reason: Pain Hydrocodone Bitart/Acetaminophen (Acetaminophen/Hydrocodone 325-5 Mg Tab) 1 - 2 tab PO Q4H PRN PRN Reason: Pain Last Admin: 10/03/20 17:11 Dose: 1 tab Documented by: Cyclobenzaprine HCl (Cyclobenzaprine 10 Mg Tab) 10 mg PO Q8H PRN PRN Reason: Spasms Last Admin: 10/03/20 01:28 Dose: 10 mg Documented by: Divalproex Sodium (Divalproex Sodium Delayed-Release 250 Mg Tab.Cr) 250 mg PO BIDMEALS [facility] Last Admin: 10/04/20 08:10 Dose: 250 mg Documented by: Divalproex Sodium (Divalproex Sodium Delayed-Release 125 Mg Cap.Sprink) 125 mg PO ONETIME ONE Stop: 10/05/20 13:16 Last Admin: 10/05/20 13:38 Dose: 125 mg Documented by: Fentanyl (Fentanyl 100 Mcg/2 Ml Sdv) Confirm Administered Dose 100 mcg .ROUTE .STK-MED ONE Stop: 09/30/20 09:34 Furosemide (Furosemide 20 Mg/2 Ml Vial) 20 mg IV ONETIME ONE Stop: 10/01/20 10:01 Last Admin: 10/01/20 10:26 Dose: 20 mg Documented by: Gabapentin (Gabapentin 300 Mg Cap) 300 mg PO TID [facility] Last Admin: 10/03/20 14:21 Dose: Not Given Documented by: Haloperidol Lactate (Haloperidol Lactate 5 Mg/Ml Sdv) 1 mg IV Q2H PRN PRN Reason: AGITATION Last Admin: 10/02/20 09:28 Dose: 1 mg Documented by: Haloperidol Lactate (Haloperidol Lactate 5 Mg/Ml Sdv) 2 mg IV Q2H PRN PRN Reason: AGITATION Last Admin: 10/03/20 11:00 Dose: 2 mg Documented by: Hydromorphone HCl (Hydromorphone 0.5 Mg/0.5 Ml Syringe) 0.5 mg IVPUSH Q2H PRN PRN Reason: Pain (severe 7-10) Last Admin: 09/30/20 11:15 Dose: 0.5 mg Documented by: Hydromorphone HCl (Hydromorphone 0.5 Mg/0.5 Ml Syringe) 0.5 - 1 mg IVPUSH Q1H PRN PRN Reason: Pain (severe 7-10) Last Admin: 10/01/20 09:53 Dose: 1 mg Documented by: Hydromorphone HCl (Hydromorphone 0.5 Mg/0.5 Ml Syringe) 0.5 mg IVPUSH Q2H PRN PRN Reason: Breakthrough Pain Last Admin: 10/03/20 11:16 Dose: 0.5 mg Documented by: Cefazolin Sodium 1 gm/ Sodium (Chloride) 50 mls @ 100 mls/hr IV ONETIME ONE Stop: 09/29/20 17:32 Last Admin: 09/29/20 17:25 Dose: 100 mls/hr Documented by: Sodium Chloride (Normal Saline) 1,000 mls @ 250 mls/hr IV ASDIRECTED [facility] Last Admin: 09/29/20 17:20 Dose: 250 mls/hr Documented by: Sodium Chloride (Normal Saline) 1,000 mls @ 125 mls/hr IV ASDIRECTED [facility] Last Admin: 09/30/20 00:05 Dose: 125 mls/hr Documented by: Cefazolin Sodium 1 gm/ Sodium (Chloride) 50 mls @ 200 mls/hr IV Q8HR [facility] Piperacillin Sod/Tazobactam (Sod 3.375 gm/ Sodium Chloride) 50 mls @ 100 mls/hr IV Q6H [facility] Last Admin: 09/30/20 06:02 Dose: 100 mls/hr Documented by: Vancomycin HCl 1.25 gm/ Sodium (Chloride) 250 mls @ 166.667 mls/hr IV BID [facility] Last Admin: 09/29/20 20:30 Dose: 166.667 mls/hr Documented by: Sterile Water (Sterile Water For Injection) Confirm Administered Dose 20 mls @ as directed .ROUTE .STK-MED ONE Stop: 09/29/20 19:53 Last Admin: 09/29/20 20:01 Dose: Not Given Documented by: Piperacillin/Tazobactam/ (Dextrose 3.375 gm/ Premix) 50 mls @ 100 mls/hr IV Q6H [facility] Last Admin: 09/30/20 13:45 Dose: 100 mls/hr Documented by: Vancomycin HCl 1.25 gm/ Sodium (Chloride) 250 mls @ 166.667 mls/hr IV Q12H [facility] Last Admin: 09/30/20 11:23 Dose: 166.667 mls/hr Documented by: Magnesium Sulfate (Magnesium Sulfate In Water 2 Gm/50 Ml) 2 gm in 50 mls @ 25 mls/hr IV Q6H [facility] Stop: 10/04/20 05:59 Last Admin: 10/03/20 03:29 Dose: 25 mls/hr Documented by: Potassium Phosphate 15 mmol/ (Premix) 250 mls @ 84 mls/hr IV Q3H [facility] Stop: 10/01/20 20:59 Last Admin: 10/01/20 19:06 Dose: 84 mls/hr Documented by: Sodium Chloride (Normal Saline) 500 mls @ 500 mls/hr IV ONETIME ONE Stop: 10/01/20 16:59 Last Admin: 10/01/20 16:53 Dose: 500 mls/hr Documented by: Ketorolac Tromethamine (Ketorolac 30 Mg/Ml Sdv) 30 mg IVPUSH ONETIME ONE Stop: 10/03/20 12:46 Last Admin: 10/03/20 13:07 Dose: 30 mg Documented by: Lidocaine HCl (Lidocaine 2% Jelly 10 Ml Urojet) 10 ml MUCMEM ONETIME ONE Stop: 09/30/20 19:33 Last Admin: 09/30/20 19:40 Dose: 10 ml Documented by: Melatonin (Melatonin 3 Mg Tab) 3 mg PO BEDTIME [facility] Last Admin: 09/30/20 20:52 Dose: 3 mg Documented by: Oxycodone HCl (Oxycodone 5 Mg Tab) 5 mg PO Q4H PRN PRN Reason: Pain (moderate 4-6) Last Admin: 10/03/20 05:28 Dose: 5 mg Documented by: Propofol (Propofol 200 Mg/20 Ml Sdv) Confirm Administered Dose 200 mg .ROUTE .STK-MED ONE Stop: 09/30/20 09:34 Tizanidine HCl (Tizanidine 4 Mg Tab) 2 mg PO Q6H PRN PRN Reason: Muscle Spasm - Painful Last Admin: 10/03/20 08:27 Dose: 2 mg Documented by: Tizanidine HCl (Tizanidine 2 Mg Tab) 1 mg PO Q6H PRN PRN Reason: Muscle Spasm - Painful Last Admin: 10/05/20 09:23 Dose: 1 mg Documented by: Vancomycin HCl (Vancomycin 1 Gm Sdv) 1 gm IV .PHARMACY TO DOSE ОЛЬГА Stop: 09/30/20 07:30 - Exam Urinary Catheter Total Time: 1Days 3Hours General: No Acute Distress Extremities: Pedal Edema, Leg Pain (left ) Skin: Dry, Intact Wound/Incisions: Dressing Dry and Intact, No Drainage, Erythema Improving Sepsis Event Note - Evaluation Sepsis Screening Result: No Definite Risk - Focused Exam Vital Signs: Vital Signs Temp Pulse Pulse Resp BP BP BP 10/06/20 11:00 97.1 F 95 18 131/54 L 10/06/20 08:07 67 120/72 10/06/20 08:06 120/72 10/06/20 07:00 95.9 F L 67 18 120/72 10/06/20 01:50 96.5 F L 80 18 188/89 H Pulse Ox 10/06/20 11:00 99 10/06/20 08:07 10/06/20 08:06 10/06/20 07:00 99 10/06/20 01:50 99 Consult PN Assessment/Plan Procedures: Procedures ASSAY OF CK (CPK) (10/05/14) ASSAY OF MAGNESIUM (09/26/20) ASSAY OF NATRIURETIC PEPTIDE (05/13/20) ASSAY OF PHOSPHORUS (09/26/20) ASSAY OF TROPONIN QUANT (05/13/20) BLOOD GASES ANY COMBINATION (05/13/20) C-REACTIVE PROTEIN (05/13/20) CHEST X-RAY 1 VIEW FRONTAL (10/05/14) COMPLETE CBC AUTOMATED (09/26/20) COMPLETE CBC W/AUTO DIFF WBC (10/05/14) COMPREHEN METABOLIC PANEL (05/13/20) CT HEAD/BRAIN W/O DYE (05/13/20) CULTR BACTERIA EXCEPT BLOOD (09/26/20) CULTURE OTHR SPECIMN AEROBIC (09/26/20) DECOMPRESSION OF LOWER LEG (09/26/20) DRAIN LOWER LEG LESION (09/26/20) ELECTROCARDIOGRAM REPORT (05/13/20) ELECTROCARDIOGRAM TRACING (09/26/20) EMERGENCY DEPT VISIT (05/13/20) EMERGENCY DEPT VISIT (05/13/20) FIBRIN DEGRADATION QUANT (09/22/20) METABOLIC PANEL TOTAL CA (09/26/20) PROTHROMBIN TIME (05/13/20) REPAIR BLOOD VESSEL LESION (09/26/20) ROUTINE VENIPUNCTURE (09/26/20) SMEAR GRAM STAIN (09/26/20) THER/PROPH/DIAG IV INF ADDON (10/05/14) THER/PROPH/DIAG IV INF INIT (10/05/14) THROMBOPLASTIN TIME PARTIAL (10/05/14) TISSUE EXAM BY PATHOLOGIST (09/26/20) TX/PROPH/DG ADDL SEQ IV INF (10/05/14) URINALYSIS AUTO W/SCOPE (05/13/20) X-RAY EXAM CHEST 1 VIEW (05/13/20) (1) Left leg injury SNOMED Code(s): 20497360423884636 Code(s): S89.92XA - UNSPECIFIED INJURY OF LEFT LOWER LEG, INITIAL ENCOUNTER Current Visit: Yes Comment: Joint Manipulation under anesthesia Qualifiers: Encounter type: initial encounter Qualified Code(s): S89.92XA - Unspecified injury of left lower leg, initial encounter Problem List Initiated/Reviewed/Updated: Yes Plan: Assessment: Patient remains confused today, although leg pain appears to be improving. Patient made great progress with PT yesterday, ambulating 114 ft with FWW and x2 assist. Gait pattern altered due to pain in left leg. Patient endorsed continued pain in distal left leg along calf and ankle with ambulation and at rest, although patients ambulation has improved and ability to touch leg without significant discomfort has resolved. Is able to passively move left knee without significant discomfort, but limited knee motion with gait. Mary Ann were removed yesterday, dressing dry and intact on back of left calf. Erythema over [place] has significantly decreased in size. No warmth to touch. Remains ecchymotic along entirety of left lower extremity. Edema of L LE improving. Capillary refill intact, <3 seconds. Remains tender to palpation along ankle and distal calf, although significantly less tender than he has been in days prior. Plan: * Patient may remain WBAT on L LE without immobilizing device. * Orthopedic service will sign off at this time, hospitalist to continue medical management of this patient. * Please reach out to the orthopedic department if left leg pain worsens. * Anticipate discharge to SNF, will benefit from additional physical therapy for left lower extremity.
--- NOTE | 2020-10-06 14:00 | PCM.PN ---
- General Info Date of Service: 10/06/20 Subjective Update: No acute events overnight. Patient reports that he is feeling a little better today with less pain in the left lower leg. Pain is still moderate. Pain is worse with activity and his foot and distal lower leg are the most tender and swollen. Mild difficulty with confusion overnight but doing okay today. Seems to be a little better each day. We do not have a safe discharge plan at this time. Functional Status: Reports: Pain Controlled, Tolerating Diet - Review of Systems General: Reports: Weakness Musculoskeletal: Reports: Leg Pain (left lower leg ) - Patient Data Vitals - Most Recent: Last Vital Signs Temp 36.2 C 10/06/20 11:00 Pulse 95 10/06/20 11:00 Resp 18 10/06/20 11:00 BP 131/54 L 10/06/20 11:00 Pulse Ox 99 10/06/20 11:00 Weight - Most Recent: 94.8 kg I&O - Last 24 Hours: Intake & Output 10/05/20 10/06/20 10/06/20 22:59 06:59 14:59 Intake Total 500 Output Total 300 700 Balance -300 -200 Med Orders - Current: Current Medications Acetaminophen (Acetaminophen 500 Mg Tab) 1,000 mg PO TID [facility] Last Admin: 10/06/20 13:09 Dose: 1,000 mg Documented by: Allopurinol (Allopurinol 100 Mg Tab) 200 mg PO DAILY [facility] Last Admin: 10/06/20 08:07 Dose: 200 mg Documented by: Aspirin (Aspirin 81 Mg Tab.Chew) 81 mg PO DAILY [facility] Last Admin: 10/06/20 08:06 Dose: 81 mg Documented by: Ibuprofen (Ibuprofen 600 Mg Tab) 600 mg PO Q6H PRN PRN Reason: Pain Last Admin: 10/06/20 13:04 Dose: 600 mg Documented by: Lisinopril (Lisinopril 20 Mg Tab) 20 mg PO DAILY [facility] Last Admin: 10/06/20 08:06 Dose: 20 mg Documented by: Melatonin (Melatonin 3 Mg Tab) 9 mg PO BEDTIME [facility] Last Admin: 10/05/20 21:43 Dose: 9 mg Documented by: Methotrexate (Methotrexate 2.5 Mg Tab) 10 mg PO Q7D [facility] Last Admin: 10/06/20 08:06 Dose: 10 mg Documented by: Metoprolol Succinate (Metoprolol Succinate 50 Mg Tab.Er) 50 mg PO DAILY [facility] Last Admin: 10/06/20 08:07 Dose: 50 mg Documented by: Ondansetron HCl (Ondansetron 4 Mg/2 Ml Sdv) 4 mg IV Q4H PRN PRN Reason: Nausea/Vomiting Polyethylene Glycol (Polyethylene Glycol 3350 Powder 17 Gm Packet) 17 gm PO DAILY PRN PRN Reason: Constipation Last Admin: 10/03/20 20:54 Dose: 17 gm Documented by: Rivaroxaban (Rivaroxaban 10 Mg Tab) 20 mg PO WITHDINNER [facility] Sodium Chloride (Sodium Chloride 0.9% 10 Ml Syringe) 10 ml FLUSH ASDIRECTED PRN PRN Reason: Keep Vein Open Spironolactone (Spironolactone 25 Mg Tab) 25 mg PO DAILY [facility] Last Admin: 10/06/20 08:05 Dose: 25 mg Documented by: Tamsulosin HCl (Tamsulosin 0.4 Mg Cap.Er) 0.4 mg PO BEDTIME [facility] Last Admin: 10/05/20 21:43 Dose: 0.4 mg Documented by: Tramadol HCl (Tramadol 50 Mg Tab) 50 mg PO Q6H PRN PRN Reason: Pain (severe 7-10) Discontinued Medications Acetaminophen (Acetaminophen 325 Mg Tab) 650 mg PO Q4H PRN PRN Reason: Pain (Mild 1-3)/fever Last Admin: 10/03/20 05:28 Dose: 650 mg Documented by: Hydrocodone Bitart/Acetaminophen (Acetaminophen/Hydrocodone 325-5 Mg Tab) 1 tab PO Q4H PRN PRN Reason: Pain Hydrocodone Bitart/Acetaminophen (Acetaminophen/Hydrocodone 325-5 Mg Tab) 1 - 2 tab PO Q4H PRN PRN Reason: Pain Last Admin: 10/03/20 17:11 Dose: 1 tab Documented by: Cyclobenzaprine HCl (Cyclobenzaprine 10 Mg Tab) 10 mg PO Q8H PRN PRN Reason: Spasms Last Admin: 10/03/20 01:28 Dose: 10 mg Documented by: Divalproex Sodium (Divalproex Sodium Delayed-Release 250 Mg Tab.Cr) 250 mg PO BIDMEALS [facility] Last Admin: 10/04/20 08:10 Dose: 250 mg Documented by: Divalproex Sodium (Divalproex Sodium Delayed-Release 125 Mg Cap.Sprink) 125 mg PO ONETIME ONE Stop: 10/05/20 13:16 Last Admin: 10/05/20 13:38 Dose: 125 mg Documented by: Fentanyl (Fentanyl 100 Mcg/2 Ml Sdv) Confirm Administered Dose 100 mcg .ROUTE .STK-MED ONE Stop: 09/30/20 09:34 Furosemide (Furosemide 20 Mg/2 Ml Vial) 20 mg IV ONETIME ONE Stop: 10/01/20 10:01 Last Admin: 10/01/20 10:26 Dose: 20 mg Documented by: Gabapentin (Gabapentin 300 Mg Cap) 300 mg PO TID [facility] Last Admin: 10/03/20 14:21 Dose: Not Given Documented by: Haloperidol Lactate (Haloperidol Lactate 5 Mg/Ml Sdv) 1 mg IV Q2H PRN PRN Reason: AGITATION Last Admin: 10/02/20 09:28 Dose: 1 mg Documented by: Haloperidol Lactate (Haloperidol Lactate 5 Mg/Ml Sdv) 2 mg IV Q2H PRN PRN Reason: AGITATION Last Admin: 10/03/20 11:00 Dose: 2 mg Documented by: Hydromorphone HCl (Hydromorphone 0.5 Mg/0.5 Ml Syringe) 0.5 mg IVPUSH Q2H PRN PRN Reason: Pain (severe 7-10) Last Admin: 09/30/20 11:15 Dose: 0.5 mg Documented by: Hydromorphone HCl (Hydromorphone 0.5 Mg/0.5 Ml Syringe) 0.5 - 1 mg IVPUSH Q1H PRN PRN Reason: Pain (severe 7-10) Last Admin: 10/01/20 09:53 Dose: 1 mg Documented by: Hydromorphone HCl (Hydromorphone 0.5 Mg/0.5 Ml Syringe) 0.5 mg IVPUSH Q2H PRN PRN Reason: Breakthrough Pain Last Admin: 10/03/20 11:16 Dose: 0.5 mg Documented by: Cefazolin Sodium 1 gm/ Sodium (Chloride) 50 mls @ 100 mls/hr IV ONETIME ONE Stop: 09/29/20 17:32 Last Admin: 09/29/20 17:25 Dose: 100 mls/hr Documented by: Sodium Chloride (Normal Saline) 1,000 mls [facility] Last Admin: 09/29/20 17:20 Dose: 250 mls/hr Documented by: Sodium Chloride (Normal Saline) 1,000 mls @ 125 mls/hr IV ASDIRECTED [facility] Last Admin: 09/30/20 00:05 Dose: 125 mls/hr Documented by: Cefazolin Sodium 1 gm/ Sodium (Chloride) 50 mls @ 200 mls/hr IV Q8HR [facility] Piperacillin Sod/Tazobactam (Sod 3.375 gm/ Sodium Chloride) 50 mls @ 100 mls/hr IV Q6H [facility] Last Admin: 09/30/20 06:02 Dose: 100 mls/hr Documented by: Vancomycin HCl 1.25 gm/ Sodium (Chloride) 250 mls @ 166.667 mls/hr IV BID [facility] Last Admin: 09/29/20 20:30 Dose: 166.667 mls/hr Documented by: Sterile Water (Sterile Water For Injection) Confirm Administered Dose 20 mls @ as directed .ROUTE .[facility]-MED ONE Stop: 09/29/20 19:53 Last Admin: 09/29/20 20:01 Dose: Not Given Documented by: Piperacillin/Tazobactam/ (Dextrose 3.375 gm/ Premix) 50 mls @ 100 mls/hr IV Q6H [facility] Last Admin: 09/30/20 13:45 Dose: 100 mls/hr Documented by: Vancomycin HCl 1.25 gm/ Sodium (Chloride) 250 mls @ 166.667 mls/hr IV Q12H [facility] Last Admin: 09/30/20 11:23 Dose: 166.667 mls/hr Documented by: Magnesium Sulfate (Magnesium Sulfate In Water 2 Gm/50 Ml) 2 gm in 50 mls @ 25 mls/hr IV Q6H [facility] Stop: 10/04/20 05:59 Last Admin: 10/03/20 03:29 Dose: 25 mls/hr Documented by: Potassium Phosphate 15 mmol/ (Premix) 250 mls @ 84 mls/hr IV Q3H [facility] Stop: 10/01/20 20:59 Last Admin: 10/01/20 19:06 Dose: 84 mls/hr Documented by: Sodium Chloride (Normal Saline) 500 mls @ 500 mls/hr IV ONETIME ONE Stop: 10/01/20 16:59 Last Admin: 10/01/20 16:53 Dose: 500 mls/hr Documented by: Ketorolac Tromethamine (Ketorolac 30 Mg/Ml Sdv) 30 mg IVPUSH ONETIME ONE Stop: 10/03/20 12:46 Last Admin: 10/03/20 13:07 Dose: 30 mg Documented by: Lidocaine HCl (Lidocaine 2% Jelly 10 Ml Urojet) 10 ml MUCMEM ONETIME ONE Stop: 09/30/20 19:33 Last Admin: 09/30/20 19:40 Dose: 10 ml Documented by: Melatonin (Melatonin 3 Mg Tab) 3 mg PO BEDTIME [facility] Last Admin: 09/30/20 20:52 Dose: 3 mg Documented by: Oxycodone HCl (Oxycodone 5 Mg Tab) 5 mg PO Q4H PRN PRN Reason: Pain (moderate 4-6) Last Admin: 10/03/20 05:28 Dose: 5 mg Documented by: Propofol (Propofol 200 Mg/20 Ml Sdv) Confirm Administered Dose 200 mg .ROUTE .STK-MED ONE Stop: 09/30/20 09:34 Tizanidine HCl (Tizanidine 4 Mg Tab) 2 mg PO Q6H PRN PRN Reason: Muscle Spasm - Painful Last Admin: 10/03/20 08:27 Dose: 2 mg Documented by: Tizanidine HCl (Tizanidine 2 Mg Tab) 1 mg PO Q6H PRN PRN Reason: Muscle Spasm - Painful Last Admin: 10/05/20 09:23 Dose: 1 mg Documented by: Vancomycin HCl (Vancomycin 1 Gm Sdv) 1 gm IV .PHARMACY TO DOSE ОЛЬГА Stop: 09/30/20 07:30 - Exam Quality Assessment: No: Supplemental Oxygen Urinary Catheter Total Time: 1Days 3Hours General: Alert, Cooperative, No Acute Distress HEENT: Pupils Equal Lungs: Normal Respiratory Effort GI/Abdominal Exam: Soft, No Distention Extremities: Pedal Edema (left lower leg ), Joint Swelling (left ankle ) Skin: Warm, Dry, Ecchymosis (left lower leg ) Psy/Mental Status: Alert, Normal Affect - Patient Data Result Diagrams: 10/04/20 05:00 10/04/20 05:00 Sepsis Event Note - Evaluation Sepsis Screening Result: No Definite Risk - Focused Exam Vital Signs: Vital Signs Temp Pulse Pulse Resp BP BP Pulse Ox 10/06/20 11:00 36.2 C 95 18 131/54 L 99 10/06/20 08:07 67 120/72 10/06/20 08:06 120/72 10/06/20 07:00 35.5 C L 67 18 120/72 99 - Problem List Review Problem List Initiated/Reviewed/Updated: Yes - My Orders Last 24 Hours: My Active Orders 10/05/20 13:30 Ibuprofen [Motrin] 600 mg PO Q6H PRN 10/06/20 13:58 Communication Order [RC] QID - Plan Plan:: ASSESSMENT AND PLAN - INJURY TO THE LEFT LOWER LEG WITH HEMATOMA-status post surgical debridement by Dr. Pearson. Difficulty with pain control and concerned that his pain medications are leading to the hyperactive delirium. Slowly improving. Currently on a very limited pain control regimen to avoid narcotics. -Scheduled acetaminophen, as needed ibuprofen and as a last resort tramadol -Orthopedic consultation appreciated -Postoperative care per Dr. Pearson HYPERACTIVE DELIRIUM-agitation seems to finally be resolving and he is nearly back to baseline with only mild intermittent confusion. -Melatonin 9 mg p.o. nightly -Limit narcotics and other medications that could potentially increase delirium Peripheral vascular disease-occlusion of the left proximal superficial femoral artery noted with ultrasound. There was some collateral flow noted with reconstitution of the popliteal artery though monophasic waveforms were noted there. This was discussed with vascular surgery at [facility]. They did not feel there was an urgent need for intervention at this time and recommended medical management and outpatient follow-up. Chronic atrial fibrillation-rate controlled at this time. -Continue metoprolol -Rivaroxaban on hold MAINTENANCE ISSUES -DVT prophylaxis; unable to use pharmacological means because of recent bleeding and hematoma -GI prophylaxis; not indicated -Bowser catheter; not indicated -Nutrition; regular diet DISPOSITION-anticipate discharge to home versus subacute rehab after the hospital stay. Edgar Muse MD
[2020-10-06] MEDS: Melatonin 3 MG Tab PO SCH (20:28)
[2020-10-06] MEDS: Tamsulosin 0.4 MG Cap.ER PO SCH (20:29)
[2020-10-07] MEDS ORDERED: Haloperidol 1 MG Tab PO ONE (00:10)
--- NOTE | 2020-10-07 08:04 | PN ---
DATE OF SERVICE: 10/07/2020 SUBJECTIVE: Horacio walked 4 times yesterday. He does have partial weightbearing on that left leg. He walks with a walker and assistance of 2. He is improving as far as ambulation. Confusion started at around 10 p.m., and he seems to, according to nursing staff, it increased around 5 a.m. He currently is resting now. Vital signs have been stable. Oral intake 120 was recorded. Urine output 950, and he did have a bowel movement. REVIEW OF SYSTEMS: Remainder of review of systems negative for any pertinent positives and negatives. OBJECTIVE: GENERAL: Horacio Moralez is an 80-year-old male. He is quite confused, resting now, and exam deferred due to having a difficult night. ASSESSMENT: 1. Ischemia, left leg. 2. Status post evacuation of hematoma. 3. Urinary retention, resolved. 4. Uncontrolled pain, left leg, resolved. PLAN: Plan discharge on 10/09/2020, to detention home. Continue same cares. We will evaluate santino Haque PA-C /[id number]
[2020-10-07] MEDS: Spironolactone 25 MG Tab PO SCH (09:30)
[2020-10-07] MEDS: Lisinopril 20 MG Tab PO SCH (09:31)
[2020-10-07] MEDS: Aspirin 81 MG Tab.Chew PO SCH (09:31)
[2020-10-07] MEDS: Metoprolol Succinate 50 MG Tab.ER PO SCH (09:33)
[2020-10-07] MEDS: Divalproex Sodium Delayed-Release 125 MG Cap.Sprink PO SCH ×2 (09:34→18:21)
[2020-10-07] MEDS: Allopurinol 100 MG Tab PO SCH (09:34)
[2020-10-07] MEDS: Acetaminophen 500 MG Tab PO SCH ×3 (09:34→20:29)
--- NOTE | 2020-10-07 10:47 | PCM.PN ---
- General Info Date of Service: 10/07/20 Subjective Update: Overnight the patient had difficulty with agitation which required a dose of Haldol to settle him down. He was becoming agitated and even aggressive with staff. This morning he is pleasant, alert and interactive. He does not recall the events of last night. No fevers. Vital signs are stable. Pain and swelling are slightly better today but still requiring a fair amount of assistance to get up from the chair and get around the room. He has not had any fevers. Functional Status: Reports: Pain Controlled, Tolerating Diet - Review of Systems General: Reports: Weakness. Denies: Fever Musculoskeletal: Reports: Foot Pain (left ) Neurological: Reports: Confusion - Patient Data Vitals - Most Recent: Last Vital Signs Temp 36.6 C 10/07/20 10:12 Pulse 79 10/07/20 10:12 Resp 18 10/07/20 10:12 BP 117/51 L 10/07/20 10:12 Pulse Ox 99 10/07/20 10:12 Weight - Most Recent: 94.8 kg I&O - Last 24 Hours: Intake & Output 10/06/20 10/07/20 10/07/20 22:59 06:59 14:59 Intake Total 400 120 Output Total 200 750 250 Balance 200 -630 -250 Med Orders - Current: Current Medications Acetaminophen (Acetaminophen 500 Mg Tab) 1,000 mg PO TID [facility] Last Admin: 10/07/20 09:34 Dose: 1,000 mg Documented by: Allopurinol (Allopurinol 100 Mg Tab) 200 mg PO DAILY [facility] Last Admin: 10/07/20 09:34 Dose: 200 mg Documented by: Aspirin (Aspirin 81 Mg Tab.Chew) 81 mg PO DAILY [facility] Last Admin: 10/07/20 09:31 Dose: 81 mg Documented by: Divalproex Sodium (Divalproex Sodium Delayed-Release 125 Mg Cap.Sprink) 125 mg PO BIDMEALS [facility] Last Admin: 10/07/20 09:34 Dose: 125 mg Documented by: Ibuprofen (Ibuprofen 600 Mg Tab) 600 mg PO Q6H PRN PRN Reason: Pain Last Admin: 10/06/20 13:04 Dose: 600 mg Documented by: Lisinopril (Lisinopril 20 Mg Tab) 20 mg PO DAILY [facility] Last Admin: 10/07/20 09:31 Dose: 20 mg Documented by: Melatonin (Melatonin 3 Mg Tab) 9 mg PO BEDTIME [facility] Last Admin: 10/06/20 20:28 Dose: 9 mg Documented by: Methotrexate (Methotrexate 2.5 Mg Tab) 10 mg PO Q7D [facility] Last Admin: 10/06/20 08:06 Dose: 10 mg Documented by: Metoprolol Succinate (Metoprolol Succinate 50 Mg Tab.Er) 50 mg PO DAILY [facility] Last Admin: 10/07/20 09:33 Dose: 50 mg Documented by: Ondansetron HCl (Ondansetron 4 Mg/2 Ml Sdv) 4 mg IV Q4H PRN PRN Reason: Nausea/Vomiting Polyethylene Glycol (Polyethylene Glycol 3350 Powder 17 Gm Packet) 17 gm PO DAILY PRN PRN Reason: Constipation Last Admin: 10/03/20 20:54 Dose: 17 gm Documented by: Rivaroxaban (Rivaroxaban 10 Mg Tab) 20 mg PO WITHRENITA [facility] Sodium Chloride (Sodium Chloride 0.9% 10 Ml Syringe) 10 ml FLUSH ASDIRECTED PRN PRN Reason: Keep Vein Open Spironolactone (Spironolactone 25 Mg Tab) 25 mg PO DAILY [facility] Last Admin: 10/07/20 09:30 Dose: 25 mg Documented by: Tamsulosin HCl (Tamsulosin 0.4 Mg Cap.Er) 0.4 mg PO BEDTIME [facility] Last Admin: 10/06/20 20:29 Dose: 0.4 mg Documented by: Tramadol HCl (Tramadol 50 Mg Tab) 50 mg PO Q6H PRN PRN Reason: Pain (severe 7-10) Last Admin: 10/06/20 23:42 Dose: 50 mg Documented by: Discontinued Medications Acetaminophen (Acetaminophen 325 Mg Tab) 650 mg PO Q4H PRN PRN Reason: Pain (Mild 1-3)/fever Last Admin: 10/03/20 05:28 Dose: 650 mg Documented by: Hydrocodone Bitart/Acetaminophen (Acetaminophen/Hydrocodone 325-5 Mg Tab) 1 tab PO Q4H PRN PRN Reason: Pain Hydrocodone Bitart/Acetaminophen (Acetaminophen/Hydrocodone 325-5 Mg Tab) 1 - 2 tab PO Q4H PRN PRN Reason: Pain Last Admin: 10/03/20 17:11 Dose: 1 tab Documented by: Cyclobenzaprine HCl (Cyclobenzaprine 10 Mg Tab) 10 mg PO Q8H PRN PRN Reason: Spasms Last Admin: 10/03/20 01:28 Dose: 10 mg Documented by: Divalproex Sodium (Divalproex Sodium Delayed-Release 250 Mg Tab.Cr) 250 mg PO BIDMEALS [facility] Last Admin: 10/04/20 08:10 Dose: 250 mg Documented by: Divalproex Sodium (Divalproex Sodium Delayed-Release 125 Mg Cap.Sprink) 125 mg PO ONETIME ONE Stop: 10/05/20 13:16 Last Admin: 10/05/20 13:38 Dose: 125 mg Documented by: Fentanyl (Fentanyl 100 Mcg/2 Ml Sdv) Confirm Administered Dose 100 mcg .ROUTE .STK-MED ONE Stop: 09/30/20 09:34 Furosemide (Furosemide 20 Mg/2 Ml Vial) 20 mg IV ONETIME ONE Stop: 10/01/20 10:01 Last Admin: 10/01/20 10:26 Dose: 20 mg Documented by: Gabapentin (Gabapentin 300 Mg Cap) 300 mg PO TID [facility] Last Admin: 10/03/20 14:21 Dose: Not Given Documented by: Haloperidol (Haloperidol 1 Mg Tab) 1 mg PO ONETIME ONE Stop: 10/07/20 00:11 Last Admin: 10/07/20 00:18 Dose: 1 mg Documented by: Haloperidol Lactate (Haloperidol Lactate 5 Mg/Ml Sdv) 1 mg IV Q2H PRN PRN Reason: AGITATION Last Admin: 10/02/20 09:28 Dose: 1 mg Documented by: Haloperidol Lactate (Haloperidol Lactate 5 Mg/Ml Sdv) 2 mg IV Q2H PRN PRN Reason: AGITATION Last Admin: 10/03/20 11:00 Dose: 2 mg Documented by: Hydromorphone HCl (Hydromorphone 0.5 Mg/0.5 Ml Syringe) 0.5 mg IVPUSH Q2H PRN PRN Reason: Pain (severe 7-10) Last Admin: 09/30/20 11:15 Dose: 0.5 mg Documented by: Hydromorphone HCl (Hydromorphone 0.5 Mg/0.5 Ml Syringe) 0.5 - 1 mg IVPUSH Q1H PRN PRN Reason: Pain (severe 7-10) Last Admin: 10/01/20 09:53 Dose: 1 mg Documented by: Hydromorphone HCl (Hydromorphone 0.5 Mg/0.5 Ml Syringe) 0.5 mg IVPUSH Q2H PRN PRN Reason: Breakthrough Pain Last Admin: 10/03/20 11:16 Dose: 0.5 mg Documented by: Cefazolin Sodium 1 gm/ Sodium (Chloride) 50 mls @ 100 mls/hr IV ONETIME ONE Stop: 09/29/20 17:32 Last Admin: 09/29/20 17:25 Dose: 100 mls/hr Documented by: Sodium Chloride (Normal Saline) 1,000 mls @ 250 mls/hr IV ASDIRECTED [facility] Last Admin: 09/29/20 17:20 Dose: 250 mls/hr Documented by: Sodium Chloride (Normal Saline) 1,000 mls @ 125 mls/hr IV ASDIRECTED [facility] Last Admin: 09/30/20 00:05 Dose: 125 mls/hr Documented by: Cefazolin Sodium 1 gm/ Sodium (Chloride) 50 mls @ 200 mls/hr IV Q8HR [facility] Piperacillin Sod/Tazobactam (Sod 3.375 gm/ Sodium Chloride) 50 mls @ 100 mls/hr IV Q6H [facility] Last Admin: 09/30/20 06:02 Dose: 100 mls/hr Documented by: Vancomycin HCl 1.25 gm/ Sodium (Chloride) 250 mls @ 166.667 mls/hr IV BID [facility] Last Admin: 09/29/20 20:30 Dose: 166.667 mls/hr Documented by: Sterile Water (Sterile Water For Injection) Confirm Administered Dose 20 mls @ as directed .ROUTE .STK-MED ONE Stop: 09/29/20 19:53 Last Admin: 09/29/20 20:01 Dose: Not Given Documented by: Piperacillin/Tazobactam/ (Dextrose 3.375 gm/ Premix) 50 mls @ 100 mls/hr IV Q6H [facility] Last Admin: 09/30/20 13:45 Dose: 100 mls/hr Documented by: Vancomycin HCl 1.25 gm/ Sodium (Chloride) 250 mls @ 166.667 mls/hr IV Q12H [facility] Last Admin: 09/30/20 11:23 Dose: 166.667 mls/hr Documented by: Magnesium Sulfate (Magnesium Sulfate In Water 2 Gm/50 Ml) 2 gm in 50 mls @ 25 mls/hr IV Q6H [facility] Stop: 10/04/20 05:59 Last Admin: 10/03/20 03:29 Dose: 25 mls/hr Documented by: Potassium Phosphate 15 mmol/ (Premix) 250 mls @ 84 mls/hr IV Q3H [facility] Stop: 10/01/20 20:59 Last Admin: 10/01/20 19:06 Dose: 84 mls/hr Documented by: Sodium Chloride (Normal Saline) 500 mls @ 500 mls/hr IV ONETIME ONE Stop: 10/01/20 16:59 Last Admin: 10/01/20 16:53 Dose: 500 mls/hr Documented by: Ketorolac Tromethamine (Ketorolac 30 Mg/Ml Sdv) 30 mg IVPUSH ONETIME ONE Stop: 10/03/20 12:46 Last Admin: 10/03/20 13:07 Dose: 30 mg Documented by: Lidocaine HCl (Lidocaine 2% Jelly 10 Ml Urojet) 10 ml MUCMEM ONETIME ONE Stop: 09/30/20 19:33 Last Admin: 09/30/20 19:40 Dose: 10 ml Documented by: Melatonin (Melatonin 3 Mg Tab) 3 mg PO BEDTIME [facility] Last Admin: 09/30/20 20:52 Dose: 3 mg Documented by: Oxycodone HCl (Oxycodone 5 Mg Tab) 5 mg PO Q4H PRN PRN Reason: Pain (moderate 4-6) Last Admin: 10/03/20 05:28 Dose: 5 mg Documented by: Propofol (Propofol 200 Mg/20 Ml Sdv) Confirm Administered Dose 200 mg .ROUTE .STK-MED ONE Stop: 09/30/20 09:34 Tizanidine HCl (Tizanidine 4 Mg Tab) 2 mg PO Q6H PRN PRN Reason: Muscle Spasm - Painful Last Admin: 10/03/20 08:27 Dose: 2 mg Documented by: Tizanidine HCl (Tizanidine 2 Mg Tab) 1 mg PO Q6H PRN PRN Reason: Muscle Spasm - Painful Last Admin: 10/05/20 09:23 Dose: 1 mg Documented by: Vancomycin HCl (Vancomycin 1 Gm Sdv) 1 gm IV .PHARMACY TO DOSE ОЛЬГА Stop: 09/30/20 07:30 - Exam Quality Assessment: No: Supplemental Oxygen Urinary Catheter Total Time: 1Days 3Hours General: Alert, Cooperative, No Acute Distress Lungs: Normal Respiratory Effort GI/Abdominal Exam: Soft, No Distention Extremities: Pedal Edema (left leg). No: Increased Warmth Skin: Warm, Dry Wound/Incisions: No Drainage (right posterior calf mid leg ) Psy/Mental Status: Alert, Normal Affect. No: Agitated - Patient Data Result Diagrams: 10/04/20 05:00 10/04/20 05:00 Sepsis Event Note - Evaluation Sepsis Screening Result: No Definite Risk - Focused Exam Vital Signs: Vital Signs Temp Pulse Pulse Resp BP BP BP 10/07/20 10:12 36.6 C 79 18 117/51 L 10/07/20 09:33 114 H 152/85 H 10/07/20 09:31 152/85 H 10/07/20 07:57 36.6 C 114 H 18 152/85 H 10/07/20 05:25 83 175/86 H 10/07/20 02:50 36.7 C 98 16 178/93 H Pulse Ox 10/07/20 10:12 99 10/07/20 09:33 10/07/20 09:31 10/07/20 07:57 97 10/07/20 05:25 96 10/07/20 02:50 99 - Problem List Review Problem List Initiated/Reviewed/Updated: Yes - My Orders Last 24 Hours: My Active Orders 10/06/20 13:58 Communication Order [RC] QID 10/07/20 09:00 Divalproex Sodium [Depakote Sprinkle] 125 mg PO BIDMEALS - Plan Plan:: ASSESSMENT AND PLAN - INJURY TO THE LEFT LOWER LEG WITH HEMATOMA-status post surgical debridement by Dr. Pearson. Difficulty with pain control and concerned that his pain medications are leading to the hyperactive delirium. Slowly improving. Currently on a very limited pain control regimen to avoid narcotics. -Elevate left leg for at least 30 minutes 4 times daily -Scheduled acetaminophen, as needed ibuprofen and as a last resort tramadol -Orthopedic consultation appreciated -Postoperative care per Dr. Pearson HYPERACTIVE DELIRIUM-agitation seem to have resolved but recurred again last night. He may have a component of underlying dementia. -Depakote 125 mg in the morning and evening -Risperidone at bedtime -Melatonin 9 mg p.o. nightly -Limit narcotics and other medications that could potentially increase delirium Peripheral vascular disease-occlusion of the left proximal superficial femoral artery noted with ultrasound. There was some collateral flow noted with recons titution of the popliteal artery though monophasic waveforms were noted there. This was discussed with vascular surgery at [facility]. They did not feel there was an urgent need for intervention at this time and recommended medical management and outpatient follow-up. Chronic atrial fibrillation-rate controlled at this time. -Continue metoprolol -Rivaroxaban on hold MAINTENANCE ISSUES -DVT prophylaxis; unable to use pharmacological means because of recent bleeding and hematoma -GI prophylaxis; not indicated -Bowser catheter; not indicated -Nutrition; regular diet DISPOSITION-anticipate discharge to home versus subacute rehab after the hospital stay. Edgar Muse MD
[2020-10-07] MEDS: Melatonin 3 MG Tab PO SCH (20:29)
[2020-10-07] MEDS: Tamsulosin 0.4 MG Cap.ER PO SCH (20:29)
[2020-10-07] MEDS ORDERED: risperiDONE 0.5 MG Tab PO SCH (21:00)
[2020-10-08] MEDS: Ibuprofen 600 MG Tab PO PRN (04:33)
--- NOTE | 2020-10-08 07:46 | PN ---
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 He walks on his tippy toe or the front of his left foot when ambulating. He ambulates with a walker and 1- to 2-assist. Remains to be very confused. Subjective unobtainable. OBJECTIVE: GENERAL: Horacio is an 80-year-old male. VITAL SIGNS: TPR from 10/07/2020 at 2300, 96.2, 66, 16, blood pressure 168/87. HEENT: Negative. HEART: Regular rate. LUNGS: Clear. EXTREMITIES: Left leg shows no change. ASSESSMENT: 1. Ischemia, left leg. 2. Status post evacuation of hematoma, left leg. 3. Urinary retention, resolved. 4. Uncontrolled pain, left leg, resolved. PLAN: 1. Continue same cares. 2. Plan discharge when rehab facility is available. 3. We will evaluate p.r.n. or in a.m. Lynda Haque PA-C /[id number]
[2020-10-08] MEDS: Divalproex Sodium Delayed-Release 125 MG Cap.Sprink PO SCH ×2 (08:27→10:05)
[2020-10-08] MEDS: Spironolactone 25 MG Tab PO SCH (08:27)
[2020-10-08] MEDS: Lisinopril 20 MG Tab PO SCH (08:27)
[2020-10-08] MEDS: Acetaminophen 500 MG Tab PO SCH ×3 (08:28→20:23)
[2020-10-08] MEDS: Metoprolol Succinate 50 MG Tab.ER PO SCH (08:28)
[2020-10-08] MEDS: Allopurinol 100 MG Tab PO SCH (08:28)
[2020-10-08] MEDS: Aspirin 81 MG Tab.Chew PO SCH (08:28)
--- NOTE | 2020-10-08 11:02 | PCM.PN ---
- General Info Date of Service: 10/08/20 Subjective Update: There were no acute events overnight. Patient slept fairly well. No significant agitation or aggression. This morning he reports that his left leg is hurting more than it did yesterday and he is having a little more difficulty with ambulation. He reports that he feels off but cannot quite put his finger on it. He is paranoid that we are giving him medications that are not his usual prescriptions. He is very hesitant to take his morning pills today. He did well with elevation of his left leg and his swelling has improved compared to yesterday. His vital signs have remained stable. Functional Status: Reports: Pain Controlled, Tolerating Diet - Review of Systems General: Reports: Weakness. Denies: Fever Neurological: Reports: Confusion - Patient Data Vitals - Most Recent: Last Vital Signs Temp 36.8 C 10/07/20 23:00 Pulse 91 10/08/20 08:28 Resp 18 10/08/20 07:00 BP 117/51 L 10/08/20 08:28 Pulse Ox 98 10/08/20 07:00 Weight - Most Recent: 94.8 kg I&O - Last 24 Hours: Intake & Output 10/07/20 10/08/20 10/08/20 22:59 06:59 14:59 Intake Total 600 Output Total 1100 200 Balance -1100 400 Med Orders - Current: Current Medications Acetaminophen (Acetaminophen 500 Mg Tab) 1,000 mg PO TID [facility] [place] Last Admin: 10/08/20 08:28 Dose: 1,000 mg Documented by: Allopurinol (Allopurinol 100 Mg Tab) 200 mg PO DAILY [facility] [place] Last Admin: 10/08/20 08:28 Dose: 200 mg Documented by: Aspirin (Aspirin 81 Mg Tab.Chew) 81 mg PO DAILY [facility] [place] Last Admin: 10/08/20 08:28 Dose: 81 mg Documented by: Ibuprofen (Ibuprofen 600 Mg Tab) 600 mg PO Q6H PRN PRN Reason: Pain Last Admin: 10/08/20 04:33 Dose: 600 mg Documented by: Lisinopril (Lisinopril 20 Mg Tab) 20 mg PO DAILY [facility] [place] Last Admin: 10/08/20 08:27 Dose: 20 mg Documented by: Melatonin (Melatonin 3 Mg Tab) 9 mg PO BEDTIME [facility] [place] Last Admin: 10/07/20 20:29 Dose: 9 mg Documented by: Methotrexate (Methotrexate 2.5 Mg Tab) 10 mg PO Q7D [facility] [place] Last Admin: 10/06/20 08:06 Dose: 10 mg Documented by: Metoprolol Succinate (Metoprolol Succinate 50 Mg Tab.Er) 50 mg PO DAILY [facility] [place] Last Admin: 10/08/20 08:28 Dose: 50 mg Documented by: Ondansetron HCl (Ondansetron 4 Mg/2 Ml Sdv) 4 mg IV Q4H PRN PRN Reason: Nausea/Vomiting Polyethylene Glycol (Polyethylene Glycol 3350 Powder 17 Gm Packet) 17 gm PO DAILY PRN PRN Reason: Constipation Last Admin: 10/03/20 20:54 Dose: 17 gm Documented by: Rivaroxaban (Rivaroxaban 10 Mg Tab) [facility] Sodium Chloride (Sodium Chloride 0.9% 10 Ml Syringe) 10 ml FLUSH ASDIRECTED PRN PRN Reason: Keep Vein Open Spironolactone (Spironolactone 25 Mg Tab) 25 mg PO DAILY [facility] [place] Last Admin: 10/08/20 08:27 Dose: 25 mg Documented by: Tamsulosin HCl (Tamsulosin 0.4 Mg Cap.Er) 0.4 mg PO BEDTIME [facility] [place] Last Admin: 10/07/20 20:29 Dose: 0.4 mg Documented by: Tramadol HCl (Tramadol 50 Mg Tab) 50 mg PO Q6H PRN PRN Reason: Pain (severe 7-10) Last Admin: 10/06/20 23:42 Dose: 50 mg Documented by: Discontinued Medications Acetaminophen (Acetaminophen 325 Mg Tab) 650 mg PO Q4H PRN PRN Reason: Pain (Mild 1-3)/fever Last Admin: 10/03/20 05:28 Dose: 650 mg Documented by: Hydrocodone Bitart/Acetaminophen (Acetaminophen/Hydrocodone 325-5 Mg Tab) 1 tab PO Q4H PRN PRN Reason: Pain Hydrocodone Bitart/Acetaminophen (Acetaminophen/Hydrocodone 325-5 Mg Tab) 1 - 2 tab PO Q4H PRN PRN Reason: Pain Last Admin: 10/03/20 17:11 Dose: 1 tab Documented by: Cyclobenzaprine HCl (Cyclobenzaprine 10 Mg Tab) 10 mg PO Q8H PRN PRN Reason: Spasms Last Admin: 10/03/20 01:28 Dose: 10 mg Documented by: Divalproex Sodium (Divalproex Sodium Delayed-Release 250 Mg Tab.Cr) 250 mg PO BIDMEALS [facility] [place] Last Admin: 10/04/20 08:10 Dose: 250 mg Documented by: Divalproex Sodium (Divalproex Sodium Delayed-Release 125 Mg Cap.Sprink) 125 mg PO ONETIME ONE Stop: 10/05/20 13:16 Last Admin: 10/05/20 13:38 Dose: 125 mg Documented by: Divalproex Sodium (Divalproex Sodium Delayed-Release 125 Mg Cap.Sprink) [facility] Admin: 10/08/20 10:05 Dose: Not Given Documented by: Fentanyl (Fentanyl 100 Mcg/2 Ml Sdv) Confirm Administered Dose 100 mcg .ROUTE .STK-MED ONE Stop: 09/30/20 09:34 Furosemide (Furosemide 20 Mg/2 Ml Vial) 20 mg IV ONETIME ONE Stop: 10/01/20 10:01 Last Admin: 10/01/20 10:26 Dose: 20 mg Documented by: Gabapentin (Gabapentin 300 Mg Cap) 300 mg PO TID [facility] [place] Last Admin: 10/03/20 14:21 Dose: Not Given Documented by: Haloperidol (Haloperidol 1 Mg Tab) 1 mg PO ONETIME ONE Stop: 10/07/20 00:11 Last Admin: 10/07/20 00:18 Dose: 1 mg Documented by: Haloperidol Lactate (Haloperidol Lactate 5 Mg/Ml Sdv) 1 mg IV Q2H PRN PRN Reason: AGITATION Last Admin: 10/02/20 09:28 Dose: 1 mg Documented by: Haloperidol Lactate (Haloperidol Lactate 5 Mg/Ml Sdv) 2 mg IV Q2H PRN PRN Reason: AGITATION Last Admin: 10/03/20 11:00 Dose: 2 mg Documented by: Hydromorphone HCl (Hydromorphone 0.5 Mg/0.5 Ml Syringe) 0.5 mg IVPUSH Q2H PRN PRN Reason: Pain (severe 7-10) Last Admin: 09/30/20 11:15 Dose: 0.5 mg Documented by: Hydromorphone HCl (Hydromorphone 0.5 Mg/0.5 Ml Syringe) 0.5 - 1 mg IVPUSH Q1H PRN PRN Reason: Pain (severe 7-10) Last Admin: 10/01/20 09:53 Dose: 1 mg Documented by: Hydromorphone HCl (Hydromorphone 0.5 Mg/0.5 Ml Syringe) 0.5 mg IVPUSH Q2H PRN PRN Reason: Breakthrough Pain Last Admin: 10/03/20 11:16 Dose: 0.5 mg Documented by: Cefazolin Sodium 1 gm/ Sodium (Chloride) 50 mls @ 100 mls/hr IV ONETIME ONE Stop: 09/29/20 17:32 Last Admin: 09/29/20 17:25 Dose: 100 mls/hr Documented by: Sodium Chloride (Normal Saline) 1,000 mls @ 250 mls/hr IV ASDIRECTED [facility] [place] Last Admin: 09/29/20 17:20 Dose: 250 mls/hr Documented by: Sodium Chloride (Normal Saline) 1,000 mls @ 125 mls/hr IV ASDIRECTED [facility] Last Admin: 09/30/20 00:05 Dose: 125 mls/hr Documented by: Cefazolin Sodium 1 gm/ Sodium (Chloride) 50 mls @ 200 mls/hr IV Q8HR [facility] [place] Piperacillin Sod/Tazobactam (Sod 3.375 gm/ Sodium Chloride) 50 mls @ 100 mls/hr IV Q6H [facility] [place] Last Admin: 09/30/20 06:02 Dose: 100 mls/hr Documented by: Vancomycin HCl 1.25 gm/ Sodium (Chloride) 250 mls @ 166.667 mls/hr IV BID [facility] [place] Last Admin: 09/29/20 20:30 Dose: 166.667 mls/hr Documented by: Sterile Water (Sterile Water For Injection) Confirm Administered Dose 20 mls @ as directed .ROUTE .STK-MED ONE Stop: 09/29/20 19:53 Last Admin: 09/29/20 20:01 Dose: Not Given Documented by: Piperacillin/Tazobactam/ (Dextrose 3.375 gm/ Premix) 50 mls @ 100 mls/hr IV Q6H [facility] [place] Last Admin: 09/30/20 13:45 Dose: 100 mls/hr Documented by: Vancomycin HCl 1.25 gm/ Sodium (Chloride) 250 mls @ 166.667 mls/hr IV Q12H [facility] [place] Last Admin: 09/30/20 11:23 Dose: 166.667 mls/hr Documented by: Magnesium Sulfate (Magnesium Sulfate In Water 2 Gm/50 Ml) 2 gm in 50 mls @ 25 mls/hr IV Q6H [facility] Stop: 10/04/20 05:59 Last Admin: 10/03/20 03:29 Dose: 25 mls/hr Documented by: Potassium Phosphate 15 mmol/ (Premix) 250 mls @ 84 mls/hr IV Q3H [facility] Stop: 10/01/20 20:59 Last Admin: 10/01/20 19:06 Dose: 84 mls/hr Documented by: Sodium Chloride (Normal Saline) 500 mls @ 500 mls/hr IV ONETIME ONE Stop: 10/01/20 16:59 Last Admin: 10/01/20 16:53 Dose: 500 mls/hr Documented by: Ketorolac Tromethamine (Ketorolac 30 Mg/Ml Sdv) 30 mg IVPUSH ONETIME ONE Stop: 10/03/20 12:46 Last Admin: 10/03/20 13:07 Dose: 30 mg Documented by: Lidocaine HCl (Lidocaine 2% Jelly 10 Ml Urojet) 10 ml MUCMEM ONETIME ONE Stop: 09/30/20 19:33 Last Admin: 09/30/20 19:40 Dose: 10 ml Documented by: Melatonin (Melatonin 3 Mg Tab) 3 mg PO BEDTIME [facility] Last Admin: 09/30/20 20:52 Dose: 3 mg Documented by: Oxycodone HCl (Oxycodone 5 Mg Tab) 5 mg PO Q4H PRN PRN Reason: Pain (moderate 4-6) Last Admin: 10/03/20 05:28 Dose: 5 mg Documented by: Propofol (Propofol 200 Mg/20 Ml Sdv) Confirm Administered Dose 200 mg .ROUTE .STK-MED ONE Stop: 09/30/20 09:34 Risperidone (Risperidone 0.5 Mg Tab) 0.5 mg PO BEDTIME [facility] Last Admin: 10/07/20 20:29 Dose: 0.5 mg Documented by: Tizanidine HCl (Tizanidine 4 Mg Tab) 2 mg PO Q6H PRN PRN Reason: Muscle Spasm - Painful Last Admin: 10/03/20 08:27 Dose: 2 mg Documented by: Tizanidine HCl (Tizanidine 2 Mg Tab) 1 mg PO Q6H PRN PRN Reason: Muscle Spasm - Painful Last Admin: 10/05/20 09:23 Dose: 1 mg Documented by: Vancomycin HCl (Vancomycin 1 Gm Sdv) 1 gm IV .PHARMACY TO DOSE ОЛ[facility] Stop: 09/30/20 07:30 - Exam Quality Assessment: No: Supplemental Oxygen Urinary Catheter Total Time: 1Days 3Hours General: Alert, Cooperative, No Acute Distress HEENT: Pupils Equal Lungs: Normal Respiratory Effort GI/Abdominal Exam: Soft, No Distention Extremities: No Pedal Edema. No: Increased Warmth Skin: Warm, Dry, Ecchymosis (left lower leg posteriorly ) Psy/Mental Status: Alert, Normal Affect - Patient Data Result Diagrams: 10/04/20 05:00 10/04/20 05:00 Sepsis Event Note - Evaluation Sepsis Screening Result: No Definite Risk - Focused Exam Vital Signs: Vital Signs Pulse Pulse Resp BP BP Pulse Ox 10/08/20 08:28 91 117/51 L 10/08/20 08:27 117/51 L 10/08/20 07:00 91 18 117/51 L 98 - Problem List Review Problem List Initiated/Reviewed/Updated: Yes - Plan Plan:: ASSESSMENT AND PLAN - INJURY TO THE LEFT LOWER LEG WITH HEMATOMA-status post surgical debridement by Dr. Pearson. Difficulty with pain control and concerned that his pain medications are leading to the hyperactive delirium. Slowly improving. Currently on a very limited pain control regimen to avoid narcotics. -Elevate left leg for at least 30 minutes 4 times daily -Scheduled acetaminophen, as needed ibuprofen and as a last resort tramadol -Orthopedic consultation appreciated -Postoperative care per Dr. Pearson HYPERACTIVE DELIRIUM-agitation has been up and down with much less agitation. Has some mild paranoia today. He may have some underlying dementia. Has not seemed to tolerate even low doses of anything. -Discontinue Depakote and risperidone -Melatonin 9 mg p.o. nightly -Limit narcotics and other medications that could potentially increase delirium -Needs to be home in his own environment? Peripheral vascular disease-occlusion of the left proximal superficial femoral artery noted with ultrasound. There was some collateral flow noted with reconstitution of the popliteal artery though monophasic waveforms were noted there. This was discussed with vascular surgery at [facility]. They did not feel there was an urgent need for intervention at this time and recommended medical management and outpatient follow-up. Chronic atrial fibrillation-rate controlled at this time. -Continue metoprolol -Rivaroxaban MAINTENANCE ISSUES -DVT prophylaxis; restarting rivaroxaban -GI prophylaxis; not indicated -Bowser catheter; not indicated -Nutrition; regular diet DISPOSITION-anticipate discharge to home with home care versus subacute rehab after the hospital stay. Edgar Muse MD
--- NOTE | 2020-10-08 17:33 | PCM.HP.2 ---
H&P History of Present Illness - General Admit Problem/Dx: Admission Diagnosis/Problem Admission Diagnosis/Problem Infection of skin Left Leg Pain Score (Numeric/FACES): 0 - Related Data Allergies/Adverse Reactions: Allergies Allergy/AdvReac Type Severity Reaction Status Date / Time No Known Allergies Allergy Verified 09/29/20 16:41 Home Medications: Home Meds Aspirin [Olivia Chewable Aspirin] 81 mg PO DAILY 10/05/14 [History] Multivitamin [Multivitamins] 1 tab PO DAILY 10/05/14 [History] Colchicine 1.2 mg PO ASDIRECTED 05/13/20 [History] Folic Acid 1 mg PO DAILY 05/13/20 [History] Methotrexate 10 mg PO WEEKLY 05/13/20 [History] allopurinoL [Zyloprim] 200 mg PO DAILY 05/13/20 [History] lisinopriL [Prinivil] 20 mg PO DAILY 05/13/20 [History] Calcium Carbonate/Vitamin D3 [Calcium 600 + D3 Softgel] 1 each PO BIDMEALS 09/25/20 [History] Ciclopirox [Loprox 0.77% Crm] 1 applic TOP BID PRN 09/25/20 [History] Melatonin 3 mg PO BEDTIME 09/25/20 [History] Metoprolol Succinate [Toprol Xl] 50 mg PO DAILY 09/25/20 [History] Rivaroxaban [Xarelto] 20 mg PO QPM 09/25/20 [History] Spironolactone [Aldactone] 25 mg PO DAILY 09/25/20 [History] traMADol [Ultram] 10 mg PO Q6H PRN 09/29/20 [History] Past Medical History HEENT History: Reports: Hard of Hearing Cardiovascular History: Reports: Afib, Hypertension, Pacemaker Respiratory History: Reports: Sleep Apnea 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 Neurological History: Reports: CVA Hematologic History: Reports: Anticoagulation Therapy Dermatologic History: Reports: Other (See Below) Other Dermatologic History: hematoma left leg - Past Surgical History HEENT Surgical History: Reports: Cataract Surgery, Tonsillectomy GI Surgical History: Reports: Colonoscopy Musculoskeletal Surgical History: Reports: Knee Replacement Social & Family History - Family History Family Medical History: Unobtainable - Tobacco Use Tobacco Use Status *Q: Light Tobacco User Years of Tobacco use: 15 Packs/Tins Daily: 0.5 Used Tobacco, but Quit: Yes Month/Year Tobacco Last Used: 1979 Second Hand Smoke Exposure: No - Caffeine Use Caffeine Use: Reports: Coffee, Tea - Alcohol Use Days Per Week of Alcohol Use: 1 Number of Drinks Per Day: 2 Total Drinks Per Week: 2 - Recreational Drug Use Recreational Drug Use: No - Living Situation & Occupation Living situation: Reports: , with Significant Other Occupation: Retired Exam - Vital Signs Vital Signs: Last Vital Signs Temp 97.5 F 10/08/20 11:00 Pulse 85 10/08/20 11:00 Resp 18 10/08/20 11:00 BP 130/78 10/08/20 11:00 Pulse Ox 98 10/08/20 11:00 Weight: 208 lb 15.971 oz - Patient Data Result Diagrams: 10/04/20 05:00 10/04/20 05:00 Sepsis Event Note - Evaluation Sepsis Screening Result: No Definite Risk - Focused Exam Vital Signs: Vital Signs Temp Pulse Pulse Resp BP BP Pulse Ox 10/08/20 11:00 97.5 F 85 18 130/78 98 10/08/20 08:28 91 117/51 L 10/08/20 08:27 117/51 L 10/08/20 07:00 91 18 117/51 L 98 *Q Meaningful Use (ADM) - VTE *Q VTE Pharmacological Contraindications *Q: Active Hemorrhage Orders Last 24hrs: Medication Orders Acetaminophen (Acetaminophen 500 Mg Tab) 1,000 mg PO TID [facility] Admin: 10/08/20 14:17 Dose: 1,000 mg Documented by: Admin: 10/08/20 08:28 Dose: 1,000 mg Documented by: Admin: 10/07/20 20:29 Dose: 1,000 mg Documented by: Admin: 10/07/20 13:53 Dose: 1,000 mg Documented by: Admin: 10/07/20 09:34 Dose: 1,000 mg Documented by: Admin: 10/06/20 20:29 Dose: 1,000 mg Documented by: Admin: 10/06/20 13:09 Dose: 1,000 mg Documented by: Admin: 10/06/20 08:07 Dose: 1,000 mg Documented by: Admin: 10/05/20 21:43 Dose: 1,000 mg Documented by: Admin: 10/05/20 13:38 Dose: 1,000 mg Documented by: Admin: 10/05/20 09:14 Dose: Not Given Documented by: Admin: 10/05/20 07:33 Dose: 1,000 mg Documented by: Admin: 10/04/20 21:00 Dose: 1,000 mg Documented by: Admin: 10/04/20 15:34 Dose: 1,000 mg Documented by: Admin: 10/04/20 10:29 Dose: 1,000 mg Documented by: Admin: 10/03/20 20:26 Dose: 1,000 mg Documented by: Admin: 10/03/20 14:21 Dose: Not Given Documented by: Admin: 10/03/20 12:34 Dose: 1,000 mg Documented by: LAURA Allopurinol (Allopurinol 100 Mg Tab) 200 mg PO DAILY [facility] Admin: 10/08/20 08:28 Dose: 200 mg Documented by: Admin: 10/07/20 09:34 Dose: 200 mg Documented by: Admin: 10/06/20 08:07 Dose: 200 mg Documented by: Admin: 10/05/20 09:14 Dose: 200 mg Documented by: Admin: 10/04/20 10:30 Dose: 200 mg Documented by: Admin: 10/03/20 08:33 Dose: 200 mg Documented by: Admin: 10/02/20 08:32 Dose: 200 mg Documented by: Admin: 10/01/20 09:53 Dose: 200 mg Documented by: Admin: 09/30/20 11:09 Dose: 200 mg Documented by: ANILA Aspirin (Aspirin 81 Mg Tab.Chew) 81 mg PO DAILY [facility] Admin: 10/08/20 08:28 Dose: 81 mg Documented by: Admin: 10/07/20 09:31 Dose: 81 mg Documented by: Admin: 10/06/20 08:06 Dose: 81 mg Documented by: Admin: 10/05/20 09:15 Dose: 81 mg Documented by: Admin: 10/04/20 10:30 Dose: 81 mg Documented by: Admin: 10/03/20 08:33 Dose: 81 mg Documented by: Admin: 10/02/20 08:30 Dose: 81 mg Documented by: Admin: 10/01/20 09:05 Dose: 81 mg Documented by: Admin: 09/30/20 11:03 Dose: 81 mg Documented by: ANILA Ibuprofen (Ibuprofen 600 Mg Tab) 600 mg PO Q6H PRN PRN Reason: Pain Last Admin: 10/08/20 04:33 Dose: 600 mg Documented by: Admin: 10/06/20 13:04 Dose: 600 mg Documented by: Admin: 10/06/20 00:06 Dose: 600 mg Documented by: Admin: 10/05/20 13:43 Dose: 600 mg Documented by: LAURA Lisinopril (Lisinopril 20 Mg Tab) 20 mg PO DAILY [facility] Admin: 10/08/20 08:27 Dose: 20 mg Documented by: Admin: 10/07/20 09:31 Dose: 20 mg Documented by: Admin: 10/06/20 08:06 Dose: 20 mg Documented by: Admin: 10/05/20 09:11 Dose: 20 mg Documented by: Admin: 10/01/20 09:05 Dose: 20 mg Documented by: Admin: 09/30/20 11:02 Dose: 20 mg Documented by: ANILA Melatonin (Melatonin 3 Mg Tab) 9 mg PO BEDTIME [facility] Admin: 10/07/20 20:29 Dose: 9 mg Documented by: Admin: 10/06/20 20:28 Dose: 9 mg Documented by: Admin: 10/05/20 21:43 Dose: 9 mg Documented by: Admin: 10/04/20 21:07 Dose: 9 mg Documented by: Admin: 10/03/20 20:26 Dose: 9 mg Documented by: Admin: 10/02/20 20:10 Dose: 9 mg Documented by: Admin: 10/01/20 22:01 Dose: 9 mg Documented by: DEXTER Methotrexate (Methotrexate 2.5 Mg Tab) 10 mg PO Q7D [facility] Last Admin: 10/06/20 08:06 Dose: 10 mg Documented by: DUNCAN Metoprolol Succinate (Metoprolol Succinate 50 Mg Tab.Er) 50 mg PO DAILY [facility] Last Admin: 10/08/20 08:28 Dose: 50 mg Documented by: Admin: 10/07/20 09:33 Dose: 50 mg Documented by: Admin: 10/06/20 08:07 Dose: 50 mg Documented by: Admin: 10/05/20 09:14 Dose: 50 mg Documented by: Admin: 10/04/20 10:31 Dose: 50 mg Documented by: Admin: 10/03/20 08:32 Dose: 50 mg Documented by: Admin: 10/02/20 08:30 Dose: 50 mg Documented by: Admin: 10/01/20 09:07 Dose: 50 mg Documented by: Admin: 09/30/20 11:03 Dose: 50 mg Documented by: ANILA Ondansetron HCl (Ondansetron 4 Mg/2 Ml Sdv) 4 mg IV Q4H PRN PRN Reason: Nausea/Vomiting Polyethylene Glycol (Polyethylene Glycol 3350 Powder 17 Gm Packet) 17 gm PO DAILY PRN PRN Reason: Constipation Last Admin: 10/03/20 20:54 Dose: 17 gm Documented by: MICHAEL Rivaroxaban (Rivaroxaban 10 Mg Tab) 20 mg PO FREDDY [facility] Sodium Chloride (Sodium Chloride 0.9% 10 Ml Syringe) 10 ml FLUSH ASDIRECTED PRN PRN Reason: Keep Vein Open Spironolactone (Spironolactone 25 Mg Tab) 25 mg PO DAILY [facility] Last Admin: 10/08/20 08:27 Dose: 25 mg Documented by: Admin: 10/07/20 09:30 Dose: 25 mg Documented by: Admin: 10/06/20 08:05 Dose: 25 mg Documented by: Admin: 10/05/20 09:14 Dose: 25 mg Documented by: Admin: 10/04/20 10:29 Dose: 25 mg Documented by: Admin: 10/03/20 08:33 Dose: 25 mg Documented by: Admin: 10/02/20 08:33 Dose: 25 mg Documented by: Admin: 10/01/20 09:08 Dose: 25 mg Documented by: Admin: 09/30/20 11:03 Dose: 25 mg Documented by: ANILA Tamsulosin HCl (Tamsulosin 0.4 Mg Cap.Er) 0.4 mg PO BEDTIME [facility] Last Admin: 10/07/20 20:29 Dose: 0.4 mg Documented by: Admin: 10/06/20 20:29 Dose: 0.4 mg Documented by: Admin: 10/05/20 21:43 Dose: 0.4 mg Documented by: Admin: 10/04/20 21:07 Dose: 0.4 mg Documented by: Admin: 10/03/20 20:26 Dose: 0.4 mg Documented by: Admin: 10/02/20 20:11 Dose: 0.4 mg Documented by: Admin: 10/01/20 21:59 Dose: 0.4 mg Documented by: Admin: 10/01/20 10:27 Dose: 0.4 mg Documented by: BELEN Tramadol HCl (Tramadol 50 Mg Tab) 50 mg PO Q6H PRN PRN Reason: Pain (severe 7-10) Last Admin: 10/06/20 23:42 Dose: 50 mg Documented by: ANILA Assessment/Plan Comment:: ASSESSMENT AND PLAN - INJURY TO THE LEFT LOWER LEG WITH HEMATOMA-status post surgical debridement by Dr. Pearson. Difficulty with pain control and concerned that his pain medications are leading to the hyperactive delirium. Slowly improving. Currently on a very limited pain control regimen to avoid narcotics. -Elevate left leg for at least 30 minutes 4 times daily -Scheduled acetaminophen, as needed ibuprofen and as a last resort tramadol -Orthopedic consultation appreciated -Postoperative care per Dr. Pearson HYPERACTIVE DELIRIUM-agitation has been up and down with much less agitation. Has some mild paranoia today. He may have some underlying dementia. Has not seemed to tolerate even low doses of anything. -Discontinue Depakote and risperidone -Melatonin 9 mg p.o. nightly -Limit narcotics and other medications that could potentially increase delirium -Needs to be home in his own environment? Peripheral vascular disease-occlusion of the left proximal superficial femoral artery noted with ultrasound. There was some collateral flow noted with reconstitution of the popliteal artery though monophasic waveforms were noted there. This was discussed with vascular surgery at [place] [facility] in [place]. They did not feel there was an urgent need for intervention at this time and recommended medical management and outpatient follow-up. Chronic atrial fibrillation-rate controlled at this time. -Continue metoprolol -Rivaroxaban MAINTENANCE ISSUES -DVT prophylaxis; restarting rivaroxaban -GI prophylaxis; not indicated -Bowser catheter; not indicated -Nutrition; regular diet DISPOSITION-anticipate discharge to home with home care versus subacute rehab after the hospital stay. Edgar Muse MD
[2020-10-08] MEDS: Tamsulosin 0.4 MG Cap.ER PO SCH (20:23)
[2020-10-08] MEDS: Melatonin 3 MG Tab PO SCH (20:23)
[2020-10-09] MEDS: Ibuprofen 600 MG Tab PO PRN (00:35)
[2020-10-09 08:01] VITALS: BP 101/60; PULSE 72
[2020-10-09] MEDS: Aspirin 81 MG Tab.Chew PO SCH (09:07)
[2020-10-09] MEDS: Spironolactone 25 MG Tab PO SCH (09:07)
[2020-10-09] MEDS: Metoprolol Succinate 50 MG Tab.ER PO SCH (09:07)
[2020-10-09] MEDS: Acetaminophen 500 MG Tab PO SCH (09:08)
[2020-10-09] MEDS: Lisinopril 20 MG Tab PO SCH (09:08)
[2020-10-09] MEDS: Allopurinol 100 MG Tab PO SCH (09:08)
--- NOTE | 2020-10-09 11:09 | PCM.DCSUM1 ---
Discharge Summary - Discharge Data Discharge Date: 10/09/20 Discharge Disposition: Home, Self-Care 01 Condition: Good - Referral to Home Health Primary Care Physician: PCP None - Patient Summary/Data Consults: Consultations 09/30/20 11:01 Consult to Physical Therapy [PT Evaluation and Treatment] [CONS] Routine Please Evaluate and Treat. PT Reason for Consult: Ambulation Special Instructions: knee/ankle contractures, restore ambulatory status This query below is only for informational purposes and is not editable. Admission Diagnosis/Problem: Infection of skin 10/02/20 14:00 Consult to Physician [CONS] Routine Consulting Provider: Franklyn Jefferson Call Completed to Consulting Physician: Yes Reason for Consult: left thigh pain, dislocated patella Person Notified: FRONT LINE LEADER Date Notified: 10/02/20 - Patient Instructions Diet: Heart Healthy Diet Activity: As Tolerated Driving: Do Not Drive Showering/Bathing: August Shower Notify Provider of: Increased Pain, Swelling and Redness, Drainage - Discharge Plan Prescriptions/Med Rec: Tamsulosin [Flomax] 0.4 mg PO BEDTIME #30 cap.er Ibuprofen [Motrin] 600 mg PO Q6H PRN #30 tablet PRN Reason: Pain Acetaminophen [Tylenol Extra Strength] 1,000 mg PO TID #30 tablet MDD 3000 Home Medications: Home Meds Aspirin [Olivia Chewable Aspirin] 81 mg PO DAILY 10/05/14 [History] Multivitamin [Multivitamins] 1 tab PO DAILY 10/05/14 [History] Colchicine 1.2 mg PO ASDIRECTED 05/13/20 [History] Folic Acid 1 mg PO DAILY 05/13/20 [History] Methotrexate 10 mg PO WEEKLY 05/13/20 [History] allopurinoL [Zyloprim] 200 mg PO DAILY 05/13/20 [History] lisinopriL [Prinivil] 20 mg PO DAILY 05/13/20 [History] Calcium Carbonate/Vitamin D3 [Calcium 600Mg-D3 400 Unit Sfgl] 1 each PO BIDMEALS 09/25/20 [History] Ciclopirox [Loprox 0.77% Crm] 1 applic TOP BID PRN 09/25/20 [History] Melatonin 3 mg PO BEDTIME 09/25/20 [History] Metoprolol Succinate [Toprol Xl] 50 mg PO DAILY 09/25/20 [History] Rivaroxaban [Xarelto] 20 mg PO QPM 09/25/20 [History] Spironolactone [Aldactone] 25 mg PO DAILY 09/25/20 [History] traMADol [Ultram] 10 mg PO Q6H PRN 09/29/20 [History] Acetaminophen [Tylenol Extra Strength] 1,000 mg PO TID #30 tablet MDD 3000 10/09/20 [Rx] Ibuprofen [Motrin] 600 mg PO Q6H PRN #30 tablet 10/09/20 [Rx] Tamsulosin [Flomax] 0.4 mg PO BEDTIME #30 cap.er 10/09/20 [Rx] Referrals: Lynda Haque PA-C [Physician Water System Operator] - (1 week) Live Blair MD [Ordering Only Provider] - - Discharge Summary/Plan Comment DC Time >30 min.: No - Patient Data Vitals - Most Recent: Last Vital Signs Temp 97.6 F 10/09/20 07:00 Pulse 72 10/09/20 09:07 Resp 16 10/09/20 07:00 BP 101/60 10/09/20 09:08 Pulse Ox 97 10/09/20 07:00 Weight - Most Recent: 208 lb 15.971 oz I&O - Last 24 hours: Intake & Output 10/08/20 10/09/20 10/09/20 22:59 06:59 14:59 Intake Total 400 Output Total 450 250 Balance 400 -450 -250 Med Orders - Current: Current Medications Acetaminophen (Acetaminophen 500 Mg Tab) 1,000 mg PO TID [facility] Last Admin: 10/09/20 09:08 Dose: 1,000 mg Documented by: Allopurinol (Allopurinol 100 Mg Tab) 200 mg PO DAILY [facility] Last Admin: 10/09/20 09:08 Dose: 200 mg Documented by: Aspirin (Aspirin 81 Mg Tab.Chew) 81 mg PO DAILY [facility] Last Admin: 10/09/20 09:07 Dose: 81 mg Documented by: Ibuprofen (Ibuprofen 600 Mg Tab) 600 mg PO Q6H PRN PRN Reason: Pain Last Admin: 10/09/20 00:35 Dose: 600 mg Documented by: Lisinopril (Lisinopril 20 Mg Tab) 20 mg PO DAILY [facility] Last Admin: 10/09/20 09:08 Dose: 20 mg Documented by: Melatonin (Melatonin 3 Mg Tab) 9 mg PO BEDTIME [facility] Last Admin: 10/08/20 20:23 Dose: 9 mg Documented by: Methotrexate (Methotrexate 2.5 Mg Tab) 10 mg PO Q7D [facility] Last Admin: 10/06/20 08:06 Dose: 10 mg Documented by: Metoprolol Succinate (Metoprolol Succinate 50 Mg Tab.Er) 50 mg PO DAILY [facility] Last Admin: 10/09/20 09:07 Dose: 50 mg Documented by: Ondansetron HCl (Ondansetron 4 Mg/2 Ml Sdv) 4 mg IV Q4H PRN PRN Reason: Nausea/Vomiting Polyethylene Glycol (Polyethylene Glycol 3350 Powder 17 Gm Packet) 17 gm PO DAILY PRN PRN Reason: Constipation Last Admin: 10/03/20 20:54 Dose: 17 gm Documented by: Rivaroxaban (Rivaroxaban 10 Mg Tab) 20 mg PO WITHDINNER [facility] Last Admin: 10/08/20 18:00 Dose: 20 mg Documented by: Sodium Chloride (Sodium Chloride 0.9% 10 Ml Syringe) 10 ml FLUSH ASDIRECTED PRN PRN Reason: Keep Vein Open Spironolactone (Spironolactone 25 Mg Tab) 25 mg PO DAILY [facility] Last Admin: 10/09/20 09:07 Dose: 25 mg Documented by: Tamsulosin HCl (Tamsulosin 0.4 Mg Cap.Er) 0.4 mg PO BEDTIME [facility] Last Admin: 10/08/20 20:23 Dose: 0.4 mg Documented by: Tramadol HCl (Tramadol 50 Mg Tab) 50 mg PO Q6H PRN PRN Reason: Pain (severe 7-10) Last Admin: 10/06/20 23:42 Dose: 50 mg Documented by: Discontinued Medications Acetaminophen (Acetaminophen 325 Mg Tab) 650 mg PO Q4H PRN PRN Reason: Pain (Mild 1-3)/fever Last Admin: 10/03/20 05:28 Dose: 650 mg Documented by: Hydrocodone Bitart/Acetaminophen (Acetaminophen/Hydrocodone 325-5 Mg Tab) 1 tab PO Q4H PRN PRN Reason: Pain Hydrocodone Bitart/Acetaminophen (Acetaminophen/Hydrocodone 325-5 Mg Tab) 1 - 2 tab PO Q4H PRN PRN Reason: Pain Last Admin: 10/03/20 17:11 Dose: 1 tab Documented by: Cyclobenzaprine HCl (Cyclobenzaprine 10 Mg Tab) 10 mg PO Q8H PRN PRN Reason: Spasms Last Admin: 10/03/20 01:28 Dose: 10 mg Documented by: Divalproex Sodium (Divalproex Sodium Delayed-Release 250 Mg Tab.Cr) 250 mg PO BIDMEALS [facility] Last Admin: 10/04/20 08:10 Dose: 250 mg Documented by: Divalproex Sodium (Divalproex Sodium Delayed-Release 125 Mg Cap.Sprink) 125 mg PO ONETIME ONE Stop: 10/05/20 13:16 Last Admin: 10/05/20 13:38 Dose: 125 mg Documented by: Divalproex Sodium (Divalproex Sodium Delayed-Release 125 Mg Cap.Sprink) 125 mg PO BIDMEALS [facility] Last Admin: 10/08/20 10:05 Dose: Not Given Documented by: Fentanyl (Fentanyl 100 Mcg/2 Ml Sdv) Confirm Administered Dose 100 mcg .ROUTE .STK-MED ONE Stop: 09/30/20 09:34 Furosemide (Furosemide 20 Mg/2 Ml Vial) 20 mg IV ONETIME ONE Stop: 10/01/20 10:01 Last Admin: 10/01/20 10:26 Dose: 20 mg Documented by: Gabapentin (Gabapentin 300 Mg Cap) 300 mg PO TID [facility] Last Admin: 10/03/20 14:21 Dose: Not Given Documented by: Haloperidol (Haloperidol 1 Mg Tab) 1 mg PO ONETIME ONE Stop: 10/07/20 00:11 Last Admin: 10/07/20 00:18 Dose: 1 mg Documented by: Haloperidol Lactate (Haloperidol Lactate 5 Mg/Ml Sdv) 1 mg IV Q2H PRN PRN Reason: AGITATION Last Admin: 10/02/20 09:28 Dose: 1 mg Documented by: Haloperidol Lactate (Haloperidol Lactate 5 Mg/Ml Sdv) 2 mg IV Q2H PRN PRN Reason: AGITATION Last Admin: 10/03/20 11:00 Dose: 2 mg Documented by: Hydromorphone HCl (Hydromorphone 0.5 Mg/0.5 Ml Syringe) 0.5 mg IVPUSH Q2H PRN PRN Reason: Pain (severe 7-10) Last Admin: 09/30/20 11:15 Dose: 0.5 mg Documented by: Hydromorphone HCl (Hydromorphone 0.5 Mg/0.5 Ml Syringe) 0.5 - 1 mg IVPUSH Q1H PRN PRN Reason: Pain (severe 7-10) Last Admin: 10/01/20 09:53 Dose: 1 mg Documented by: Hydromorphone HCl (Hydromorphone 0.5 Mg/0.5 Ml Syringe) 0.5 mg IVPUSH Q2H PRN PRN Reason: Breakthrough Pain Last Admin: 10/03/20 11:16 Dose: 0.5 mg Documented by: Cefazolin Sodium 1 gm/ Sodium (Chloride) 50 mls @ 100 mls/hr IV ONETIME ONE Stop: 09/29/20 17:32 Last Admin: 09/29/20 17:25 Dose: 100 mls/hr Documented by: Sodium Chloride (Normal Saline) 1,000 mls @ 250 mls/hr IV ASDIRECTED [facility] Last Admin: 09/29/20 17:20 Dose: 250 mls/hr Documented by: Sodium Chloride (Normal Saline) 1,000 mls @ 125 mls/hr IV ASDIRECTED [facility] Last Admin: 09/30/20 00:05 Dose: 125 mls/hr Documented by: Cefazolin Sodium 1 gm/ Sodium (Chloride) 50 mls @ 200 mls/hr IV Q8HR [facility] Piperacillin Sod/Tazobactam (Sod 3.375 gm/ Sodium Chloride) 50 mls @ 100 mls/hr IV Q6H [facility] Last Admin: 09/30/20 06:02 Dose: 100 mls/hr Documented by: Vancomycin HCl 1.25 gm/ Sodium (Chloride) 250 mls @ 166.667 mls/hr IV BID [facility] Last Admin: 09/29/20 20:30 Dose: 166.667 mls/hr Documented by: Sterile Water (Sterile Water For Injection) Confirm Administered Dose 20 mls @ as directed .ROUTE .STK-MED ONE Stop: 09/29/20 19:53 Last Admin: 09/29/20 20:01 Dose: Not Given Documented by: Piperacillin/Tazobactam/ (Dextrose 3.375 gm/ Premix) 50 mls @ 100 mls/hr IV Q6H [facility] Last Admin: 09/30/20 13:45 Dose: 100 mls/hr Documented by: Vancomycin HCl 1.25 gm/ Sodium (Chloride) 250 mls @ 166.667 mls/hr IV Q12H [facility] Last Admin: 09/30/20 11:23 Dose: 166.667 mls/hr Documented by: Magnesium Sulfate (Magnesium Sulfate In Water 2 Gm/50 Ml) 2 gm in 50 mls @ 25 mls/hr IV Q6H [facility] Stop: 10/04/20 05:59 Last Admin: 10/03/20 03:29 Dose: 25 mls/hr Documented by: Potassium Phosphate 15 mmol/ (Premix) 250 mls @ 84 mls/hr IV Q3H [facility] Stop: 10/01/20 20:59 Last Admin: 10/01/20 19:06 Dose: 84 mls/hr Documented by: Sodium Chloride (Normal Saline) 500 mls @ 500 mls/hr IV ONETIME ONE Stop: 10/01/20 16:59 Last Admin: 10/01/20 16:53 Dose: 500 mls/hr Documented by: Ketorolac Tromethamine (Ketorolac 30 Mg/Ml Sdv) 30 mg IVPUSH ONETIME ONE Stop: 10/03/20 12:46 Last Admin: 10/03/20 13:07 Dose: 30 mg Documented by: Lidocaine HCl (Lidocaine 2% Jelly 10 Ml Urojet) 10 ml MUCMEM ONETIME ONE Stop: 09/30/20 19:33 Last Admin: 09/30/20 19:40 Dose: 10 ml Documented by: Melatonin (Melatonin 3 Mg Tab) 3 mg PO BEDTIME [facility] Last Admin: 09/30/20 20:52 Dose: 3 mg Documented by: Oxycodone HCl (Oxycodone 5 Mg Tab) 5 mg PO Q4H PRN PRN Reason: Pain (moderate 4-6) Last Admin: 10/03/20 05:28 Dose: 5 mg Documented by: Propofol (Propofol 200 Mg/20 Ml Sdv) Confirm Administered Dose 200 mg .ROUTE .STK-MED ONE Stop: 09/30/20 09:34 Risperidone (Risperidone 0.5 Mg Tab) 0.5 mg PO BEDTIME [facility] Last Admin: 10/07/20 20:29 Dose: 0.5 mg Documented by: Tizanidine HCl (Tizanidine 4 Mg Tab) 2 mg PO Q6H PRN PRN Reason: Muscle Spasm - Painful Last Admin: 10/03/20 08:27 Dose: 2 mg Documented by: Tizanidine HCl (Tizanidine 2 Mg Tab) 1 mg PO Q6H PRN PRN Reason: Muscle Spasm - Painful Last Admin: 10/05/20 09:23 Dose: 1 mg Documented by: Vancomycin HCl (Vancomycin 1 Gm Sdv) 1 gm IV .PHARMACY TO DOSE [facility] Stop: 09/30/20 07:30 *Q Meaningful Use (DIS) - VTE *Q VTE Pharmacological Contraindications *Q: Active Hemorrhage
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
== END 2020-10-09 12:20 | disposition home or self-care (01) | DRG 603 ==
LOC: JP.ED 16:17 → JP.MS 17:17
PROVIDERS: ADMIT Hospitalist; ATTEND Surgery
PROC: 2W3MX3Z Immobilization of Left Lower Extremity using Brace (ICD-10-PCS; principal; 2020-09-30)
PROC: 2W3MX3Z Immobilization of Left Lower Extremity using Brace (ICD-10-PCS; 2020-09-30)
DX: I48.91 Unspecified atrial fibrillation (principal); I10 Essential (primary) hypertension; L03.116 Cellulitis of left lower limb; I48.20 Chronic atrial fibrillation, unspecified; M35.3 Polymyalgia rheumatica; R33.9 Retention of urine, unspecified; F03.90 Unspecified dementia, unspecified severity, without behavioral disturbance, psychotic disturbance, mood disturbance, and anxiety; H91.90 Unspecified hearing loss, unspecified ear; Z96.659 Presence of unspecified artificial knee joint; Z91.81 History of falling; Z98.890 Other specified postprocedural states; G47.30 Sleep apnea, unspecified; Z86.73 Personal history of transient ischemic attack (TIA), and cerebral infarction without residual deficits; Z90.89 Acquired absence of other organs; Z79.01 Long term (current) use of anticoagulants; Z79.82 Long term (current) use of aspirin; Z79.899 Other long term (current) drug therapy; S89.92XD Unspecified injury of left lower leg, subsequent encounter; Z87.891 Personal history of nicotine dependence; Z95.0 Presence of cardiac pacemaker; Z98.49 Cataract extraction status, unspecified eye; I73.9 Peripheral vascular disease, unspecified; I11.0 Hypertensive heart disease with heart failure; I50.9 Heart failure, unspecified; I99.8 Other disorder of circulatory system
CPT/HCPCS: 36415; 51702; 70450; 70450-26; 73502-26-LT; 73502-LT; 73562-26-LT; 73562-LT; 73590-26-LT; 73590-LT; 80048; 80053; 81001; 83605; 83735; 83880; 84100; 84145; 85025; 85027; 86140; 93926-26; 93926-LT; 97110-GP; 97116-GP; 97161-GP; 97530-GP; 97535-GP; A9270-GY; J0690; J1170; J1630; J1885; J1940; J2543; J2704; J3010; J3370; J3475; J7030; J7040; J7050; J8610